=== PATIENT | male | born 1945 | race Caucasian/White ===

== ENCOUNTER → 2017-01-21 | Outpatient (CLI) | payer BC ==
[~2017-01-21] MED LIST: ADVA500A INH; AMLO5TAB2 PO; DIAZ10 PO; DIGO0.25 PO; DILT-48 PO; FENO160T PO; FURO1TAB60 PO; GABA300C5 PO; IPRASOL INH; LANO0.2510 PO; LANTUS2P SQ; LIPI40TA PO; METF1000 PO; MORP15TA73 PO; MORP60TA24 PO; PERC7.5T13 PO; RAMI10CA PO; VENTAER INH; VICT18IN SQ; XARE20TA PO
--- NOTE | 2017-01-24 10:39 | RADRPT ---
EXAM DATE/TIME: 01/21/2017 15:21 [facility] COMPARISON : No previous studies available for comparison. INDICATIONS : Evaluate clinical information and images for possible cryoablation procedure. The patient's outside CT scan was reviewed. This demonstrates a 1.5 cm mass arising from the lower po le of the left kidney. The lesion is in a location which would be amenable to biopsy and CT-guided cr yoablation. IMPRESSION: The patient's left renal mass would be amenable to CT-guided biopsy and cryoablation. Kendall Schmidt MD on January 24, 2017 at 10:35 Board Certified Radiologist. This report was verified electronically.
== END ==
LOC: HRAD 15:18
PROVIDERS: ATTEND Urology
DX: N28.89 Other specified disorders of kidney and ureter (principal)

== ENCOUNTER 2017-02-02 13:08 | Day surgery (SDC) | payer BC ==
[~2017-02-02 13:08] MED LIST changes: -DIAZ10 PO; -DIGO0.25 PO; -IPRASOL INH; -MORP60TA24 PO
[2017-02-02 13:45] VITALS: BP 186/111; PULSE 85; RESP 20; TEMP 99.1; O2SAT 93
--- NOTE | 2017-02-02 14:47 | RADRPT ---
EXAM DATE/TIME: 02/02/2017 00:00 [facility] COMPARISON : INDICATIONS : Indeterminate renal mass OBJECTIVE: Temperature: 99.1 Heart Rate: 85 Blood Pressure: 186/111 Respiratory: 20 Oximetry: 93 PNEUMONIA VACCINE: HISTORY OF PRESENT ILLNESS: The patient is a 71-year-old with COPD. He is currently undergoing treatment for a right upper lobe m ass. A 1.5-2 cm complex cyst was noted in the lower pole of the left kidney. The patient presents for potential biopsy and cryoablation of this lesion. PAST MEDICAL HISTORY : Hypertension. Chronic obstructive pulmonary disease. Afib back pain blood in stool PAST SURGICAL HISTORY : <<L3-L5 surgery> MEDICATIONS: <<Albuterol >> <<Amlodipine 5 >> mg q.d. <<Atorvastin 40 >> mg q.d. <<Digoxin 0.25 >> mg q.d. Diltiazem ER 24 hr 240 mg q.d. Fenofibrate 160 mg q.d. Fluticasone-Salmeterol 500-50 mcg b.i.d. Lasix (Furosemide)40 mg q.d. Neurontin (Gabapentin)300 mg t.i.d. Lantus 44units q.h.s. IMAGING STUDIES: The patient's outside CT and MR imaging was reviewed. The patient's lesion is amenable to biopsy and cryoablation. ASSESSMENT: 1.5-2 cm mass arising from the left kidney. Lesion is indeterminate appearance by CT and MR but appea rs to have increased in size when compared to previous exams. Lesion would be amenable to biopsy and cryoablation. PLAN: Patient will be scheduled for cryoablation. TIME SPENT: 15 minutes. Kendall Schmidt MD on February 02, 2017 at 14:41 Board Certified Radiologist. This report was verified electronically.
[2017-02-03] MEDS ORDERED: MORP60TA24 PO (09:23)
[2017-02-03] MEDS ORDERED: IPRASOL INH (09:23)
[2017-02-03] MEDS ORDERED: DIAZ10 PO (09:23)
[2017-02-03] MEDS ORDERED: DIGO0.25 PO (09:23)
== END 2017-02-02 14:30 | disposition home or self-care (01) ==
LOC: HROP 13:08 → HRIP 13:14 → HROP 14:30
PROVIDERS: ATTEND Urology
DX: N28.89 Other specified disorders of kidney and ureter (principal); I10 Essential (primary) hypertension; J44.9 Chronic obstructive pulmonary disease, unspecified; I48.91 Unspecified atrial fibrillation

== ENCOUNTER 2017-02-03 08:46 | Day surgery (SDC) | payer BC ==
[~2017-02-03] VITALS: Ht 182.9 cm; Wt 117.3 kg
[~2017-02-03 08:46] MED LIST changes: +LIDOCAINE HCL 1% 20 ML VIAL ONE
[2017-02-03 09:04] VITALS: BP 158/96; PULSE 77; RESP 20; TEMP 98.5; O2SAT 93
[2017-02-03] MEDS ORDERED: ceFAZolin 2 GM PREMIX 50 ML IV SCH (09:15)
[2017-02-03] MEDS ORDERED: SODIUM CHLOR 0.9% 1000 ML INJ 1,000 ML IV SCH (09:15)
[2017-02-03] MEDS ORDERED: MORP60TA24 PO (09:23)
[2017-02-03] MEDS ORDERED: IPRASOL INH (09:23)
[2017-02-03] MEDS ORDERED: DIAZ10 PO (09:23)
[2017-02-03] MEDS ORDERED: DIGO0.25 PO (09:23)
[2017-02-03 09:38] LABS: AUTOMATED NEUTROPHIL # 4.5 TH/MM3 (1.8-7.7); BASOPHIL % 0.3 % (0.0-2.0); EOSINOPHIL # 0.1 TH/MM3 (0-0.4); HEMATOCRIT 42.6 % (39.0-51.0); HEMO FLAGS DIFF FINAL; LYMPH % 24.4 % (9.0-44.0); LYMPHOCYTE # 1.7 TH/MM3 (1.0-4.8); MEAN CELL VOLUME 89.9 FL (80.0-100.0); MEAN CORPUSCULAR HEMOGLOBIN 29.5 PG (27.0-34.0); MEAN CORPUSCULAR HGB CONC 32.8 % (32.0-36.0); MONO % 8.8 % (0.0-8.0); NEUT % 64.5 % (16.0-70.0); PLATELET COUNT 169 TH/MM3 (150-450); RED BLOOD COUNT 4.73 MIL/MM3 (4.50-5.90); RED CELL DISTRIBUTION WIDTH 13.1 % (11.6-17.2); WHITE BLOOD COUNT 6.9 TH/MM3 (4.0-11.0)
[2017-02-03] MEDS ORDERED: SODIUM CHLORID 0.9% 500 ML IV PRN (09:45)
[2017-02-03] MEDS ORDERED: POVIDONE IODINE 5% (ANTISEPSIS KIT) 4 APPLICATIONS EACH NARE PRN (09:45)
[2017-02-03] MEDS ORDERED: INSULIN HUMAN REGULAR 1,000 UNITS/10 ML VIAL SQ PRN (09:45)
[2017-02-03] MEDS ORDERED: CHLORHEXIDINE GLUCONATE 2 % 1 PACK (2 CLOTHS) TOPICAL PRN (09:45)
[2017-02-03] MEDS ORDERED: LACTATED RINGER'S 1000 ML IV PRN (09:45)
[2017-02-03] MEDS ORDERED: METOPROLOL TARTRATE 25 MG TAB PO PRN (09:45)
[2017-02-03 09:47] LABS: APTT (PATIENT) 26.5 SEC (24.3-30.1); INTERNATIONAL NORMALIZED RATIO 0.9 RATIO; PROTHROMBIN TIME - PATIENT 10.2 SEC (9.8-11.6)
[2017-02-03 09:51] LABS: BICARBONATE 26.8 MEQ/L (21.0-32.0); POTASSIUM 3.9 MEQ/L (3.5-5.1)
[2017-02-03] MEDS ORDERED: MIDAZOLAM HCL 2 MG/2 ML VIAL ONE (10:56)
[2017-02-03] MEDS ORDERED: fentaNYL CITRATE 250 MCG/5 ML AMP ONE (10:56)
[2017-02-03] MEDS ORDERED: SUGAMMADEX SODIUM 200 MG/2 ML VIAL IV PUSH ONE ×2 (12:52)
--- NOTE | 2017-02-03 13:17 | PD.RAD ---
Post Procedure Progress Note Pre Procedure Diagnosis: (1) Left kidney mass Post Procedure Diagnosis: (1) Left kidney mass Procedure Date: Feb 03, 2017 Supervising Radiologist: Kendall Schmidt Anesthesia: General, Local Plan of Activity Patient to Unit: PACU Patient Condition: Good Additional Comments: Post cryoablation of the left lower pole renal mass. Complete ablation of the mass on CT No evidence of complication on follow up CT See PACS Report for procedural detail/treatment Kendall Schmidt MD Feb 03, 2017 13:17
[2017-02-03] MEDS ORDERED: DO NOT ADM ANY ANTICOAGULANT DRUGS PRN (14:15)
[2017-02-03 14:17] LABS: AUTOMATED NEUTROPHIL # 3.5 TH/MM3 (1.8-7.7); BASOPHIL % 0.6 % (0.0-2.0); EOSINOPHIL # 0.1 TH/MM3 (0-0.4); EOSINOPHIL % 1.9 % (0.0-4.0); HEMATOCRIT 38.9 % (39.0-51.0); HEMO FLAGS DIFF FINAL; LYMPH % 28.3 % (9.0-44.0); LYMPHOCYTE # 1.6 TH/MM3 (1.0-4.8); MEAN CELL VOLUME 90.1 FL (80.0-100.0); MEAN CORPUSCULAR HEMOGLOBIN 30.2 PG (27.0-34.0); MEAN CORPUSCULAR HGB CONC 33.5 % (32.0-36.0); MONO % 8.4 % (0.0-8.0); NEUT % 60.8 % (16.0-70.0); PLATELET COUNT 143 TH/MM3 (150-450); RED BLOOD COUNT 4.32 MIL/MM3 (4.50-5.90); RED CELL DISTRIBUTION WIDTH 13.1 % (11.6-17.2); WHITE BLOOD COUNT 5.7 TH/MM3 (4.0-11.0)
[2017-02-03 14:30] VITALS: BP 142/73; PULSE 68; RESP 18; TEMP 97.8; O2SAT 90
[2017-02-03 15:00] VITALS: BP 127/74; PULSE 72; RESP 16; O2SAT 94
--- NOTE | 2017-02-03 15:29 | EKG ---
Date Performed: 02/03/2017 Time Performed: 09:44:52 PTAGE: 71 years EKG: Sinus rhythm WITH SINUS ARRHYTHMIA MODERATE INTRAVENTRICULAR CONDUCTION DELAY BORDERLINE ECG Compared to prior tr acing no significant change PREVIOUS TRACING : 09/28/2015 21.30 DOCTOR: Dakota Mesa Interpretating Date/Time 02/03/2017 15:28:57
[2017-02-03 15:30] VITALS: BP 131/78; PULSE 74; RESP 18; O2SAT 94
[2017-02-03 15:54] LABS: AUTOMATED NEUTROPHIL # 6.5 TH/MM3 (1.8-7.7); BASOPHIL % 0.1 % (0.0-2.0); EOSINOPHIL # 0.1 TH/MM3 (0-0.4); EOSINOPHIL % 0.9 % (0.0-4.0); HEMATOCRIT 39.1 % (39.0-51.0); HEMO FLAGS DIFF FINAL; LYMPH % 14.2 % (9.0-44.0); LYMPHOCYTE # 1.2 TH/MM3 (1.0-4.8); MEAN CELL VOLUME 89.9 FL (80.0-100.0); MEAN CORPUSCULAR HEMOGLOBIN 30.5 PG (27.0-34.0); MEAN CORPUSCULAR HGB CONC 33.9 % (32.0-36.0); MONO % 7.3 % (0.0-8.0); NEUT % 77.5 % (16.0-70.0); PLATELET COUNT 139 TH/MM3 (150-450); RED BLOOD COUNT 4.35 MIL/MM3 (4.50-5.90); WHITE BLOOD COUNT 8.4 TH/MM3 (4.0-11.0)
[2017-02-03 16:00] VITALS: BP 125/76; PULSE 76; RESP 18; O2SAT 92
[2017-02-03 17:00] VITALS: BP 130/78; PULSE 75; RESP 18; O2SAT 93
--- NOTE | 2017-02-03 18:06 | RADRPT ---
EXAM DATE/TIME: 02/03/2017 12:14 [facility] COMPARISON: CT SIMULATION, December 04, 2015, 14:17. INDICATIONS : Left renal mass. BIOPSY SITE: Left kidney. Anesthesia and pain control was provided by the Anesthesia department. DEVICE(S): 1.) 20 gauge Temno core biopsy needle MEDICAL HISTORY : Benign prostatic hyperplasia, (BPH) Chronic obstructive pulmonary disease. Hypertension. Cardiovascul ar disease, COPD, diabetes. SURGICAL HISTORY : None. ENCOUNTER: Initial ACUITY: 1 day PAIN SCORE: 0/10 LOCATION: Left flank A total of one core specimen(s) were obtained and sent to the laboratory for pathologic evaluation. PROCEDURE: 1. CT guided renal biopsy. 2. Conscious sedation with continuous EKG and oximetry monitoring. 3. EKG and oximetry remained stable throughout the procedure. Prior to the procedure informed consent was obtained. Any appropriate prior imaging studies were rev iewed. Using automated exposure control and adjustment of the mA and/or kV according to patient size, radiat ion dose was kept as low as reasonably achievable to obtain optimal diagnostic quality images. The site was prepped in a sterile fashion. Full sterile technique was used, including cap, mask, anahy rile gloves and gown and a large sterile sheet. Hand hygiene and 2% chlorhexidine and/or betadine/al cohol prep was utilized per protocol for cutaneous antisepsis. The skin and subcutaneous tissues wer e infiltrated with local anesthetic solution. With CT guidance the previously identified target was localized. Biopsy was performed using a 20 gaug e Temno biopsy needle. Adequate hemostasis was obtained with compression at the puncture site. Follow-up CT scan reveals no hemorrhage. The patient tolerated the procedure well and there were no complications. This was immediately follow ed by cryoablation of the lesion CONCLUSION: Uncomplicated CT guided biopsy. Kendall Schmidt MD on February 03, 2017 at 18:03 Board Certified Radiologist. This report was verified electronically.
--- NOTE | 2017-02-03 18:30 | RADRPT ---
EXAM DATE/TIME: 02/03/2017 12:14 INDICATIONS : Left renal mass. Anesthesia and pain control was provided by the Anesthesia department. DEVICE(S): 1.) Cryoablation probe MEDICAL HISTORY : Cardiovascular disease. Benign prostatic hyperplasia, (BPH) Chronic obstructive pulmonary disease. Hy pertension, diabetes. SURGICAL HISTORY : None. ENCOUNTER: Initial ACUITY: 1 day PAIN SCORE: 0/10 LOCATION: PROCEDURE : 1. CT guided cryoablation. Under sterile conditions and using aseptic technique with CT guidance the left lower pole renal mass was localized . Using automated exposure control and adjustment of the mA and/or kV according to pat ient size, radiation dose was kept as low as reasonably achievable to obtain optimal diagnostic quali ty images. [employer] Cryoprobe was advanced down into the center of the lesion without difficulty. A freeze- thaw, freeze-thaw technique was employed and serial imaging demonstrated an ice ball encompassing the entire lesion. Post procedure images demonstrate expected postoperative changes without evidence of hematoma. The patient tolerated the procedure well. CONCLUSION: Uncomplicated cryoablation as above. Kendall Schmidt MD on February 03, 2017 at 18:26 Board Certified Radiologist. This report was verified electronically.
== END 2017-02-03 17:10 | disposition home or self-care (01) ==
LOC: HRAD 08:46 → HRIP 08:50 → HRAD 17:10
PROVIDERS: ATTEND Urology
DX: N28.89 Other specified disorders of kidney and ureter (principal); I25.10 Atherosclerotic heart disease of native coronary artery without angina pectoris; I10 Essential (primary) hypertension; E11.9 Type 2 diabetes mellitus without complications; J44.9 Chronic obstructive pulmonary disease, unspecified; E78.5 Hyperlipidemia, unspecified; N40.0 Benign prostatic hyperplasia without lower urinary tract symptoms; I48.91 Unspecified atrial fibrillation; G47.30 Sleep apnea, unspecified; M35.9 Systemic involvement of connective tissue, unspecified; E66.9 Obesity, unspecified; Z68.35 Body mass index [BMI] 35.0-35.9, adult; Z79.51 Long term (current) use of inhaled steroids; Z79.4 Long term (current) use of insulin; Z79.84 Long term (current) use of oral hypoglycemic drugs
CPT/HCPCS: 50200; 50593; 77012; 77013; 80048; 85025; 85610; 85730; 88305; 88341; 88342; 93005; C2618; J2250; J3010; J7030

== ENCOUNTER 2017-02-11 12:49 | Day surgery (SDC) | payer BC ==
[~2017-02-11 12:49] MED LIST changes: +DIAZ10 PO; +DIGO0.25 PO; +IPRASOL INH; -LANO0.2510 PO; -LIDOCAINE HCL 1% 20 ML VIAL ONE; -MORP15TA73 PO; +MORP60TA24 PO; -XARE20TA PO
--- NOTE | 2017-02-11 14:20 | RADRPT ---
EXAM DATE/TIME: 02/11/2017 00:00 [facility] COMPARISON : INDICATIONS : FOLLOW UP RENAL CRYOABLATION OBJ Temperature: 97.5 Heart Rate: 96 Respiratory: 18 Oximetry: 96 HISTORY OF PRESENT ILLNESS: The patient is post cryoablation of a 1.5 cm mass arising from the lower pole of the left kidney. Sim ultaneous biopsy was performed which was positive for renal cell carcinoma. IMAGING STUDIES: The patient's intraoperative CT imaging were reviewed with the patient and his . ASSESSMENT: Uncomplicated cryoablation of the patient's renal mass. The biopsy was positive for renal cell carcin patricia. PLAN: Patient will see Dr. Thrasher for followup. TIME SPENT: 15 minutes. Kendall Schmidt MD on February 11, 2017 at 14:15 Board Certified Radiologist. This report was verified electronically.
== END 2017-02-11 13:35 | disposition home or self-care (01) ==
LOC: HROP 12:49 → HRIP 13:02 → HROP 13:35
PROVIDERS: ATTEND Radiology Body Imaging
DX: C64.2 Malignant neoplasm of left kidney, except renal pelvis (principal)

== ENCOUNTER 2018-03-08 20:31 | Inpatient (IN) ==
--- NOTE | 2018-03-08 22:05 | XR ---
EXAM DATE: 03/08/2018 9:31 PM EDT AGE/SEX: 72 years / Male INDICATIONS: . Short of breath. CLINICAL DATA: This is the patient's initial encounter. Patient reports that signs and symptoms have been present for 1 day and indicates a pain score of 3/10. MEDICAL/SURGICAL HISTORY: None. None. COMPARISON: [facility], CHEST SINGLE AP, 09/28/2015. [facility], CT CHEST W/O CONTRAST, 12/30/2017. . FINDINGS: Linear opacity in the right upper lung and elevation of the right hemidiaphragm is similar to prior C T performed in December 2017. There is indistinctness of the bronchopulmonary markings right infrahilar re gion which correlates with some nonconsolidative opacities seen on prior CT. The left lung is clear. The heart is upper limits normal in size. CONCLUSION: Volume loss in the right hemithorax with opacities in the right upper and medial lower lung, similar to prior CT in December 2017. Electronically signed by: Rahat Ling MD 03/08/2018 10:03 PM EDT
[2018-03-08 22:34] LABS: Baso % (Auto) 0.4 % (0.0-2.0); Eos # (Auto) 0.1 th/mm3 (0.0-0.4); Hematocrit 41.3 % (39.0-51.0); Hemoglobin 13.6 gm/dL (13.0-17.0); Lymph % (Auto) 19.5 % (9.0-44.0); Mean Corpuscular HGB Conc 32.9 % (32.0-36.0); Mean Corpuscular Hemoglobin 30.3 pg (27.0-34.0); Mean Corpuscular Volume 92.1 fL (80.0-100.0); Mean Platelet Volume 9.4 fL (7.0-11.0); Mono # (Auto) 0.7 th/mm3 (0.0-0.9); Mono % (Auto) 7.2 % (0.0-8.0); Neut # (Auto) 7.3 th/mm3 (1.8-7.7); Neut % (Auto) 71.9 % (16.0-70.0); Platelet Count 170 th/mm3 (150-450); Red Blood Count 4.49 mil/mm3 (4.50-5.90); Red Cell Distribution Width 13.7 % (11.6-17.2); White Blood Count 10.1 th/mm3 (4.0-11.0)
--- NOTE | 2018-03-08 22:37 | ED ---
HPI General Chief Complaint: Shortness of Breath/Dyspnea Stated Complaint: SOB Time Seen by Provider: 03/08/18 20:50 Source: patient Mode of arrival: EMS Limitations: no limitations History of Present Illness MD Complaint: shortness of breath Onset (ago): hour(s) (2) Severity: severe Consistency/Duration: constant and progressively worsening Relieving factors: nothing Known history of: COPD and congestive heart failure Associated symptoms: denies other symptoms Treatment prior to arrival: oxygen and bronchodilator Related Data Home oxygen amount: 2 liters Home Medications Medication Instructions Recorded Confirmed albuterol sulfate 0.63 mg INHALATION Q4-6H PRN 03/08/18 03/08/18 albuterol sulfate [Ventolin HFA] 2 puff INHALATION Q4-6H PRN 03/08/18 03/08/18 amlodipine 5 mg PO DAILY 03/08/18 03/08/18 aspirin 81 mg PO DAILY 03/08/18 03/08/18 atorvastatin [Lipitor] 40 mg PO DAILY 03/08/18 03/08/18 canagliflozin [Invokana] 300 mg PO DAILY 03/08/18 03/08/18 diazepam [Valium] 10 mg PO BID PRN 03/08/18 03/08/18 digoxin 0.125 mg PO DAILY 03/08/18 03/08/18 diltiazem HCl 240 mg PO DAILY 03/08/18 03/08/18 fenofibrate 160 mg PO DAILY 03/08/18 03/08/18 fluticasone-salmeterol [Advair 2 INHALATION DAILY 03/08/18 Diskus] furosemide 40 mg PO DAILY 03/08/18 03/08/18 glipizide 10 mg PO DAILY 03/08/18 03/08/18 insulin glargine [Basaglar KwikPen 60 unit SUB-Q DAILY 03/08/18 03/08/18 U-100 Insulin] ipratropium bromide 1 puff INHALATION Q6H 03/08/18 03/08/18 metformin 1,000 mg PO BID 03/08/18 03/08/18 morphine 15 mg PO Q8H 03/08/18 03/08/18 oxycodone-acetaminophen [Percocet] 1 tab PO Q8H PRN 03/08/18 03/08/18 ramipril 20 mg PO DAILY 03/08/18 03/08/18 Allergies Allergy/AdvReac Type Severity Reaction Status Date / Time No Known Allergies Allergy Unverified 03/08/18 20:43 Review of Systems Except as stated in HPI: all other systems reviewed are negative [facility] Medical History Medical History Diabetes (Acute) End stage COPD (Acute) Hypertension (Acute) Social History Social History Substance History: No History of Abuse Second Hand Smoke Exposure: No Smoking Status: Never smoker How Often Do You Have a Drink Containing Alcohol: Never Recent Travel in [facility] within the Last 8 Weeks: No Recent Out of Country Travel within the Last 8 Weeks: No Immunization History Tetanus Immunization: Unsure Exam Const General: cooperative Nutritional Appearance: obese Orientation: alert, awake and oriented x3 HENMT Head: normocephalic and atraumatic Eyes General: appearance normal, both eyes and all related structures Pupils: PERRL Neck Neck: normal visual inspection and full ROM Chest Chest: normal inspection of the chest Resp Effort & Inspection: normal respiratory effort and able to speak in complete sentences Auscultation: clear to auscultation bilaterally Cardio Rate: regular rate Rhythm: regular rhythm Back/Spine/Pelvis Cervical Spine: cervical ROM normal Thoracic/Lumbar Spine: thoraco-lumbar ROM normal Skin General: no rashes or lesions noted and turgor normal Neuro General: alert, awake, oriented x3, moves all extremities and CN's II-XI intact bilaterally Extrem General: normal to inspection, full ROM and no pedal edema Psych Appearance: grossly normal Mental Status: mental status grossly normal Speech and Movement: speech and movement normal Mood: congruent mood Affect: normal affect Attitude: cooperative Thought Process: normal Thought Content: normal Judgment: judgment good Course Consultations Consultation #1: Dr. Huston Initial Documented Vital Signs Temperature 99.7 F H 03/08/18 20:37 Pulse Rate 101 H 03/08/18 20:37 Respiratory Rate 24 03/08/18 20:37 Blood Pressure 179/86 H 03/08/18 20:37 Pulse Oximetry 91 L 03/08/18 20:37 Last Documented Vital Signs Temperature 99.7 F H 03/08/18 20:37 Pulse Rate 106 H 03/09/18 00:06 Respiratory Rate 17 03/09/18 00:06 Blood Pressure 179/86 H 03/08/18 20:43 Pulse Oximetry 91 L 03/08/18 20:43 Medical Decision Making MDM Narrative Medical decision making narrative: This patient is not O2 dependent COPD patient who has had a previous history of respiratory failure who presents to us with the acute onset of increased dyspnea. He reports that he removed his oxygen to go to the bathroom. His sats dropped to 61% off of oxygen. His states that he seemed very confused. [facility] was called and he was brought to the hospital. He was treated in route with a nebulizer treatment. He is normally on oxygen at 2 L and has a usual oxygen saturation of 88-89%. He is now on 3 L with a saturation of 88-89%. His lungs are clear. Differential Diagnosis Differential Diagnosis: Differential diagnosis of dyspnea includes but is not limited to congestive heart failure, pneumonia, wheezing, pneumothorax, pulmonary embolism Medical Records Medical records reviewed: Yes I reviewed the patient's medical records. Patient has a history of end-stage COPD. He takes Lasix and Lanoxin which would suggest to me that he also has CHF. This patient's workup in the emergency department is basically negative. However, he has required increased oxygen in the emergency department. He will be admitted to observation. Lab Data Result diagrams: 03/08/18 21:05 03/08/18 21:05 Lab Results 03/08/18 03/08/18 03/08/18 Range/Units 21:05 21:05 21:05 WBC 10.1 (4.0-11.0) th/mm3 RBC 4.49 L (4.50-5.90) mil/mm3 Hgb 13.6 (13.0-17.0) gm/dL Hct 41.3 (39.0-51.0) % MCV 92.1 (80.0-100.0) fL MCH 30.3 (27.0-34.0) pg MCHC 32.9 (32.0-36.0) % RDW 13.7 (11.6-17.2) % Plt Count 170 (150-450) th/mm3 MPV 9.4 (7.0-11.0) fL Neut % (Auto) 71.9 H (16.0-70.0) % Lymph % (Auto) 19.5 (9.0-44.0) % [place] % (Auto) 7.2 (0.0-8.0) % Eos % (Auto) 1.0 (0.0-4.0) % Baso % (Auto) 0.4 (0.0-2.0) % Neut # (Auto) 7.3 (1.8-7.7) th/mm3 Lymph # (Auto) 2.0 (1.0-4.8) th/mm3 [place] # (Auto) 0.7 (0.0-0.9) th/mm3 Eos # (Auto) 0.1 (0.0-0.4) th/mm3 Baso # (Auto) 0.0 (0.0-0.2) th/mm3 WBC Differential . Differential Comment Auto diff final Sodium 143 (136-145) meq/L Potassium 4.6 (3.5-5.1) meq/L Chloride 102 (98-107) meq/L Carbon Dioxide 36.9 H (21.0-32.0) meq/L Anion Gap 4 L (5-15) meq/L BUN 17 (7-18) mg/dL Creatinine 0.79 (0.60-1.30) mg/dL Estimated GFR Greater than 89 (>89) mL/min Random Glucose 149 H (74-106) mg/dL Calcium 8.8 (8.5-10.1) mg/dL Total Bilirubin 0.3 (0.2-1.0) mg/dL AST 24 (15-37) U/L ALT 37 (12-78) U/L Alkaline Phosphatase 66 (45-117) U/L Troponin I Less than 0.02 L (0.02-0.05) ng/mL B-Natriuretic Peptide 7 (0-100) pg/mL Total Protein 7.4 (6.4-8.2) g/dL Albumin 3.9 (3.4-5.0) g/dL Imaging Data Radiologist's impression: Chest X-Ray 03/08/18 20:53 CONCLUSION: Volume loss in the right hemithorax with opacities in the right upper and medial lower lung, similar to prior CT in December 2017. ECG Data EKG Prior to Arrival: No Attestation: I personally reviewed and interpreted this ECG as follows: (EKG shows a sinus rhythm with a ventricular rate of 98. He has left axis deviation. There are no acute STT wave changes.) Discharge Plan Discharge Disposition Patient Disposition: 30 Still Patient Discharge Condition Condition: Stable Discharge Details Diagnosis: Acute exacerbation of chronic obstructive airways disease Physicians Team ED Provider: Gabbi Angeles Primary Care Provider: Parviz Covington Rxs /Orders / Referrals /Forms Prescriptions: No Action furosemide 40 mg Tablet 40 mg PO DAILY RF: 0 atorvastatin [Lipitor] 40 mg Tablet 40 mg PO DAILY RF: 0 albuterol sulfate 0.63 mg/3 mL Solution For Nebulization 0.63 mg INHALATION Q4-6H PRN (Reason: Shortness Of Breath) RF: 0 glipizide 10 mg Tablet 10 mg PO DAILY RF: 0 diltiazem HCl 240 mg Capsule,Extended Release 24 Hr 240 mg PO DAILY RF: 0 amlodipine 5 mg Tablet 5 mg PO DAILY RF: 0 fluticasone-salmeterol [Advair Diskus] 500-50 mcg/dose Blister With Device 2 Inhalation DAILY RF: 0 aspirin 81 mg Tablet,Chewable 81 mg PO DAILY RF: 0 morphine 15 mg Tablet Extended Release 15 mg PO Q8H RF: 0 digoxin 125 mcg Tablet 0.125 mg PO DAILY RF: 0 diazepam [Valium] 10 mg Tablet 10 mg PO BID PRN (Reason: Spasms) RF: 0 oxycodone-acetaminophen [Percocet] 7.5-325 mg Tablet 1 tab PO Q8H PRN (Reason: Pain) RF: 0 albuterol sulfate [Ventolin HFA] 90 mcg/actuation Hfa Aerosol Inhaler 2 puff INHALATION Q4-6H PRN (Reason: Shortness Of Breath Or Wheezing) RF: 0 metformin 500 mg Tablet Extended Release 24 Hr 1,000 mg PO BID RF: 0 ramipril 10 mg Capsule 20 mg PO DAILY RF: 0 ipratropium bromide 17 mcg/actuation Hfa Aerosol Inhaler 1 puff INHALATION Q6H RF: 0 fenofibrate 160 mg Tablet 160 mg PO DAILY RF: 0 insulin glargine [Basaglar KwikPen U-100 Insulin] 100 unit/mL (3 mL) Insulin Pen 60 unit SUB-Q DAILY RF: 0 canagliflozin [Invokana] 300 mg Tablet 300 mg PO DAILY RF: 0 Status ED Status: With Doctor
[2018-03-08 22:59] LABS: Alkaline Phosphatase 66 U/L (45-117); Total Protein 7.4 g/dL (6.4-8.2)
[2018-03-08 23:00] LABS: Alanine Aminotransferase 37 U/L (12-78); Albumin 3.9 g/dL (3.4-5.0); Anion Gap 4 meq/L (5-15); Aspartate Aminotransferase 24 U/L (15-37); Blood Urea Nitrogen 17 mg/dL (7-18); Calcium 8.8 mg/dL (8.5-10.1); Carbon Dioxide 36.9 meq/L (21.0-32.0); Chloride 102 meq/L (98-107); Glomerular Filtration Rate Greater Than 89 mL/min (>89); Glucose,Random 149 mg/dL (74-106); Sodium 143 meq/L (136-145)
[2018-03-08 23:01] LABS: Potassium 4.6 meq/L (3.5-5.1)
[2018-03-08] MEDS ORDERED: Temazepam 15 MG Capsule PO PRN (23:30)
[2018-03-08] MEDS ORDERED: Acetaminophen 325 MG Tablet PO PRN (23:30)
[2018-03-08] MEDS ORDERED: Bisacodyl 10 MG Supp RECTAL PRN (23:30)
[2018-03-08] MEDS ORDERED: diazePAM 5 MG Tablet PO PRN (23:31)
[2018-03-08] MEDS ORDERED: Dextrose 50% in Water 50 ML Vial IV.PUSH PRN (23:32)
--- NOTE | 2018-03-09 01:19 | P.HPIM ---
History of Present Illness Primary Care Physician: Parviz Covington MD History of Present Illness: 72 y/o male with a history of COPD on 2L at home, HTN, HLD, DM presented to the ED with complaints of shortness of breath. Patient states while at home he had a desaturation of o2 into the 60s while on his 2L, and he states he could not catch his breath. He denies any chest pain, cough, sputum production, fever or chills. He states he just feels fatigued. Prior to arrival EMS gave patient solumedrol IV and patient states he feels a little better. Patient is currently sating 85 on 3L, o2 was increased to 4L on examination. Patient denies any use of a nebulizer at home, but thinks he may like one. - Diagnosis (1) Acute exacerbation of chronic obstructive airways disease Review of Systems All other systems reviewed negative except as stated in HPI PMFSH - History History Provided By: Patient - Medical History Medical History: Medical History (Last Updated 03/09/18 @ 01:23 by VIDAL Brody) Afib Diabetes End stage COPD Hypertension - Surgical History Surgical History: Surgical History (Last Updated 03/09/18 @ 01:23 by VIDAL Brody) No history of previous surgery - Tobacco History Second Hand Smoke Exposure: No Tobacco Use In Past 30 Days: No Smoking Status: Never smoker - Alcohol History How Often Do You Have a Drink Containing Alcohol: Never - Substance Use History Substance History: No History of Abuse, Active Abuse, Past History - Travel History Recent Travel in the [place] Within the Last 8 Weeks: No Recent Travel Out of the Country Within the Last 8 Weeks: No - Immunization History Tetanus Immunization: <5 Years Hx Influenza Vaccine This Season: Yes Medications and Allergies Active Medications: Active Medications Acetaminophen (Tylenol) 650 mg PO Q4H PRN PRN Reason: Temp > 100.4 Al Hydroxide/Mg Hydroxide (Milk Of Magnesia Liq) 30 ml PO Q12H PRN PRN Reason: Mild Constipation Albuterol (Duoneb Neb (Gaurav)) 1 ampul NEB Q4HR NEB [facility] Last Admin: 03/09/18 00:01 Dose: 1 ampul Amlodipine Besylate (Norvasc) 5 mg PO DAILY [facility] Aspirin (Aspirin Chew) 81 mg PO DAILY [facility] Atorvastatin Calcium (Lipitor) 40 mg PO DAILY [facility] Bisacodyl (Dulcolax Supp) 10 mg RECTAL DAILY PRN PRN Reason: SEVERE CONSITIPATION Budesonide/Formoterol Fumarate (Symbicort 160/4.5 Mcg Inh) 2 puff INH DAILY [facility] Dextrose (D50w Vial) 50 ml IV.PUSH UNSCH PRN PRN Reason: PER HYPOGLYCEMIA PROTOCOL Diazepam (Valium) 10 mg PO BID PRN PRN Reason: ANXIETY Digoxin (Lanoxin) 125 mcg PO DAILY [facility] Diltiazem HCl (Cardizem Cd 24hr) 240 mg PO DAILY [facility] Fenofibrate (Tricor) 145 mg PO DAILY [facility] Furosemide (Lasix) 40 mg PO DAILY [facility] Glucagon (Glucagon Inj) 1 mg OTHER PRN PRN PRN Reason: for Hypoglycemia Protocol Heparin Sodium (Porcine) (Heparin Inj) 5,000 units SQ Q12H [facility] Insulin Human Regular (Novolin R Correctional Sugar Inj) 0 units SQ ACHS AND 3AM [facility]; Protocol Lactulose (Lactulose Liq) 30 ml PO DAILY PRN PRN Reason: SEVERE CONSITIPATION Methylprednisolone Sodium Succinate (Solumedrol Inj) 60 mg IV.PUSH Q6H [facility] Morphine Sulfate (Oramorph Sr) 15 mg PO Q8H [facility] Ondansetron HCl (Zofran Inj) 4 mg IV.PUSH Q6H PRN PRN Reason: NAUSEA OR VOMITING Patient Own Medication- (Insulin Glargine [Basaglar Kwikpen U-100 Insulin] 0 each SQ DAILY [facility] Senna/Docusate Sodium (Hoda-Colace) 1 tab PO BID [facility] Sennosides (Senokot) 17.2 mg PO Q12H PRN PRN Reason: Moderate Constipation Sodium Chloride (Ns Flush) 2 ml IV.FLUSH BID [facility] Sodium Chloride (Ns Flush) 2 ml IV.FLUSH PRN PRN PRN Reason: FLUSH AFTER USING IV ACCESS Temazepam (Restoril) 15 mg PO HS PRN PRN Reason: INSOMNIA Allergies Allergy/AdvReac Type Severity Reaction Status Date / Time No Known Allergies Allergy Unverified 03/08/18 20:43 Home Medications Medication Instructions Recorded Confirmed Type albuterol sulfate 0.63 mg INHALATION Q4-6H PRN 03/08/18 03/08/18 History albuterol sulfate [Ventolin HFA] 2 puff INHALATION Q4-6H PRN 03/08/18 03/08/18 History amlodipine 5 mg PO DAILY 03/08/18 03/08/18 History aspirin 81 mg PO DAILY 03/08/18 03/08/18 History atorvastatin [Lipitor] 40 mg PO DAILY 03/08/18 03/08/18 History canagliflozin [Invokana] 300 mg PO DAILY 03/08/18 03/08/18 History diazepam [Valium] 10 mg PO BID PRN 03/08/18 03/08/18 History digoxin 0.125 mg PO DAILY 03/08/18 03/08/18 History diltiazem HCl 240 mg PO DAILY 03/08/18 03/08/18 History fenofibrate 160 mg PO DAILY 03/08/18 03/08/18 History fluticasone-salmeterol [Advair 2 INHALATION DAILY 03/08/18 History Diskus] furosemide 40 mg PO DAILY 03/08/18 03/08/18 History glipizide 10 mg PO DAILY 03/08/18 03/08/18 History insulin glargine [Basaglar KwikPen 60 unit SUB-Q DAILY 03/08/18 03/08/18 History U-100 Insulin] ipratropium bromide 1 puff INHALATION Q6H 03/08/18 03/08/18 History metformin 1,000 mg PO BID 03/08/18 03/08/18 History morphine 15 mg PO Q8H 03/08/18 03/08/18 History oxycodone-acetaminophen [Percocet] 1 tab PO Q8H PRN 03/08/18 03/08/18 History ramipril 20 mg PO DAILY 03/08/18 03/08/18 History Exam Vital signs: Vital Signs 03/08/18 20:37 03/08/18 20:43 03/09/18 00:06 Temperature 99.7 F H Pulse Rate 101 H 100 H 106 H Respiratory Rate 24 24 17 Blood Pressure 179/86 H 179/86 H Pulse Oximetry 91 L 91 L 03/09/18 00:45 Temperature Pulse Rate 103 H Respiratory Rate 19 Blood Pressure 148/83 H Pulse Oximetry 88 L Intake & Output 03/08/18 03/08/18 03/09/18 06:59 18:59 06:59 Weight 113.398 kg - Constitutional mild distress - Routine HEENT Exam Head: Present: normocephalic Eye: Present: EOMI, PERRL - Routine Neck Exam Present: supple, full ROM. Absent: JVD - Routine Respiratory Exam Present: decreased breath sounds, diminished air movement. Absent: rhonchi, wheezes - Routine Cardiovascular Exam Present: RRR - Routine Abdominal Exam Present: soft, normoactive bowel sounds. Absent: distended - Routine Extremities Exam Present: full ROM. Absent: cyanosis, edema - Routine Skin Exam Present: intact, warm - Routine Neurological Exam Present: alert, oriented X3 Results - Labs CBC & Chem 7: 03/08/18 21:05 03/08/18 21:05 Labs: Short CBC 03/08/18 Range/Units 21:05 WBC 10.1 (4.0-11.0) th/mm3 Hgb 13.6 (13.0-17.0) gm/dL Hct 41.3 (39.0-51.0) % Plt Count 170 (150-450) th/mm3 BMP 03/08/18 21:05 Sodium 143 Potassium 4.6 Chloride 102 Carbon Dioxide 36.9 H BUN 17 Creatinine 0.79 Calcium 8.8 Cardiac Enzymes 03/08/18 Range/Units 21:05 Troponin I Less than 0.02 L (0.02-0.05) ng/mL Liver Function 03/08/18 Range/Units 21:05 Total Bilirubin 0.3 (0.2-1.0) mg/dL AST 24 (15-37) U/L ALT 37 (12-78) U/L Alkaline Phosphatase 66 (45-117) U/L Albumin 3.9 (3.4-5.0) g/dL - Imaging Impressions Chest X-Ray 03/08/18 20:53 CONCLUSION: Volume loss in the right hemithorax with opacities in the right upper and medial lower lung, similar to prior CT in December 2017. Caprini VTE Risk Assessment Caprini VTE Risk Assessment: Moderate/High Risk (score >= 2) Caprini Risk Assessment Model: Point Value = 1 Point Value = 2 Point Value = 3 Point Value = 5 Age 41-60 Minor surgery BMI > 25 kg/m2 Swollen legs Varicose veins or History of unexplained or recurrent spontaneous Oral contraceptives or hormone replacement Sepsis (< 1 month) Serious lung disease, including pneumonia (< 1 month) Abnormal pulmonary function Acute myocardial infarction Congestive heart failure (< 1 month) History of inflammatory bowel disease Medical patient at bed rest Age 61-74 Arthroscopic surgery Major open surgery (> 45 min) Laparoscopic surgery (> 45 min) Malignancy Confined to bed (> 72 hours) Immobilizing plaster cast Central venous access Age >= 75 History of VTE Family history of VTE Factor V Leiden Prothrombin [id number] Lupus anticoagulant Anticardiolipin antibodies Elevated serum homocysteine Heparin-induced thrombocytopenia Other congenital or acquired thrombophilia Stroke (< 1 month) Elective arthroplasty Hip, pelvis, or leg fracture Acute spinal cord injury (< 1 month) Prophylaxis Regimen: Total Risk Factor Score Risk Level Prophylaxis Regimen 0-1 Low Early ambulation 2 Moderate Order ONE of the following: *Sequential Compression Device (SCD) *Heparin 5000 units SQ BID 3-4 Higher Order ONE of the following medications: *Heparin 5000 units SQ TID *Enoxaparin/Lovenox 40 mg SQ daily (WT < 150 kg, CrCl > 30 mL/min) *Enoxaparin/Lovenox 30 mg SQ daily (WT < 150 kg, CrCl > 10-29 mL/min) *Enoxaparin/Lovenox 30 mg SQ BID (WT < 150 kg, CrCl > 30 mL/min) AND/OR *Sequential Compression Device (SCD) 5 or more Highest Order ONE of the following medications: *Heparin 5000 units SQ TID (Preferred with Epidurals) *Enoxaparin/Lovenox 40 mg SQ daily (WT < 150 kg, CrCl > 30 mL/min) *Enoxaparin/Lovenox 30 mg SQ daily (WT < 150 kg, CrCl > 10-29 mL/min) *Enoxaparin/Lovenox 30 mg SQ BID (WT < 150 kg, CrCl > 30 mL/min) AND *Sequential Compression Device (SCD) Assessment and Plan - Assessment (1) Acute exacerbation of chronic obstructive airways disease Code(s): J44.1 - Chronic obstructive pulmonary disease with (acute) exacerbation Status: Acute - Plan 72 y/o male with a history of COPD on 2L at home, HTN, HLD, DM presented to the ED with complaints of shortness of breath. Copd exacerbation on chronic COPD Chest x ray reviewed and unremarkable -DuoNeb and solumedrol IV ordered -Oxygen as needed, titrate for 02< 88 -Patient may benefit from a home nebulizer -Resume home medication inhalers HTN, chronic, controlled -Resume home medications, monitor vitals Diabetes, chronic -Accu checks with SSI -Diabetic diet Afib, chronic, controlled -Resume home medication dig and Cardizem po -Monitor telemetry DVT prophylaxis: Heparin SQ Discussed Condition With: Patient and rN H&P: Quality - VTE Deep Vein Thrombosis/Pulmonary Embolism Present on Admission: No
[2018-03-09] MEDS: Morphine Sulfate 15 MG SR Tablet PO SCH ×4 (03:43→23:52)
[2018-03-09] MEDS: MethylPREDNISolone Sod Succinate Inj 40 MG/ML Vial IV.PUSH SCH ×4 (03:44→18:31)
[2018-03-09] MEDS: Insulin NovoLIN Regular Correctional Sugar Inj SQ SCH ×5 (03:45→23:53)
[2018-03-09] MEDS: Heparin - SQ 10,000 UNITS/ML Vial SQ SCH ×2 (03:45→16:27)
[2018-03-09] MEDS ORDERED: FLUTICASONE SALMETEROL INHALATION SCH (09:00)
[2018-03-09] MEDS ORDERED: INSULIN GLARGINE SQ SCH (09:00)
[2018-03-09] MEDS: Senna/Docusate Sodium 8.6/50 MG Tablet PO SCH ×2 (10:11→23:52)
[2018-03-09] MEDS: Digoxin 125 MCG Tablet PO SCH (10:12)
[2018-03-09] MEDS: amLODIPine 5 MG Tablet PO SCH (10:13)
[2018-03-09] MEDS: dilTIAZem CD 240 MG Capsule PO SCH (10:13)
[2018-03-09] MEDS: Furosemide 40 MG Tablet PO SCH (10:13)
[2018-03-09] MEDS: Fenofibrate 145 MG Tablet PO SCH (10:29)
[2018-03-09] MEDS: Budesonide-Formoterol 160/4.5 MCG 6 GM Inhaler INH SCH (11:03)
--- NOTE | 2018-03-09 11:43 | P.PN ---
Subjective Interval history: Follow-up visit COPD exacerbation. Patient seen and examined today. Reports he is doing well. States he is able to breathe better. Discussed with patient plan with adjustment on his medication. Continue with IV steroids for now we will switch over to p.o. prednisone if he appears to be better tomorrow. He follows with Dr. Lopez pulmonology an outpatient. States that he has O2 nasal cannula even at home. Denies pain and discomfort. Denies chest pain, palpitations, headaches, dizziness. Denies fevers, chills, n/v/d. Denies dysuria. Seen of patient updated patient condition. Discussed with plan of treatment for the patient. states that patient has been on Xarelto previous year and has been discontinued because he developed bleeding in his urine. He had colonoscopy done by Dr. Alvarez last year and that they have mentioned several times causing the bleeding. ECHO 09/30/15 EF 50-55% Physical Exam Vital signs: Vital Signs 03/08/18 20:37 03/08/18 20:43 03/09/18 00:06 Temperature 99.7 F H Pulse Rate 101 H 100 H 106 H Respiratory Rate 24 24 17 Blood Pressure 179/86 H 179/86 H Pulse Oximetry 91 L 91 L 03/09/18 00:45 03/09/18 03:54 03/09/18 04:01 Temperature 98.6 F Pulse Rate 103 H 100 H 94 H Respiratory Rate 19 17 18 Blood Pressure 148/83 H 136/77 Pulse Oximetry 88 L 89 L 03/09/18 07:46 03/09/18 07:48 03/09/18 11:24 Temperature 97.9 F 97.8 F Pulse Rate 93 H 79 97 H Respiratory Rate 18 18 16 Blood Pressure 128/76 156/81 H Pulse Oximetry 92 L 93 L Intake & Output 03/08/18 03/09/18 03/09/18 18:59 06:59 18:59 Output Total 500 / 500 Balance -500 / -500 Weight 113.398 kg Output: Urine 500 / 500 Results - Labs CBC & Chem 7: 03/08/18 21:05 03/08/18 21:05 Laboratory Results - last 24 hr 03/08/18 03/08/18 03/08/18 21:05 21:05 21:05 WBC 10.1 RBC 4.49 L Hgb 13.6 Hct 41.3 MCV 92.1 MCH 30.3 MCHC 32.9 RDW 13.7 Plt Count 170 MPV 9.4 Neut % (Auto) 71.9 H Lymph % (Auto) 19.5 Pershing % (Auto) 7.2 Eos % (Auto) 1.0 Baso % (Auto) 0.4 Neut # (Auto) 7.3 Lymph # (Auto) 2.0 Pershing # (Auto) 0.7 Eos # (Auto) 0.1 Baso # (Auto) 0.0 WBC Differential . Differential Comment Auto diff final Sodium 143 Potassium 4.6 Chloride 102 Carbon Dioxide 36.9 H Anion Gap 4 L BUN 17 Creatinine 0.79 Estimated GFR Greater than 89 POC Glucose Random Glucose 149 H Calcium 8.8 Total Bilirubin 0.3 AST 24 ALT 37 Alkaline Phosphatase 66 Troponin I Less than 0.02 L B-Natriuretic Peptide 7 Total Protein 7.4 Albumin 3.9 03/09/18 03/09/18 03:27 09:32 WBC RBC Hgb Hct MCV MCH MCHC RDW Plt Count MPV Neut % (Auto) Lymph % (Auto) Pershing % (Auto) Eos % (Auto) Baso % (Auto) Neut # (Auto) Lymph # (Auto) Pershing # (Auto) Eos # (Auto) Baso # (Auto) WBC Differential Differential Comment Sodium Potassium Chloride Carbon Dioxide Anion Gap BUN Creatinine Estimated GFR POC Glucose 219 H 201 H Random Glucose Calcium Total Bilirubin AST ALT Alkaline Phosphatase Troponin I B-Natriuretic Peptide Total Protein Albumin - Imaging Impressions Chest X-Ray 03/08/18 20:53 CONCLUSION: Volume loss in the right hemithorax with opacities in the right upper and medial lower lung, similar to prior CT in December 2017. Assessment and Plan - Assessment (1) Acute exacerbation of chronic obstructive airways disease Code(s): J44.1 - Chronic obstructive pulmonary disease with (acute) exacerbation Status: Acute - Plan 72 y/o male with a history of COPD on 2L at home, HTN, HLD, DM presented to the ED with complaints of shortness of breath. Patient states while at home he had a desaturation of o2 into the 60s while on his 2L, and he states he could not catch his breath. Copd exacerbation on chronic COPD Chest x ray reviewed and unremarkable -DuoNeb and solumedrol IV ordered, taper, switch to p.o. prednisone when improved. -Oxygen as needed, titrate for 02< 88 -Patient may benefit from a home nebulizer -Resume home medication inhalers symbicort, add spiriva -Start PO Levaquin HTN, chronic, controlled -Resume home medications, monitor vitals Diabetes, chronic -Accu checks with SSI -Diabetic diet Afib, chronic, controlled -Resume home medication dig and Cardizem po -Monitor telemetry -Not on anticoags, [id number] score 3, recommend to start eliquis. Discuss with . Review of patient's medical records showed he was admitted to the hospital 09/29/15 for COPD exacerbation, respiratory failure. During that time patient was on Xarelto and was discharged home with Xarelto. Patient had another visit to the hospital 06/23/16, colonoscopy procedure, impression showed colon polyps, colitis of distal sigmoid and rectum. Biopsy pending during that time repeat colonoscopy recommended in 3 years. He had no bleeding episode on any notes during that time. Patient also had hospital visit were in he had a biopsy of left renal mass. Otherwise, there were no notes referring to GIB due to Xarelto. DVT prophylaxis: Heparin SQ Code Status: Full Code Discussed Condition With: Patient, nurse, Dr. Stovall Discharge Planning: Plan to DC home when clinically improved, possibly tomorrow, switch over to p.o. prednisone
[2018-03-09] MEDS: levoFLOXacin 750 MG Tablet PO SCH (16:32)
--- NOTE | 2018-03-09 19:23 | ECG ---
Date Performed: 03/08/2018 Time Performed: 21:03:52 PTAGE: 72 years EKG: Sinus rhythm MARKED LEFT AXIS DEVIATION MODERATE INTRAVENTRICULAR CONDUCTION DELAY ABNORMAL ECG PREVIOUS TRACING : 02/03/2017 09.44 Since the previous tracing, no significant change noted DOCTOR: Jamar Hennessy Interpretating Date/Time 03/09/2018 19:21:36
[2018-03-10] MEDS: Insulin NovoLIN Regular Correctional Sugar Inj SQ SCH ×3 (05:23→12:43)
[2018-03-10] MEDS: MethylPREDNISolone Sod Succinate Inj 40 MG/ML Vial IV.PUSH SCH ×2 (05:44)
[2018-03-10 08:08] VITALS: RESP 18
[2018-03-10] MEDS: Fenofibrate 145 MG Tablet PO SCH (08:39)
[2018-03-10] MEDS: amLODIPine 5 MG Tablet PO SCH (08:40)
[2018-03-10] MEDS: levoFLOXacin 750 MG Tablet PO SCH (08:40)
[2018-03-10] MEDS: Digoxin 125 MCG Tablet PO SCH (08:40)
[2018-03-10] MEDS: Senna/Docusate Sodium 8.6/50 MG Tablet PO SCH (08:41)
[2018-03-10] MEDS: dilTIAZem CD 240 MG Capsule PO SCH (08:41)
[2018-03-10] MEDS: Furosemide 40 MG Tablet PO SCH (08:41)
[2018-03-10] MEDS: Morphine Sulfate 15 MG SR Tablet PO SCH ×2 (08:42→14:55)
[2018-03-10] MEDS: Budesonide-Formoterol 160/4.5 MCG 6 GM Inhaler INH SCH (08:44)
--- NOTE | 2018-03-10 09:49 | P.DS ---
Date of admission: 03/09/18 14:50 Primary care physician: Parviz Covington MD Attending physician on discharge: Fadi Stovall Anticipated date of discharge: 03/10/18 Brief History from admission: 72 y/o male with a history of COPD on 2L at home, HTN, HLD, DM presented to the ED with complaints of shortness of breath. Patient states while at home he had a desaturation of o2 into the 60s while on his 2L, and he states he could not catch his breath. He denies any chest pain, cough, sputum production, fever or chills. He states he just feels fatigued. Prior to arrival EMS gave patient solumedrol IV and patient states he feels a little better. Patient is currently sating 85 on 3L, o2 was increased to 4L on examination. Patient denies any use of a nebulizer at home, but thinks he may like one. DS: Diagnosis - Discharge Diagnosis (1) Acute exacerbation of chronic obstructive airways disease Status: Acute DS: Medications - Discharge Medications Prescriptions: levofloxacin 750 mg PO DAILY #4 tab prednisone [Deltasone] 20 mg PO BID 5 Days #10 tab tiotropium bromide [Spiriva with HandiHaler] 18 mcg INH DAILY #1 inh DS: Summary Hospital Course: 72 y/o male with a history of COPD on 2L at home, HTN, HLD, DM presented to the ED with complaints of shortness of breath. Patient states while at home he had a desaturation of o2 into the 60s while on his 2L, and he states he could not catch his breath. Patient is O2 dependent. Had COPD exacerbation. Chest x- ray showed a remote he was given duo nebs and Solu-Medrol IV which is now being tapered off. He will take p.o. prednisone at home for several days. Continue with oxygen at home. Continue with nebulization at home. He was started also on p.o. Levaquin. Patient got tiotropium, Symbicort and he will continue this at home. Recommend to follow-up with his brick shader Dr. Lopez. Patient has hypertension and diabetes which was managed during his hospitalization. He has chronic atrial fibrillation were and he continued to take his digoxin and Cardizem p.o. He is not on any anticoagulant but his [id number] score 3, recommend to start eliquis. Discuss with . Review of patient's medical records showed he was admitted to the hospital 09/29/15 for COPD exacerbation, respiratory failure. During that time patient was on Xarelto and was discharged home with Xarelto. Patient had another visit to the hospital 06/23/16 , colonoscopy procedure, impression showed colon polyps, colitis of distal sigmoid and rectum. Biopsy pending during that time repeat colonoscopy recommended in 3 years. He had no bleeding episode on any notes during that time. Patient also had hospital visit were in he had a biopsy of left renal mass. Otherwise, there were no notes referring to GIB due to Xarelto or hematuria secondary to Xarelto. However according to the patient they stopped the Xarelto because of hematuria. 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 Patient is significantly improved. Able to walk around to the bathroom without oxygen and has been tolerating it. Patient has met maximal benefits of hospitalization. Clinically stable for discharge. - Time Spent with Patient Total time spent providing and/or coordinating discharge services: Less than 30 minutes - Quality: VTE Deep Vein Thrombosis/Pulmonary Embolism Present on Admission: No Exam Vital signs: Vital Signs 03/09/18 11:24 03/09/18 15:21 03/09/18 16:07 Temperature 97.8 F 97.7 F Pulse Rate 97 H 87 81 Respiratory Rate 16 17 20 Blood Pressure 156/81 H 126/65 Pulse Oximetry 93 L 93 L 03/09/18 16:19 03/09/18 20:00 03/09/18 20:07 Temperature 98.4 F Pulse Rate 88 89 Respiratory Rate 20 16 16 Blood Pressure 137/66 Pulse Oximetry 91 L 03/09/18 20:08 03/09/18 23:35 03/10/18 00:00 Temperature 98.1 F Pulse Rate 87 88 Respiratory Rate 16 16 Blood Pressure 108/67 Pulse Oximetry 93 L 90 L 03/10/18 03:57 03/10/18 04:00 03/10/18 08:04 Temperature 97.8 F Pulse Rate 85 91 H 87 Respiratory Rate 16 16 18 Blood Pressure 130/73 Pulse Oximetry 90 L 96 Intake & Output 03/09/18 03/10/18 03/10/18 18:59 06:59 18:59 Intake Total 2640 / 2640 420 / 420 Output Total 500 / 500 Balance 2140 / 2140 420 / 420 Intake: Oral 2640 / 2640 420 / 420 Output: Urine 500 / 500 Urine/Stool Mix 0 / 0 Other: # Voids 8 3 Narrative: GENERAL: This is a well-nourished, well-developed patient, in no apparent distress. SKIN: Warm and dry HEENT: Normocephalic. Pupils equal round and reactive. Nose without bleeding. Airway patent. NECK: Trachea midline. CARDIOVASCULAR: Regular rate and rhythm without murmurs, gallops, or rubs. RESPIRATORY: Diminished BS. Moderate Air entry No wheezes, rales, or rhonchi. GASTROINTESTINAL: Abdomen soft, non-tender, nondistended. Bowel Sounds normoactive x4. MUSCULOSKELETAL: Extremities without clubbing, cyanosis, or edema. NEUROLOGICAL: Awake and alert. Oriented to place, person. No focal neuro deficit. Moves all extremities. Normal speech. Results Procedures completed during hospitalization: None Labs on day of discharge: Labs from last 24 hours 03/10/18 03/10/18 03/09/18 08:36 05:20 16:24 POC Glucose 209 H 193 H 302 H 03/09/18 13:39 POC Glucose 188 H - Impressions ITS Impressions Chest X-Ray 03/08/18 20:53 CONCLUSION: Volume loss in the right hemithorax with opacities in the right upper and medial lower lung, similar to prior CT in December 2017. Discharge Plan - Discharge Disposition Patient Disposition: 01 Discharge Home - Discharge Condition Condition: Stable - Discharge Order Discharge Orders: Discharge Order (Routine); Ordered 03/10/18 Ordered By: Tez Solis - Physicians Team Primary Care Provider: Parviz Covington Attending Provider: Fadi Stovall
[2018-03-10] MEDS ORDERED: Tiotropium Bromide 18 MCG/ACT Inhaler INH SCH (11:00)
[2018-03-10] MEDS: Heparin - SQ 10,000 UNITS/ML Vial SQ SCH ×2 (12:43)
[2018-03-10] MEDS ORDERED: MethylPREDNISolone Sod Succinate Inj 40 MG/ML Vial IV.PUSH SCH (14:00)
[2018-03-10] MEDS ORDERED: predniSONE 20 MG Tablet PO ONE (15:16)
[2018-03-10 16:20] VITALS: BP 130/69; PULSE 105; TEMP 97.4; O2SAT 90
== END 2018-03-10 18:27 | disposition home or self-care (01) ==
LOC: NEPC 20:31 → NEDA 20:31 → NEPGCP 03-09 00:48
PROVIDERS: ADMIT Internal Medicine; ATTEND Internal Medicine
DX: E78.5 Hyperlipidemia, unspecified; Z99.81 Dependence on supplemental oxygen; I10 Essential (primary) hypertension; E11.9 Type 2 diabetes mellitus without complications; Z79.899 Other long term (current) drug therapy; J44.1 Chronic obstructive pulmonary disease with (acute) exacerbation; Z79.82 Long term (current) use of aspirin; Z79.51 Long term (current) use of inhaled steroids; Z79.4 Long term (current) use of insulin; I48.2 Chronic atrial fibrillation

== ENCOUNTER 2018-03-16 23:45 | Inpatient (IN) ==
[2018-03-16] MEDS ORDERED: Sod Chloride 0.9% Inj 1,000 ML IV.SIG ONE (23:57)
[2018-03-17 00:23] LABS: Baso % (Auto) 0.1 % (0.0-2.0); Eos # (Auto) 0.3 th/mm3 (0.0-0.4); Eos % (Auto) 1.9 % (0.0-4.0); Hematocrit 44.5 % (39.0-51.0); Hemoglobin 14.4 gm/dL (13.0-17.0); Lymph # (Auto) 2.3 th/mm3 (1.0-4.8); Lymph % (Auto) 14.4 % (9.0-44.0); Mean Corpuscular HGB Conc 32.3 % (32.0-36.0); Mean Corpuscular Hemoglobin 30.1 pg (27.0-34.0); Mean Corpuscular Volume 93.1 fL (80.0-100.0); Mean Platelet Volume 9.2 fL (7.0-11.0); Mono # (Auto) 0.8 th/mm3 (0.0-0.9); Mono % (Auto) 5.3 % (0.0-8.0); Neut # (Auto) 12.6 th/mm3 (1.8-7.7); Neut % (Auto) 78.3 % (16.0-70.0); Platelet Count 158 th/mm3 (150-450); Red Blood Count 4.77 mil/mm3 (4.50-5.90); Red Cell Distribution Width 14.2 % (11.6-17.2); White Blood Count 16.1 th/mm3 (4.0-11.0)
--- NOTE | 2018-03-17 00:29 | XR ---
EXAM DATE: 03/17/2018 12:23 AM EDT AGE/SEX: 72 years / Male INDICATIONS: Short of breath. CLINICAL DATA: This is the patient's initial encounter. Patient reports that signs and symptoms have been present for 1 day and indicates a pain score of Nonresponsive. MEDICAL/SURGICAL HISTORY: None. None. COMPARISON: [facility] – [place], CHEST 1V SINGLE AP, 03/08/2018. . FINDINGS: Stable linear parenchymal opacity in the right upper lobe. More prominent linear parenchymal opacity in the right lower lung zone with persistent mild volume loss. Patchy airspace disease in the left lo wer lung zone new since prior exam. Cardiomegaly mediastinal contours are within normal limits. Remai nder of the exam is unchanged. CONCLUSION: 1. New patchy left lower lobe airspace disease concerning for pneumonia or aspiration in the appropr iate clinical setting. 2. More prominent scarring/atelectasis and volume loss in the right lower lung zone. 3. Stable right upper lung zone scarring. Electronically signed by: Pino Nuñez MD 03/17/2018 12:28 AM EDT
[2018-03-17 00:34] LABS: Activated Partial Thrombo Time 20.5 sec (24.3-30.1); INR 0.9 Ratio; Prothrombin Time 9.4 sec (9.8-11.6)
--- NOTE | 2018-03-17 00:34 | ED ---
HPI General Chief complaint: Respiratory Symptoms Stated complaint: resp problems Time Seen by Provider: 03/16/18 23:55 Source: patient and EMS Mode of arrival: EMS History of Present Illness HPI narrative: 72-year-old male presents with 1 hour history of shortness of breath. He denies any other concurrent complaints currently. History is limited given clinical acuity. Initial room air sats were 60 Onset (ago): hour(s) Location: chest Severity: similar to prior episodes Treatments prior to arrival: other (Solu-Medrol and 2 breathing treatments) Related Data Home Medications Medication Instructions Recorded Confirmed albuterol sulfate 0.63 mg INHALATION Q4-6H PRN 03/08/18 03/16/18 albuterol sulfate [Ventolin HFA] 2 puff INHALATION Q4-6H PRN 03/08/18 03/16/18 amlodipine 5 mg PO DAILY 03/08/18 03/16/18 aspirin 81 mg PO DAILY 03/08/18 03/16/18 atorvastatin [Lipitor] 40 mg PO DAILY 03/08/18 03/16/18 canagliflozin [Invokana] 300 mg PO DAILY 03/08/18 03/16/18 diazepam [Valium] 10 mg PO BID PRN 03/08/18 03/16/18 digoxin 0.125 mg PO DAILY 03/08/18 03/16/18 diltiazem HCl 240 mg PO DAILY 03/08/18 03/16/18 fenofibrate 160 mg PO DAILY 03/08/18 03/16/18 fluticasone-salmeterol [Advair 2 INHALATION DAILY 03/08/18 Diskus] furosemide 40 mg PO DAILY 03/08/18 03/16/18 glipizide 10 mg PO DAILY 03/08/18 03/16/18 insulin glargine [Basaglar KwikPen 60 unit SUB-Q DAILY 03/08/18 03/16/18 U-100 Insulin] ipratropium bromide 1 puff INHALATION Q6H 03/08/18 03/16/18 metformin 1,000 mg PO BID 03/08/18 03/16/18 morphine 15 mg PO Q8H 03/08/18 03/16/18 oxycodone-acetaminophen [Percocet] 1 tab PO Q8H PRN 03/08/18 03/16/18 ramipril 20 mg PO DAILY 03/08/18 03/16/18 Previous Rx's Medication Instructions Recorded levofloxacin 750 mg PO DAILY #4 tab 03/10/18 tiotropium bromide [Spiriva with 18 mcg INH DAILY #1 inh 03/10/18 HandiHaler] Allergies Allergy/AdvReac Type Severity Reaction Status Date / Time No Known Allergies Allergy Unverified 03/08/18 20:43 Review of Systems ROS Unobtainable other (Clinical acuity) [facility] Medical History Medical History Afib (Acute) Anxiety (Acute) Chronic pain (Acute) Diabetes (Acute) End stage COPD (Acute) Hypertension (Acute) Surgical History Surgical History No history of previous surgery (Acute) Social History Social History Substance History: No History of Abuse, Active Abuse and Past History Second Hand Smoke Exposure: No Smoking Status: Never smoker How Often Do You Have a Drink Containing Alcohol: Never Recent Travel in [facility] within the Last 8 Weeks: No Recent Out of Country Travel within the Last 8 Weeks: No Immunization History Tetanus Immunization: Unsure Exam Narrative Exam Narrative: GENERAL: 72 y/o male who appears short of breath SKIN: Focused skin assessment warm/dry. HEAD: Atraumatic. Normocephalic. EYES: Pupils equal and round. No scleral icterus. No injection or drainage. ENT: No nasal bleeding or discharge. Mucous membranes pink and moist. NECK: Trachea midline. CARDIOVASCULAR: Regular rate and rhythm. No murmur appreciated. RESPIRATORY: Decreased breath sounds bilaterally. Tachypnea noted GASTROINTESTINAL: Abdomen soft,nondistended. MUSCULOSKELETAL: No obvious deformities. No clubbing. No cyanosis. NEUROLOGICAL: Awake, No obvious cranial nerve deficits. Normal speech. Procedures Intubation Additional Comments: After the risks and benefits were discussed the following procedure was performed: INTUBATION: The patient was put in optimal position for the procedure. Rapid sequence intubation was initiated by me using 20 milligrams of etomidate IV and 100 milligrams of succinylcholine IV. The patient was intubated with a 8-0 cuffed endotracheal tube. Tube placement was confirmed by visualization of the tube and balloon passing through the cords, capnometry and subsequent chest x-ray. Breath sounds were equal and well aerated bilaterally postintubation. No breath sounds over stomach. Patient tolerated procedure well. Course Reevaluation(s) Reevaluation #1: improving some with bipap will closely monitor, family updated Reevaluation #2: after reviewing abg and chest xray, patient and family agree to intubation and icu admit, given fluids and antibiotics Consultations Consultation #1: dr dietz agrees to admit Initial Documented Vital Signs Pulse Rate 116 H 03/16/18 23:51 Respiratory Rate 30 H 03/16/18 23:51 Blood Pressure 202/97 H 03/16/18 23:51 Pulse Oximetry 83 L 03/16/18 23:51 Last Documented Vital Signs Temperature 100.0 F H 03/17/18 00:10 Pulse Rate 110 H 03/17/18 01:15 Respiratory Rate 28 H 03/17/18 01:15 Blood Pressure 173/79 H 03/17/18 01:15 Pulse Oximetry 92 L 03/17/18 01:15 Critical Care Time Critical Care Time: Yes Total Critical Care Time: 35 Attestation: Aggregate critical care time was 55 minutes. Time to perform other separately billable procedures was not included in the critical care time. My time did not include minutes spent treating any other patients simultaneously or on activities that did not directly contribute to the patient's treatment. The services I provided to this patient were to treat and/or prevent clinically significant deterioration that could result in: Respiratory failure, I provided critical care services requiring my management, as noted below: Chart data review, documentation time, medication orders and management, vital sign assessments/reviewing monitor data, ordering and reviewing lab tests, ordering and interpreting/reviewing x-rays and diagnostic studies, care of the patient and discussion of the patient with the admitting physicians. Medical Decision Making MDM Narrative Medical decision making narrative: Patient with saturation in the 80s on 10 L. Placed on BiPAP and will check blood work and imaging and closely monitor. Repeat DuoNeb. Differential Diagnosis Differential Diagnosis: COPD, pneumonia, pneumothorax, anemia, renal failure Lab Data Lab results reviewed: Yes I reviewed the patient's lab results. Result diagrams: 03/17/18 00:00 03/17/18 00:00 Lab Results 03/17/18 03/17/18 03/17/18 Range/Units 00:00 00:00 00:00 WBC 16.1 H (4.0-11.0) th/mm3 RBC 4.77 (4.50-5.90) mil/mm3 Hgb 14.4 (13.0-17.0) gm/dL Hct 44.5 (39.0-51.0) % MCV 93.1 (80.0-100.0) fL MCH 30.1 (27.0-34.0) pg MCHC 32.3 (32.0-36.0) % RDW 14.2 (11.6-17.2) % Plt Count 158 (150-450) th/mm3 MPV 9.2 (7.0-11.0) fL Neut % (Auto) 78.3 H (16.0-70.0) % Lymph % (Auto) 14.4 (9.0-44.0) % Rawlins % (Auto) 5.3 (0.0-8.0) % Eos % (Auto) 1.9 (0.0-4.0) % Baso % (Auto) 0.1 (0.0-2.0) % Neut # (Auto) 12.6 H (1.8-7.7) th/mm3 Lymph # (Auto) 2.3 (1.0-4.8) th/mm3 Rawlins # (Auto) 0.8 (0.0-0.9) th/mm3 Eos # (Auto) 0.3 (0.0-0.4) th/mm3 Baso # (Auto) 0.0 (0.0-0.2) th/mm3 WBC Differential . Differential Comment Auto diff final PT 9.4 L (9.8-11.6) sec INR 0.9 Ratio APTT 20.5 L (24.3-30.1) sec Sodium 143 (136-145) meq/L Potassium 3.8 (3.5-5.1) meq/L Chloride 96 L (98-107) meq/L Carbon Dioxide 39.8 H (21.0-32.0) meq/L Anion Gap 7 (5-15) meq/L BUN 17 (7-18) mg/dL Creatinine 0.79 (0.60-1.30) mg/dL Estimated GFR Greater than 89 (>89) mL/min Random Glucose 176 H (74-106) mg/dL Lactic Acid (0.4-2.0) mmol/L Calcium 9.0 (8.5-10.1) mg/dL Phosphorus 4.8 (2.5-4.9) mg/dL Magnesium 2.1 (1.5-2.5) mg/dL Total Bilirubin 0.2 (0.2-1.0) mg/dL AST 16 (15-37) U/L ALT 40 (12-78) U/L Alkaline Phosphatase 65 (45-117) U/L Total Creatine Kinase 58 (39-308) U/L Troponin I Less than 0.02 L (0.02-0.05) ng/mL Total Protein 7.4 (6.4-8.2) g/dL Albumin 3.8 (3.4-5.0) g/dL 03/17/18 Range/Units 00:00 WBC (4.0-11.0) th/mm3 RBC (4.50-5.90) mil/mm3 Hgb (13.0-17.0) gm/dL Hct (39.0-51.0) % MCV (80.0-100.0) fL MCH (27.0-34.0) pg MCHC (32.0-36.0) % RDW (11.6-17.2) % Plt Count (150-450) th/mm3 MPV (7.0-11.0) fL Neut % (Auto) (16.0-70.0) % Lymph % (Auto) (9.0-44.0) % Rawlins % (Auto) (0.0-8.0) % Eos % (Auto) (0.0-4.0) % Baso % (Auto) (0.0-2.0) % Neut # (Auto) (1.8-7.7) th/mm3 Lymph # (Auto) (1.0-4.8) th/mm3 Rawlins # (Auto) (0.0-0.9) th/mm3 Eos # (Auto) (0.0-0.4) th/mm3 Baso # (Auto) (0.0-0.2) th/mm3 WBC Differential Differential Comment PT (9.8-11.6) sec INR Ratio APTT (24.3-30.1) sec Sodium (136-145) meq/L Potassium (3.5-5.1) meq/L Chloride (98-107) meq/L Carbon Dioxide (21.0-32.0) meq/L Anion Gap (5-15) meq/L BUN (7-18) mg/dL Creatinine (0.60-1.30) mg/dL Estimated GFR (>89) mL/min Random Glucose (74-106) mg/dL Lactic Acid 2.4 H (0.4-2.0) mmol/L Calcium (8.5-10.1) mg/dL Phosphorus (2.5-4.9) mg/dL Magnesium (1.5-2.5) mg/dL Total Bilirubin (0.2-1.0) mg/dL AST (15-37) U/L ALT (12-78) U/L Alkaline Phosphatase (45-117) U/L Total Creatine Kinase (39-308) U/L Troponin I (0.02-0.05) ng/mL Total Protein (6.4-8.2) g/dL Albumin (3.4-5.0) g/dL Imaging Data Attestation: I personally reviewed and interpreted this imaging study as follows : Radiologist's impression: Chest X-Ray 03/16/18 23:55 CONCLUSION: Discharge Plan Discharge Disposition Patient Disposition: 30 Still Patient Discharge Condition Condition: Critical Discharge Details Diagnosis: Respiratory failure, Acute exacerbation of chronic obstructive airways disease , Pneumonia Physicians Team ED Provider: Catherine Griffin Primary Care Provider: Parviz Covington Attending Provider: Frantz Dietz Interventions Interventions: Vital Signs Last Done: 03/17/18 01:15 Status ED Status: Admitted Patient
[2018-03-17 00:35] LABS: Albumin 3.8 g/dL (3.4-5.0); Anion Gap 7 meq/L (5-15); Aspartate Aminotransferase 16 U/L (15-37); Blood Urea Nitrogen 17 mg/dL (7-18); Carbon Dioxide 39.8 meq/L (21.0-32.0); Chloride 96 meq/L (98-107); Glomerular Filtration Rate Greater Than 89 mL/min (>89); Glucose,Random 176 mg/dL (74-106); Magnesium 2.1 mg/dL (1.5-2.5); Potassium 3.8 meq/L (3.5-5.1); Sodium 143 meq/L (136-145)
[2018-03-17 00:36] LABS: Alanine Aminotransferase 40 U/L (12-78); Phosphorus 4.8 mg/dL (2.5-4.9)
[2018-03-17 00:40] LABS: Alkaline Phosphatase 65 U/L (45-117); Total Protein 7.4 g/dL (6.4-8.2)
[2018-03-17 00:44] LABS: Creatine Kinase 58 U/L (39-308)
[2018-03-17] MEDS ORDERED: Azithromycin Inj 500 MG in Sodium Chlor 0.9% Inj 250 ML IV.SIG STA (01:19)
[2018-03-17] MEDS ORDERED: Piperacil/Tazo 4.5 GM Premix 4.5 GM/100 ML BAG IV.SIG STA (01:19)
[2018-03-17] MEDS ORDERED: Sod Chloride 0.9% Inj 1,000 ML IV.SIG ONE ×2 (01:22→01:46)
[2018-03-17] MEDS ORDERED: Succinylcholine Inj 100 MG/5 ML Syringe IV.PUSH ONE (01:27)
[2018-03-17] MEDS ORDERED: Etomidate Inj 40 MG/20 ML Vial IV.PUSH ONE (01:27)
[2018-03-17] MEDS ORDERED: Bisacodyl 10 MG Supp RECTAL PRN (01:37)
[2018-03-17] MEDS: Propofol 1000 mg/100 ml Inj 1,000 MG/100 ML BOTTLE IV.CONT PRN ×2 (01:50→05:13)
--- NOTE | 2018-03-17 01:51 | P.HPCC ---
History of Present Illness Primary Care Physician: Parviz Covington MD History of Present Illness: 72-year-old male with history of severe COPD presents with 1 hour history of shortness of breath. He denied any other concurrent complaints . History is limited given clinical acuity. Initial room air sats were 60 and the patient was intubated by ED attending for respiratory failure. Inpatient Certification: I certify that the inpatient services were ordered in accordance with Medicare regulations governing the order. 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 - Medical History Medical History: Medical History (Last Reviewed 03/17/18 @ 07:32 by Patricai Mullen) Afib Anxiety Chronic pain Diabetes End stage COPD Hypertension - Surgical History Surgical History: Surgical History (Last Reviewed 03/17/18 @ 07:32 by Patricia Mullen) No history of previous surgery - Tobacco History Second Hand Smoke Exposure: No Smoking Status: Never smoker - Alcohol History How Often Do You Have a Drink Containing Alcohol: Never - Substance Use History Substance History: No History of Abuse, Active Abuse, Past History - Travel History Recent Travel in the [place] Within the Last 8 Weeks: No Recent Travel Out of the Country Within the Last 8 Weeks: No - Immunization History Tetanus Immunization: Unsure Medications and Allergies Active Medications: Active Medications Acetaminophen (Tylenol) 650 mg PO Q6H PRN PRN Reason: PAIN 1-10 AND/OR FEVER >101F Al Hydroxide/Mg Hydroxide (Milk Of Magniglesia Liq) 30 ml PO Q12H PRN PRN Reason: Mild Constipation Albuterol (Duoneb Neb (Prn)) 1 ampul NEB Q4HR NEB TEVIN Albuterol (Duoneb Neb (Prn)) 1 ampul NEB Q2HR NEB PRN PRN Reason: WHEEZING Bisacodyl (Dulcolax Supp) 10 mg RECTAL DAILY PRN PRN Reason: SEVERE CONSITIPATION Chlorhexidine Gluconate (Peridex 0.12% Oral Kit) 15 ml OROPHARYNG BID@0800, 2000 [facility] Chlorhexidine Gluconate (Chlorhexidine 2% Cloth) 3 pack TOPICAL DAILY@0400 PRN PRN Reason: Extra cloth needed Stop: 03/22/18 03:59 Chlorhexidine Gluconate (Chlorhexidine 2% Cloth) 3 pack TOPICAL DAILY@0400 TEVIN Stop: 03/22/18 03:59 Famotidine (Pepcid Pf Inj) 20 mg IV.PUSH Q12HR [facility] Heparin Sodium (Porcine) (Heparin Inj) 5,000 units SQ Q8H [facility] Azithromycin 500 mg/ Sodium (Chloride) 250 mls @ 250 mls/hr IV.SIG STAT STA Stop: 03/17/18 02:18 Propofol (Diprivan 1000 Mg/100 Ml Inj) 1,000 mg in 100 mls @ 3.814 mls/hr IV.CONT TITRATE PRN; Protocol PRN Reason: Per Protocol Sodium Chloride (Ns Inj) 1,000 mls @ 84 mls/hr IV.CONT .[id number] [facility] Piperacillin/Tazobactam/Dextrose (Zosyn 4.5 Gm Premix) 4.5 gm in 100 mls @ 200 mls/hr IV.SIG Q6H [facility] Pharmacy Profile Note (Vancomycin Consult Pharmacy) 0 mls @ 0 mls/hr OTHER UNSCH [facility] Lactulose (Lactulose Liq) 30 ml PO DAILY PRN PRN Reason: SEVERE CONSITIPATION Midazolam HCl (Versed Inj) 2 mg IV.PUSH Q1H PRN PRN Reason: SEDATION Morphine Sulfate (Morphine Inj) 2 mg IV.PUSH Q2H PRN PRN Reason: PAIN SCALE 6 TO 10 Ondansetron HCl (Zofran Inj) 4 mg IV.PUSH Q6H PRN PRN Reason: NAUSEA OR VOMITING Senna/Docusate Sodium (Hoda-Colace) 1 tab PO BID [facility] Sennosides (Senokot) 17.2 mg PO Q12H PRN PRN Reason: Moderate Constipation Sodium Chloride (Ns Flush) 2 ml IV.FLUSH PRN PRN PRN Reason: FLUSH AFTER USING IV ACCESS Sodium Chloride (Ns Flush) 2 ml IV.FLUSH BID [facility] Sodium Chloride (Ns Flush) 2 ml IV.FLUSH PRN PRN PRN Reason: FLUSH AFTER USING IV ACCESS Allergies Allergy/AdvReac Type Severity Reaction Status Date / Time No Known Allergies Allergy Unverified 03/08/18 20:43 Home Medications Medication Instructions Recorded Confirmed Type albuterol sulfate 0.63 mg INHALATION Q4-6H PRN 03/08/18 03/16/18 History albuterol sulfate [Ventolin HFA] 2 puff INHALATION Q4-6H PRN 03/08/18 03/16/18 History amlodipine 5 mg PO DAILY 03/08/18 03/16/18 History aspirin 81 mg PO DAILY 03/08/18 03/16/18 History atorvastatin [Lipitor] 40 mg PO DAILY 03/08/18 03/16/18 History canagliflozin [Invokana] 300 mg PO DAILY 03/08/18 03/16/18 History diazepam [Valium] 10 mg PO BID PRN 03/08/18 03/16/18 History digoxin 0.125 mg PO DAILY 03/08/18 03/16/18 History diltiazem HCl 240 mg PO DAILY 03/08/18 03/16/18 History fenofibrate 160 mg PO DAILY 03/08/18 03/16/18 History fluticasone-salmeterol [Advair 2 INHALATION DAILY 03/08/18 History Diskus] furosemide 40 mg PO DAILY 03/08/18 03/16/18 History glipizide 10 mg PO DAILY 03/08/18 03/16/18 History insulin glargine [Basaglar KwikPen 60 unit SUB-Q DAILY 03/08/18 03/16/18 History U-100 Insulin] ipratropium bromide 1 puff INHALATION Q6H 03/08/18 03/16/18 History metformin 1,000 mg PO BID 03/08/18 03/16/18 History morphine 15 mg PO Q8H 03/08/18 03/16/18 History oxycodone-acetaminophen [Percocet] 1 tab PO Q8H PRN 03/08/18 03/16/18 History ramipril 20 mg PO DAILY 03/08/18 03/16/18 History Results - Labs CBC & Chem 7: 03/17/18 00:00 03/17/18 00:00 Labs: Short CBC 03/17/18 Range/Units 00:00 WBC 16.1 H (4.0-11.0) th/mm3 Hgb 14.4 (13.0-17.0) gm/dL Hct 44.5 (39.0-51.0) % Plt Count 158 (150-450) th/mm3 BMP 03/17/18 00:00 Sodium 143 Potassium 3.8 Chloride 96 L Carbon Dioxide 39.8 H BUN 17 Creatinine 0.79 Calcium 9.0 Cardiac Enzymes 03/17/18 Range/Units 00:00 Total Creatine Kinase 58 (39-308) U/L Troponin I Less than 0.02 L (0.02-0.05) ng/mL Liver Function 03/17/18 Range/Units 00:00 Total Bilirubin 0.2 (0.2-1.0) mg/dL AST 16 (15-37) U/L ALT 40 (12-78) U/L Alkaline Phosphatase 65 (45-117) U/L Albumin 3.8 (3.4-5.0) g/dL - Imaging Impressions Chest X-Ray 03/16/18 23:55 CONCLUSION: Exam Vital signs: Vital Signs 03/16/18 23:51 03/16/18 23:58 03/17/18 00:00 Temperature Pulse Rate 116 H 114 H Respiratory Rate 30 H Blood Pressure 202/97 H Pulse Oximetry 83 L 93 L 03/17/18 00:01 03/17/18 00:05 03/17/18 00:10 Temperature 100.0 F H Pulse Rate 116 H Respiratory Rate 16 Blood Pressure Pulse Oximetry 93 L 03/17/18 01:15 Temperature Pulse Rate 110 H Respiratory Rate 28 H Blood Pressure 173/79 H Pulse Oximetry 92 L Intake & Output 03/16/18 03/16/18 03/17/18 06:59 18:59 06:59 Weight 127.139 kg - Constitutional mild distress - Routine HEENT Exam Head: Present: normocephalic, atraumatic Eye: Present: PERRL ENT: Present: mucous membranes moist - Routine Neck Exam Present: supple. Absent: JVD, carotid bruit - Routine Respiratory Exam Present: accessory muscle use, patient mechanically ventilated, rhonchi, wheezes. Absent: stridor, crackles - Routine Cardiovascular Exam Present: RRR, S1, S2 - Routine Abdominal Exam Present: soft, normoactive bowel sounds. Absent: tenderness, distended - Routine Extremities Exam Absent: cyanosis, clubbing, edema - Routine Skin Exam Present: intact. Absent: cyanosis - Routine Neurological Exam Present: moving all extremities Caprini VTE Risk Assessment Caprini VTE Risk Assessment: Moderate/High Risk (score >= 2) Caprini Risk Assessment Model: Point Value = 1 Point Value = 2 Point Value = 3 Point Value = 5 Age 41-60 Minor surgery BMI > 25 kg/m2 Swollen legs Varicose veins or History of unexplained or recurrent spontaneous Oral contraceptives or hormone replacement Sepsis (< 1 month) Serious lung disease, including pneumonia (< 1 month) Abnormal pulmonary function Acute myocardial infarction Congestive heart failure (< 1 month) History of inflammatory bowel disease Medical patient at bed rest Age 61-74 Arthroscopic surgery Major open surgery (> 45 min) Laparoscopic surgery (> 45 min) Malignancy Confined to bed (> 72 hours) Immobilizing plaster cast Central venous access Age >= 75 History of VTE Family history of VTE Factor V Leiden Prothrombin [id number] Lupus anticoagulant Anticardiolipin antibodies Elevated serum homocysteine Heparin-induced thrombocytopenia Other congenital or acquired thrombophilia Stroke (< 1 month) Elective arthroplasty Hip, pelvis, or leg fracture Acute spinal cord injury (< 1 month) Prophylaxis Regimen: Total Risk Factor Score Risk Level Prophylaxis Regimen 0-1 Low Early ambulation 2 Moderate Order ONE of the following: *Sequential Compression Device (SCD) *Heparin 5000 units SQ BID 3-4 Higher Order ONE of the following medications: *Heparin 5000 units SQ TID *Enoxaparin/Lovenox 40 mg SQ daily (WT < 150 kg, CrCl > 30 mL/min) *Enoxaparin/Lovenox 30 mg SQ daily (WT < 150 kg, CrCl > 10-29 mL/min) *Enoxaparin/Lovenox 30 mg SQ BID (WT < 150 kg, CrCl > 30 mL/min) AND/OR *Sequential Compression Device (SCD) 5 or more Highest Order ONE of the following medications: *Heparin 5000 units SQ TID (Preferred with Epidurals) *Enoxaparin/Lovenox 40 mg SQ daily (WT < 150 kg, CrCl > 30 mL/min) *Enoxaparin/Lovenox 30 mg SQ daily (WT < 150 kg, CrCl > 10-29 mL/min) *Enoxaparin/Lovenox 30 mg SQ BID (WT < 150 kg, CrCl > 30 mL/min) AND *Sequential Compression Device (SCD) Assessment and Plan - Assessment and Plan Plan: Respiratory failure -COPD exacerbation -Community-acquired pneumonia -Empiric broad-spectrum antibiotics -Vent bundle -DuoNeb scheduled and as needed -IV steroid -SBTs and attempt to extubate daily Afib -Continue digoxin -Hold Cardizem due to borderline blood pressure Anxiety -Diazepam as needed when extubated Chronic pain -Resume morphine MS when extubated Diabetes -Insulin sliding scale -Hold Levemir while n.p.o., resume when tube feeds at the goal -Hold p.o. meds Hypertension -Continue ramipril DVT GI prophylaxis -Teds SCDs -Subcu heparin -Pepcid Critical Care: The total critical care time was 35 minutes. Time to perform other separately billable procedures was not included in the critical care time.
[2018-03-17] MEDS ORDERED: Vancomycin Consult Pharmacy 1 EACH OTHER SCH (02:00)
[2018-03-17 02:49] LABS: Bilirubin,Urine Negative (Negative); Clarity,Urine Clear (Clear); Color,Urine Yellow (Yellw/Straw); Glucose,Urine (UA) 500 or Greater mg/dL (Negative); Leukocyte Esterase,Urine Negative (Negative); Nitrite,Urine Negative (Negative); Specific Gravity,Urine 1.027 (1.002-1.035); Squamous Epithelial Cell,Urine <1 /hpf (0-5)
[2018-03-17] MEDS ORDERED: Vancomycin Inj 2,500 MG in Sodium Chlor 0.9% Inj 500 ML IV.SIG ONE (03:00)
--- NOTE | 2018-03-17 03:01 | XR ---
EXAM DATE: 03/17/2018 2:55 AM EDT AGE/SEX: 72 years / Male INDICATIONS: Post intubation. CLINICAL DATA: This is the patient's subsequent encounter. Patient reports that signs and symptoms h ave been present for 1 day and indicates a pain score of Nonresponsive. MEDICAL/SURGICAL HISTORY: None. None. COMPARISON: [facility] [place], CHEST 1V SINGLE AP, 03/17/2018. . FINDINGS: ETT is at the level of the clavicles. NGT courses beyond the GE junction with tip omitted from the im age. Progressive airspace disease in the lower lobes bilaterally with redemonstration of scarring in the right lung. Cardiomediastinal contours are stable. Remainder of the exam is unchanged. CONCLUSION: 1. ETT in good position. NGT beyond the GE junction. 2. Worsening left lower lobe airspace consolidation. 3. Right lower lobe airspace consolidation, likely atelectasis. 4. Right-sided parenchymal scarring. Electronically signed by: Pino Nuñez MD 03/17/2018 3:00 AM EDT
[2018-03-17 03:10] LABS: ABG Base Excess 11.7 mmol/L (-2-2); ABG PCO2 82 mmHg (38-42); ABG PO2 93 mmHg (61-120)
[2018-03-17] MEDS: Sod Chloride 0.9% Inj 1,000 ML IV.CONT SCH ×2 (03:12→14:37)
[2018-03-17] MEDS ORDERED: Chlorhexidine Gluconate 2% 1 Pack (2 Cloths) TOPICAL PRN (04:00)
[2018-03-17 04:39] LABS: ABG Base Excess 13.6 mmol/L (-2-2); ABG PCO2 90 mmHg (38-42); ABG PO2 72 mmHg (61-120)
[2018-03-17] MEDS: Chlorhexidine Gluconate 2% 1 Pack (2 Cloths) TOPICAL SCH (05:12)
[2018-03-17] MEDS: Oral Hygiene Kit OROPHARYNG SCH ×3 (05:12→18:30)
[2018-03-17] MEDS: Heparin - SQ 10,000 UNITS/ML Vial SQ SCH ×3 (05:13→22:01)
[2018-03-17] MEDS: Chlorhexidine 0.12% Oral Kit 15 ML UDC OROPHARYNG SCH ×2 (10:14→22:01)
[2018-03-17] MEDS: Senna/Docusate Sodium 8.6/50 MG Tablet PO SCH ×2 (10:15→22:01)
[2018-03-17] MEDS: Famotidine PF Inj 20 MG/2 ML Vial IV.PUSH SCH ×2 (10:15→22:01)
[2018-03-17] MEDS: Piperacil/Tazo 4.5 GM Premix 4.5 GM/100 ML BAG IV.SIG SCH ×3 (10:15→22:00)
--- NOTE | 2018-03-17 10:41 | P.PNCC ---
Subjective Subjective Remarks/Hospital Course: 72-year-old male with history of severe COPD presents with 1 hour history of shortness of breath. He denied any other concurrent complaints . History is limited given clinical acuity. Initial room air sats were 60 and the patient was intubated by ED attending for respiratory failure. 03/17 1000 hours: Patient is still requiring high levels of inspired oxygen. Review of the chest x-rays reveals considerable bullous replacement in the upper lobes with compression of the lower lobes by upper lobe expansion. The bibasilar infiltrates are probably a combination of pneumonia and atelectasis. This gentleman is improving particularly difficult to oxygenate and I suspect will require mechanical ventilation for at least 3-5 days. Objective Vital Signs / I&O: Vital Signs 03/16/18 23:51 03/16/18 23:58 03/17/18 00:00 Temperature Pulse Rate 116 H 114 H Respiratory Rate 30 H Blood Pressure 202/97 H Pulse Oximetry 83 L 93 L 03/17/18 00:01 03/17/18 00:05 03/17/18 00:10 Temperature 100.0 F H Pulse Rate 116 H Respiratory Rate 16 Blood Pressure Pulse Oximetry 93 L 03/17/18 01:15 03/17/18 02:02 03/17/18 02:17 Temperature Pulse Rate 110 H 104 H 103 H Respiratory Rate 28 H 16 16 Blood Pressure 173/79 H 135/61 114/55 L Pulse Oximetry 92 L 93 L 03/17/18 02:52 03/17/18 03:07 03/17/18 03:14 Temperature Pulse Rate 94 H 91 H 90 Respiratory Rate 16 16 16 Blood Pressure 92/50 L 93/53 L 106/56 L Pulse Oximetry 93 L 95 03/17/18 03:17 03/17/18 03:40 03/17/18 03:55 Temperature Pulse Rate Respiratory Rate 16 19 Blood Pressure Pulse Oximetry 92 L 92 L 95 03/17/18 04:00 03/17/18 04:03 03/17/18 04:08 Temperature Pulse Rate 88 86 Respiratory Rate 19 16 19 Blood Pressure 96/51 L Pulse Oximetry 95 03/17/18 08:38 Temperature Pulse Rate 86 Respiratory Rate 18 Blood Pressure Pulse Oximetry 98 Intake & Output 03/16/18 03/17/18 03/17/18 18:59 06:59 18:59 Intake Total 2450 / 2450 Output Total 1350 / 1350 Balance 1100 / 1100 Weight 127.139 kg Intake: IV 2450 / 2450 Diprivan 1000 mg/100 ml Inj 1, 100 / 100 000 mg In 100 ml @ 5 MCG/KG/MIN 3.814 mls/hr IV.CONT TITRATE PRN Rx#:[id number] Azithromycin Inj 500 MG In NS 250 / 250 Inj 250 ML @ 250 mls/hr IV.SIG STAT STA Rx#:[id number] Zosyn 4.5 GM Premix 4.5 gm In 100 / 100 100 ml @ 200 mls/hr IV.SIG STAT STA Rx#:[id number] NS Inj 1,000 ML @ Wide Open IV. 1999 SIG BOLUS ONE Rx#:[id number] Output: Urine Amount (Catheter) 1350 / 1350 Indwelling Urethral Catheter 1350 / 1350 Result Diagrams: 03/17/18 00:00 03/17/18 00:00 Objective Remarks: - Imaging Impressions Chest X-Ray 03/16/18 23:55 CONCLUSION: Hyperinflation upper lobe with bullous disease. Bibasilar atelectasis and consolidation consistent with pneumonia. Exam Vital signs: Vital Signs 03/16/18 23:51 03/16/18 23:58 03/17/18 00:00 Temperature Pulse Rate 116 H 114 H Respiratory Rate 30 H Blood Pressure 202/97 H Pulse Oximetry 83 L 93 L 03/17/18 00:01 03/17/18 00:05 03/17/18 00:10 Temperature 100.0 F H Pulse Rate 116 H Respiratory Rate 16 Blood Pressure Pulse Oximetry 93 L 03/17/18 01:15 Temperature Pulse Rate 110 H Respiratory Rate 28 H Blood Pressure 173/79 H Pulse Oximetry 92 L Intake & Output 03/16/18 03/16/18 03/17/18 06:59 18:59 06:59 Weight 127.139 kg - Constitutional Calm, sedated. - Routine HEENT Exam Head: Present: normocephalic, atraumatic Eye: Present: PERRL ENT: Present: mucous membranes moist - Routine Neck Exam Present: supple. Orally intubated. Absent: JVD, carotid bruit - Routine Respiratory Exam Present: Still mechanically ventilated, with diffuse rhonchi and light wheezes. Absent: stridor, crackles - Routine Cardiovascular Exam Present: RRR, S1, S2, neck veins are full - Routine Abdominal Exam Present: soft, normoactive bowel sounds. No guarding but mildly distended. Absent: tenderness, distended - Routine Extremities Exam Well-perfused. 12+ generalized edema lower extremities below the knee - Routine Skin Exam Present: intact. Absent: cyanosis - Routine Neurological Exam Present: moving all extremities spontaneously. His eyes to loud voice. Withdraws 4 limbs to stimulation as well. 3 spontaneously over ventilator. Assessment and Plan - Assessment and Plan Plan: Respiratory failure -COPD exacerbation -Community-acquired pneumonia -Peripheral edema, suspect heart failure. 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 I anticipate prolonged period of mechanical ventilation. Critical care 45 minutes
--- NOTE | 2018-03-17 12:12 | ECG ---
Date Performed: 03/17/2018 Time Performed: 00:22:30 PTAGE: 72 years EKG: SINUS TACHYCARDIA WITH FIRST DEGREE AV BLOCK LEFT ANTERIOR FASCICULAR BLOCK NONSPECIFIC ST & T-WAVE ABNORMALITY ABNORMAL ECG PREVIOUS TRACING : 03/08/2018 21.03 Since the previous tracing, no significant change noted DOCTOR: Oleg Martínez Interpretating Date/Time 03/17/2018 12:11:48
--- NOTE | 2018-03-17 12:12 | ECG ---
Date Performed: 03/17/2018 Time Performed: 06:12:30 PTAGE: 72 years EKG: Sinus rhythm . Leftward axis Borderline ECG PREVIOUS TRACING 03/17/18 00.22 Since the previous tracing, no significant change noted DOCTOR: Oleg Martínez Interpretating Date/Time 03/17/2018 12:11:29
--- NOTE | 2018-03-17 13:05 | P.DIET ---
Nutritional Evaluation Type of nutrition evaluation: initial Nutrition consult regarding: Tube Feeding Screening comments: Assessed per ASPEN and SCCM guidelines for critically ill pts with a BMI >30.0 Objective - Diagnosis Acute Respiratory Failure, Pneumonia - Objective % IBW: 166 (IBW = 166#) Body Weight Used for Calculations: IBW (75.5 kg used for protein needs), Actual (127 kg used for kcal needs) Energy Needs - Lower Range (kCal/kg): 11 Energy Needs - Upper Range (kCal/kg): 14 Lower Limit kCal/kg (kCals): 1,397 Upper Limit kCal/kg (kCals): 1,778 Lower Limit Protein Factor (Grams per Kg): 1.8 Upper Limit Protein Factor (Grams per Kg): 2.0 Lower Protein Needs (Protein): 136 Upper Protein Needs (Protein): 151 Dietitian Reviewed in Medical Record: Curent medications, Intake & Output, Labs , Medical history, Tube feeding Objective Comments: Glu 176 Assessment Assessment: Pt intubated/sedated and at high nutrition risk 2' to his need for TFing. Current order is for TwoCal HN @ 55 mls/hr goal. Recommend change to Vital High Protein @ 65 mls/hr to provide 1560 kcals, 137 gms protein and 1304 mls of free water. Some additional kcals will be provided by propofol (1.1 kcal/ml). Recommendations: Vital High Protein @ 65 mls/hr goal Dietitian to Monitor: Lab values, Intake & Output, Tube feeding tolerance, Weight change, Medical course
[2018-03-17] MEDS ORDERED: Dextrose 50% in Water 50 ML Vial IV.PUSH PRN (20:26)
[2018-03-18] MEDS: Insulin NovoLOG Aspart Correctional Sugar Inj SQ SCH ×4 (01:18→17:54)
[2018-03-18] MEDS: Oral Hygiene Kit OROPHARYNG SCH ×4 (01:19→15:36)
[2018-03-18] MEDS: Piperacil/Tazo 4.5 GM Premix 4.5 GM/100 ML BAG IV.SIG SCH ×4 (01:19→19:52)
[2018-03-18] MEDS: Azithromycin Inj 500 MG in Sodium Chlor 0.9% Inj 250 ML IV.SIG SCH (01:20)
[2018-03-18] MEDS: Propofol 1000 mg/100 ml Inj 1,000 MG/100 ML BOTTLE IV.CONT PRN ×8 (02:44→23:17)
[2018-03-18 03:58] LABS: Baso % (Auto) 0.1 % (0.0-2.0); Eos # (Auto) 0.1 th/mm3 (0.0-0.4); Eos % (Auto) 0.7 % (0.0-4.0); Hematocrit 35.1 % (39.0-51.0); Hemoglobin 11.5 gm/dL (13.0-17.0); Lymph # (Auto) 0.8 th/mm3 (1.0-4.8); Lymph % (Auto) 9.6 % (9.0-44.0); Mean Corpuscular HGB Conc 32.8 % (32.0-36.0); Mean Corpuscular Hemoglobin 30.3 pg (27.0-34.0); Mean Corpuscular Volume 92.3 fL (80.0-100.0); Mean Platelet Volume 9.2 fL (7.0-11.0); Mono # (Auto) 0.4 th/mm3 (0.0-0.9); Mono % (Auto) 5.4 % (0.0-8.0); Neut # (Auto) 6.7 th/mm3 (1.8-7.7); Neut % (Auto) 84.2 % (16.0-70.0); Platelet Count 120 th/mm3 (150-450); Red Cell Distribution Width 14.1 % (11.6-17.2); White Blood Count 7.9 th/mm3 (4.0-11.0)
[2018-03-18 04:16] LABS: Activated Partial Thrombo Time 25.4 sec (24.3-30.1); Prothrombin Time 10.3 sec (9.8-11.6)
[2018-03-18] MEDS: Chlorhexidine Gluconate 2% 1 Pack (2 Cloths) TOPICAL SCH (04:35)
[2018-03-18] MEDS: Sod Chloride 0.9% Inj 1,000 ML IV.CONT SCH ×3 (04:35→17:30)
[2018-03-18 05:23] LABS: Alanine Aminotransferase 28 U/L (12-78); Albumin 2.5 g/dL (3.4-5.0); Anion Gap 5 meq/L (5-15); Aspartate Aminotransferase 11 U/L (15-37); Blood Urea Nitrogen 18 mg/dL (7-18); Calcium 8.1 mg/dL (8.5-10.1); Carbon Dioxide 33.5 meq/L (21.0-32.0); Chloride 109 meq/L (98-107); Glomerular Filtration Rate Greater Than 89 mL/min (>89); Glucose,Random 90 mg/dL (74-106); Magnesium 2.2 mg/dL (1.5-2.5); Phosphorus 2.7 mg/dL (2.5-4.9); Potassium 3.5 meq/L (3.5-5.1); Sodium 147 meq/L (136-145)
[2018-03-18 05:25] LABS: Alkaline Phosphatase 36 U/L (45-117); Total Protein 5.5 g/dL (6.4-8.2)
[2018-03-18] MEDS: Heparin - SQ 10,000 UNITS/ML Vial SQ SCH ×3 (05:26→21:07)
[2018-03-18] MEDS: Budesonide-Formoterol 160/4.5 MCG 6 GM Inhaler INH SCH ×2 (08:09→20:09)
[2018-03-18] MEDS: Tiotropium Bromide 18 MCG/ACT Inhaler INH SCH (08:09)
[2018-03-18] MEDS: Chlorhexidine 0.12% Oral Kit 15 ML UDC OROPHARYNG SCH ×2 (08:10→19:52)
[2018-03-18] MEDS: Famotidine PF Inj 20 MG/2 ML Vial IV.PUSH SCH ×2 (08:17→20:07)
[2018-03-18] MEDS: Ramipril 5 MG Capsule PO SCH (08:18)
[2018-03-18] MEDS: Senna/Docusate Sodium 8.6/50 MG Tablet PO SCH ×2 (08:18→20:07)
[2018-03-18] MEDS: Fenofibrate 145 MG Tablet PO SCH (08:18)
[2018-03-18] MEDS: Digoxin 125 MCG Tablet PO SCH (08:18)
[2018-03-18] MEDS: Vancomycin Inj 2,000 MG in Sodium Chlor 0.9% Inj 500 ML IV.SIG SCH (11:21)
[2018-03-18] MEDS: Morphine Inj 4 MG/ML Vial IV.PUSH PRN (11:21)
--- NOTE | 2018-03-18 11:52 | P.PNCC ---
Subjective Subjective Remarks/Hospital Course: 72-year-old male with history of severe COPD presents with 1 hour history of shortness of breath. He denied any other concurrent complaints . History is limited given clinical acuity. Initial room air sats were 60 and the patient was intubated by ED attending for respiratory failure. 03/17 1000 hours: Patient is still requiring high levels of inspired oxygen. Review of the chest x-rays reveals considerable bullous replacement in the upper lobes with compression of the lower lobes by upper lobe expansion. The bibasilar infiltrates are probably a combination of pneumonia and atelectasis. This gentleman is improving particularly difficult to oxygenate and I suspect will require mechanical ventilation for at least 3-5 days. 03/18: Finally starting to improve his gas exchange. Remains with large oxygen gradients but at least better than yesterday. Lengthy discussion with his today about the probable course of this disease process. Objective Vital Signs / I&O: Vital Signs 03/17/18 11:58 03/17/18 12:00 03/17/18 15:55 Temperature 99.0 F Pulse Rate 79 77 70 Respiratory Rate 18 18 18 Blood Pressure 98/53 L Pulse Oximetry 97 96 03/17/18 16:00 03/17/18 20:00 03/17/18 20:46 Temperature 99.0 F 100.0 F H Pulse Rate 72 77 75 Respiratory Rate 18 18 18 Blood Pressure 108/55 L 122/68 Pulse Oximetry 95 97 98 03/18/18 00:00 03/18/18 01:25 03/18/18 04:00 Temperature 99.3 F 99.4 F Pulse Rate 70 71 73 Respiratory Rate 18 18 18 Blood Pressure 137/67 117/61 Pulse Oximetry 100 99 03/18/18 04:23 03/18/18 08:00 03/18/18 08:25 Temperature 99.4 F Pulse Rate 70 89 85 Respiratory Rate 18 18 18 Blood Pressure 125/68 Pulse Oximetry 94 L 95 96 03/18/18 09:00 03/18/18 11:36 Temperature Pulse Rate 88 86 Respiratory Rate 18 Blood Pressure Pulse Oximetry 93 L Intake & Output 03/17/18 03/18/18 03/18/18 18:59 06:59 18:59 Intake Total 260 / 260 2289 / 2289 300 / 300 Output Total 1125 / 1125 1000 / 1000 Balance -865 / -865 1289 / 1289 300 / 300 Weight 124.1 kg Intake: IV 200 / 200 1524 / 1524 300 / 300 Diprivan 1000 mg/100 ml Inj 1, 100 / 100 200 / 200 000 mg In 100 ml @ 5 MCG/KG/MIN 3.814 mls/hr IV.CONT TITRATE PRN Rx#:[id number] NS Inj 1,000 ML @ 84 mls/hr IV. 974 / 974 CONT .[id number] TEVIN Rx#:[id number] Azithromycin Inj 500 MG In NS 250 / 250 Inj 250 ML @ 250 mls/hr IV.SIG Q24H TEVIN Rx#:[id number] Zosyn 4.5 GM Premix 4.5 gm In 200 / 200 200 / 200 100 / 100 100 ml @ 200 mls/hr IV.SIG Q6H TEVIN Rx#:[id number] Oral 360 / 360 Tube Feeding 245 / 245 Water Bolus Amount 60 / 60 160 / 160 Output: Urine Amount (Catheter) 1125 / 1125 1000 / 1000 Indwelling Urethral Catheter 1125 / 1125 1000 / 1000 Result Diagrams: 03/18/18 03:35 03/18/18 03:35 Objective Remarks: - Imaging Impressions Chest X-Ray 03/16/18 23:55 CONCLUSION: Hyperinflation upper lobe with bullous disease. Bibasilar atelectasis and consolidation consistent with pneumonia. Exam Vital signs: Vital Signs 03/16/18 23:51 03/16/18 23:58 03/17/18 00:00 Temperature Pulse Rate 116 H 114 H Respiratory Rate 30 H Blood Pressure 202/97 H Pulse Oximetry 83 L 93 L 03/17/18 00:01 03/17/18 00:05 03/17/18 00:10 Temperature 100.0 F H Pulse Rate 116 H Respiratory Rate 16 Blood Pressure Pulse Oximetry 93 L 03/17/18 01:15 Temperature Pulse Rate 110 H Respiratory Rate 28 H Blood Pressure 173/79 H Pulse Oximetry 92 L Intake & Output 03/16/18 03/16/18 03/17/18 06:59 18:59 06:59 Weight 127.139 kg - Constitutional Calm, sedated. - Routine HEENT Exam Head: Present: normocephalic, atraumatic Eye: Present: PERRL ENT: Present: mucous membranes moist - Routine Neck Exam Present: supple. Orally intubated. Absent: JVD, carotid bruit - Routine Respiratory Exam Present: Still mechanically ventilated, with few rhonchi and only light wheezes. Absent: stridor, crackles - Routine Cardiovascular Exam Present: RRR, S1, S2, neck veins are full - Routine Abdominal Exam Present: soft, normoactive bowel sounds. No guarding but mildly distended. Absent: tenderness, distended - Routine Extremities Exam Well-perfused. 12+ generalized edema lower extremities below the knee - Routine Skin Exam Present: intact. Absent: cyanosis - Routine Neurological Exam Present: moving all extremities spontaneously when sedation is light.. Opens his eyes to loud voice. Withdraws 4 limbs to stimulation as well. Breathes spontaneously over ventilator. Assessment and Plan - Assessment and Plan Plan: Respiratory failure -COPD exacerbation -Community-acquired pneumonia -Empiric broad-spectrum antibiotics -Vent bundle -DuoNeb scheduled and as needed -IV steroid -SBTs and attempt to extubate daily -Taper FiO2 as tolerated Afib -Continue digoxin -Hold Cardizem due to borderline blood pressure -Rate control acceptable. Anxiety -Diazepam as needed when extubated Chronic pain -Resume morphine MS when extubated Diabetes -Insulin sliding scale -Hold Levemir while n.p.o., resume when tube feeds at the goal -Hold p.o. meds -Resume Levemir Hypertension -Continue ramipril DVT GI prophylaxis -Teds SCDs -Subcu heparin -Pepcid Overall impression: Patient remains critically ill with a requirement for ongoing mechanical ventilation and elevated inspiratory oxygen concentration. Particularly problematic is the compression of his normal lower lobe parenchyma by overextended bullous disease in the upper lobes. I talked extensively to his this morning about his prognosis. Anticipate several more days on ventilator at least Critical care 38 minutes
[2018-03-19] MEDS: Oral Hygiene Kit OROPHARYNG SCH ×4 (00:14→15:17)
[2018-03-19] MEDS: Insulin NovoLOG Aspart Correctional Sugar Inj SQ SCH ×4 (00:14→17:40)
[2018-03-19] MEDS: Sod Chloride 0.9% Inj 1,000 ML IV.CONT SCH (00:55)
[2018-03-19] MEDS: Piperacil/Tazo 4.5 GM Premix 4.5 GM/100 ML BAG IV.SIG SCH ×4 (01:00→20:30)
[2018-03-19] MEDS: Azithromycin Inj 500 MG in Sodium Chlor 0.9% Inj 250 ML IV.SIG SCH (01:34)
[2018-03-19] MEDS: Propofol 1000 mg/100 ml Inj 1,000 MG/100 ML BOTTLE IV.CONT PRN ×9 (01:59→23:22)
--- NOTE | 2018-03-19 03:53 | XR ---
EXAM DATE: 03/19/2018 3:42 AM EDT AGE/SEX: 72 years / Male INDICATIONS: Shortness of breath. CLINICAL DATA: This is the patient's subsequent encounter. Patient reports that signs and symptoms h ave been present for 3 days and indicates a pain score of Nonresponsive. MEDICAL/SURGICAL HISTORY: None. None. COMPARISON: [facility] – [place], CHEST 1V SINGLE AP, 03/17/2018. . FINDINGS: Stable ETT and NGT. Improved aeration in the lower lung zones. Persistent scarring in the right upper lung zone. Cardiomediastinal contours are stable. Remainder of the exam is unchanged. CONCLUSION: 1. Stable ETT and NGT. 2. Improved aeration of the lower lung zones. Electronically signed by: Pino Nuñez MD 03/19/2018 3:52 AM EDT
[2018-03-19] MEDS: Chlorhexidine Gluconate 2% 1 Pack (2 Cloths) TOPICAL SCH (04:27)
[2018-03-19 05:22] LABS: Baso % (Auto) 0.1 % (0.0-2.0); Eos # (Auto) 0.1 th/mm3 (0.0-0.4); Eos % (Auto) 1.4 % (0.0-4.0); Hematocrit 37.5 % (39.0-51.0); Hemoglobin 12.1 gm/dL (13.0-17.0); Lymph # (Auto) 0.8 th/mm3 (1.0-4.8); Lymph % (Auto) 10.1 % (9.0-44.0); Mean Corpuscular HGB Conc 32.2 % (32.0-36.0); Mean Corpuscular Hemoglobin 29.7 pg (27.0-34.0); Mean Corpuscular Volume 92.2 fL (80.0-100.0); Mean Platelet Volume 9.5 fL (7.0-11.0); Mono # (Auto) 0.5 th/mm3 (0.0-0.9); Mono % (Auto) 6.6 % (0.0-8.0); Neut # (Auto) 6.5 th/mm3 (1.8-7.7); Neut % (Auto) 81.8 % (16.0-70.0); Platelet Count 135 th/mm3 (150-450); Red Blood Count 4.07 mil/mm3 (4.50-5.90); Red Cell Distribution Width 13.9 % (11.6-17.2); White Blood Count 7.9 th/mm3 (4.0-11.0)
[2018-03-19 05:51] LABS: Anion Gap 7 meq/L (5-15); Blood Urea Nitrogen 16 mg/dL (7-18); Calcium 8.3 mg/dL (8.5-10.1); Carbon Dioxide 30.5 meq/L (21.0-32.0); Chloride 111 meq/L (98-107); Glomerular Filtration Rate Greater Than 89 mL/min (>89); Glucose,Random 167 mg/dL (74-106); Sodium 148 meq/L (136-145)
[2018-03-19] MEDS: Heparin - SQ 10,000 UNITS/ML Vial SQ SCH ×3 (05:59→21:26)
[2018-03-19] MEDS: Chlorhexidine 0.12% Oral Kit 15 ML UDC OROPHARYNG SCH ×2 (07:33→20:31)
[2018-03-19] MEDS: Ramipril 5 MG Capsule PO SCH (08:25)
[2018-03-19] MEDS: Digoxin 125 MCG Tablet PO SCH (08:26)
[2018-03-19] MEDS: Fenofibrate 145 MG Tablet PO SCH (08:26)
[2018-03-19] MEDS: Famotidine PF Inj 20 MG/2 ML Vial IV.PUSH SCH ×2 (08:26→20:31)
[2018-03-19] MEDS: Senna/Docusate Sodium 8.6/50 MG Tablet PO SCH ×2 (08:26→20:30)
[2018-03-19] MEDS: Budesonide-Formoterol 160/4.5 MCG 6 GM Inhaler INH SCH ×2 (08:27→21:26)
[2018-03-19] MEDS: Tiotropium Bromide 18 MCG/ACT Inhaler INH SCH (08:27)
[2018-03-19] MEDS: Vancomycin Inj 2,000 MG in Sodium Chlor 0.9% Inj 500 ML IV.SIG SCH (09:50)
--- NOTE | 2018-03-19 19:18 | P.PNCC ---
Subjective Subjective Remarks/Hospital Course: 72-year-old male with history of severe COPD presents with 1 hour history of shortness of breath. He denied any other concurrent complaints . History is limited given clinical acuity. Initial room air sats were 60 and the patient was intubated by ED attending for respiratory failure. 03/17 1000 hours: Patient is still requiring high levels of inspired oxygen. Review of the chest x-rays reveals considerable bullous replacement in the upper lobes with compression of the lower lobes by upper lobe expansion. The bibasilar infiltrates are probably a combination of pneumonia and atelectasis. This gentleman is improving particularly difficult to oxygenate and I suspect will require mechanical ventilation for at least 3-5 days. 03/18: Finally starting to improve his gas exchange. Remains with large oxygen gradients but at least better than yesterday. Lengthy discussion with his today about the probable course of this disease process. 03/19: Continued slow improvement in his gas exchange. Down to 50% FiO2 today. This appears to be a staph aureus pneumonia. Coverage is adequate and all narrow the antibiotic spectrum when final results are back. Objective Vital Signs / I&O: Vital Signs 03/18/18 20:00 03/18/18 21:00 03/19/18 00:00 Temperature 99.2 F 98.6 F Pulse Rate 91 H 86 68 Respiratory Rate 19 18 18 Blood Pressure 139/77 132/70 Pulse Oximetry 95 96 97 03/19/18 00:46 03/19/18 04:00 03/19/18 04:17 Temperature 98.7 F Pulse Rate 73 67 68 Respiratory Rate 18 18 18 Blood Pressure 138/76 Pulse Oximetry 97 97 95 03/19/18 08:00 03/19/18 08:12 03/19/18 09:00 Temperature 99.4 F Pulse Rate 94 H 94 H 94 H Respiratory Rate 18 19 Blood Pressure 157/84 H Pulse Oximetry 96 03/19/18 11:13 03/19/18 12:00 03/19/18 15:56 Temperature 99.4 F Pulse Rate 99 H 98 H 96 H Respiratory Rate 20 21 19 Blood Pressure 132/75 Pulse Oximetry 98 97 97 03/19/18 16:00 Temperature 99.5 F Pulse Rate 96 H Respiratory Rate 19 Blood Pressure 142/78 H Pulse Oximetry 97 Intake & Output 03/19/18 03/19/18 03/20/18 06:59 18:59 06:59 Intake Total 2193 / 2193 2516 / 2516 Output Total 1800 / 1800 2500 / 2500 Balance 393 / 393 16 / 16 Weight 124.3 kg Intake: IV 1500 / 1500 1920 / 1920 Diprivan 1000 mg/100 ml Inj 1, 400 / 400 500 / 500 000 mg In 100 ml @ 5 MCG/KG/MIN 3.814 mls/hr IV.CONT TITRATE PRN Rx#:[id number] NS Inj 1,000 ML @ 84 mls/hr IV. 1000 / 1000 350 / 350 CONT .[id number] TEVIN Rx#:[id number] Azithromycin Inj 500 MG In NS 250 / 250 Inj 250 ML @ 250 mls/hr IV.SIG Q24H TEVIN Rx#:[id number] Zosyn 4.5 GM Premix 4.5 gm In 100 / 100 300 / 300 100 ml @ 200 mls/hr IV.SIG Q6H TEVIN Rx#:[id number] Vancomycin Inj 2,000 MG In NS 520 / 520 Inj 500 ML @ 260 mls/hr IV.SIG Q24H TEVIN Rx#:[id number] Tube Feeding 573 / 573 596 / 596 Tube Irrigant 120 / 120 Output: Urine Amount (Catheter) 1800 / 1800 2500 / 2500 Indwelling Urethral Catheter 1800 / 1800 2500 / 2500 Other: # Bowel Movements 0 0 Result Diagrams: 03/19/18 04:39 03/19/18 04:39 Objective Remarks: - Imaging Impressions Chest X-Ray 03/16/18 23:55 CONCLUSION: Hyperinflation upper lobe with bullous disease. Bibasilar atelectasis and consolidation consistent with pneumonia. Exam Vital signs: Vital Signs 03/16/18 23:51 03/16/18 23:58 03/17/18 00:00 Temperature Pulse Rate 116 H 114 H Respiratory Rate 30 H Blood Pressure 202/97 H Pulse Oximetry 83 L 93 L 03/17/18 00:01 03/17/18 00:05 03/17/18 00:10 Temperature 100.0 F H Pulse Rate 116 H Respiratory Rate 16 Blood Pressure Pulse Oximetry 93 L 03/17/18 01:15 Temperature Pulse Rate 110 H Respiratory Rate 28 H Blood Pressure 173/79 H Pulse Oximetry 92 L Intake & Output 03/16/18 03/16/18 03/17/18 06:59 18:59 06:59 Weight 127.139 kg - Constitutional Calm, sedated. - Routine HEENT Exam Head: Present: normocephalic, atraumatic Eye: Present: PERRL ENT: Present: mucous membranes moist - Routine Neck Exam Present: supple. Orally intubated. Absent: JVD, carotid bruit - Routine Respiratory Exam Present: Still mechanically ventilated, with few rhonchi and few light wheezes. Absent: stridor, crackles - Routine Cardiovascular Exam Present: RRR, S1, S2, neck veins are full - Routine Abdominal Exam Present: soft, normoactive bowel sounds. No guarding but mildly distended. Absent: tenderness, distended - Routine Extremities Exam Well-perfused. 12+ generalized edema lower extremities below the knee - Routine Skin Exam Present: intact. Absent: cyanosis - Routine Neurological Exam Present: moving all extremities spontaneously when sedation is light. Opens his eyes to loud voice. Withdraws 4 limbs to stimulation as well. Breathes spontaneously over ventilator. Assessment and Plan - Assessment and Plan Plan: Respiratory failure -COPD exacerbation -Community-acquired pneumonia -Empiric broad-spectrum antibiotics -Vent bundle -DuoNeb scheduled and as needed -IV steroid -SBTs and attempt to extubate daily -Taper FiO2 as tolerated -Despite underlying COPD he appeared to oxygenate better with increased PEEP. -Sputum with large growth staph aureus. Continue vancomycin and Zosyn until all cultures resulted. Afib -Continue digoxin -Hold Cardizem due to borderline blood pressure -Rate control acceptable. Anxiety -Diazepam as needed when extubated Chronic pain -Resume morphine MS when extubated Diabetes -Insulin sliding scale -Hold Levemir while n.p.o., resume when tube feeds at the goal -Hold p.o. meds -Resume Levemir Hypertension -Continue ramipril DVT GI prophylaxis -Teds SCDs -Subcu heparin -Pepcid Overall impression: Patient remains critically ill with a requirement for ongoing mechanical ventilation and elevated inspiratory oxygen concentration. Particularly problematic is the compression of his normal lower lobe parenchyma by overextended bullous disease in the upper lobes. His upper lobes are not hyperinflating despite the extensive bullous disease so we will continue with elevated PEEP and slightly higher tidal volumes to try to reopen his bases. I talked extensively to his this morning about his prognosis. Anticipate several more days on ventilator at least. Critical care 42 minutes
[2018-03-20] MEDS: Oral Hygiene Kit OROPHARYNG SCH ×4 (00:37→17:50)
[2018-03-20] MEDS: Insulin NovoLOG Aspart Correctional Sugar Inj SQ SCH ×4 (00:37→18:30)
[2018-03-20] MEDS: Propofol 1000 mg/100 ml Inj 1,000 MG/100 ML BOTTLE IV.CONT PRN ×6 (01:40→21:00)
[2018-03-20] MEDS: Azithromycin Inj 500 MG in Sodium Chlor 0.9% Inj 250 ML IV.SIG SCH (01:56)
[2018-03-20] MEDS: Piperacil/Tazo 4.5 GM Premix 4.5 GM/100 ML BAG IV.SIG SCH ×4 (01:56→20:14)
[2018-03-20 05:08] LABS: Baso % (Auto) 0.1 % (0.0-2.0); Eos % (Auto) 0.4 % (0.0-4.0); Hematocrit 39.3 % (39.0-51.0); Hemoglobin 12.6 gm/dL (13.0-17.0); Lymph # (Auto) 0.4 th/mm3 (1.0-4.8); Lymph % (Auto) 5.8 % (9.0-44.0); Mean Corpuscular HGB Conc 32.2 % (32.0-36.0); Mean Corpuscular Hemoglobin 29.9 pg (27.0-34.0); Mean Corpuscular Volume 93.1 fL (80.0-100.0); Mean Platelet Volume 9.9 fL (7.0-11.0); Mono # (Auto) 0.5 th/mm3 (0.0-0.9); Mono % (Auto) 6.1 % (0.0-8.0); Neut # (Auto) 6.7 th/mm3 (1.8-7.7); Neut % (Auto) 87.6 % (16.0-70.0); Platelet Count 142 th/mm3 (150-450); Red Blood Count 4.22 mil/mm3 (4.50-5.90); Red Cell Distribution Width 14.3 % (11.6-17.2); White Blood Count 7.7 th/mm3 (4.0-11.0)
[2018-03-20 05:29] LABS: Anion Gap 9 meq/L (5-15); Blood Urea Nitrogen 20 mg/dL (7-18); Calcium 8.4 mg/dL (8.5-10.1); Carbon Dioxide 28.9 meq/L (21.0-32.0); Chloride 115 meq/L (98-107); Glomerular Filtration Rate Greater Than 89 mL/min (>89); Glucose,Random 146 mg/dL (74-106); Potassium 4.4 meq/L (3.5-5.1); Sodium 153 meq/L (136-145)
[2018-03-20] MEDS: Heparin - SQ 10,000 UNITS/ML Vial SQ SCH ×3 (06:07→21:51)
[2018-03-20] MEDS: Chlorhexidine Gluconate 2% 1 Pack (2 Cloths) TOPICAL SCH (06:07)
[2018-03-20] MEDS: Budesonide-Formoterol 160/4.5 MCG 6 GM Inhaler INH SCH ×2 (08:26→21:51)
[2018-03-20] MEDS: Tiotropium Bromide 18 MCG/ACT Inhaler INH SCH (08:26)
[2018-03-20] MEDS ORDERED: Pharmacy Ordered Lab Info OTHER ONE (09:45)
[2018-03-20] MEDS: Chlorhexidine 0.12% Oral Kit 15 ML UDC OROPHARYNG SCH ×2 (09:48→20:15)
[2018-03-20] MEDS: Famotidine PF Inj 20 MG/2 ML Vial IV.PUSH SCH (09:49)
[2018-03-20] MEDS: Fenofibrate 145 MG Tablet PO SCH (09:51)
[2018-03-20] MEDS: Senna/Docusate Sodium 8.6/50 MG Tablet PO SCH ×2 (09:51→20:15)
[2018-03-20] MEDS: Digoxin 125 MCG Tablet PO SCH (09:52)
[2018-03-20] MEDS: Ramipril 5 MG Capsule PO SCH (09:52)
[2018-03-20] MEDS: Acetaminophen 325 MG Tablet PO PRN ×2 (10:25→18:30)
[2018-03-20] MEDS: Morphine Inj 4 MG/ML Vial IV.PUSH PRN (12:31)
[2018-03-20] MEDS: Vancomycin Inj 2,000 MG in Sodium Chlor 0.9% Inj 500 ML IV.SIG SCH (12:33)
[2018-03-20] MEDS ORDERED: Mineral Oil Liq 30 ML UDC PO ONE (19:01)
--- NOTE | 2018-03-20 19:01 | P.PNCC ---
Subjective Subjective Remarks/Hospital Course: 72-year-old male with history of severe COPD presents with 1 hour history of shortness of breath. He denied any other concurrent complaints . History is limited given clinical acuity. Initial room air sats were 60 and the patient was intubated by ED attending for respiratory failure. 03/17 1000 hours: Patient is still requiring high levels of inspired oxygen. Review of the chest x-rays reveals considerable bullous replacement in the upper lobes with compression of the lower lobes by upper lobe expansion. The bibasilar infiltrates are probably a combination of pneumonia and atelectasis. This gentleman is improving particularly difficult to oxygenate and I suspect will require mechanical ventilation for at least 3-5 days. 03/18: Finally starting to improve his gas exchange. Remains with large oxygen gradients but at least better than yesterday. Lengthy discussion with his today about the probable course of this disease process. 03/19: Continued slow improvement in his gas exchange. Down to 50% FiO2 today. This appears to be a staph aureus pneumonia. Coverage is adequate and all narrow the antibiotic spectrum when final results are back. Subjective 03/20: MRSA pneumonia documented. Continues vancomycin. Continue piperacillin/ tazobactam and azithromycin for cultures final. Weaning down FiO2 to 40%. PEEP to 10. Objective Vital Signs / I&O: Vital Signs 03/19/18 20:00 03/19/18 20:21 03/19/18 22:56 Temperature 99.6 F Pulse Rate 102 H 103 H Respiratory Rate 27 H 19 18 Blood Pressure 140/80 Pulse Oximetry 95 97 95 03/19/18 23:18 03/20/18 00:00 03/20/18 01:35 Temperature 99.4 F Pulse Rate 102 H 100 H Respiratory Rate 19 18 19 Blood Pressure 127/79 Pulse Oximetry 94 L 94 L 03/20/18 03:52 03/20/18 04:00 03/20/18 06:05 Temperature 99.3 F Pulse Rate 98 H 99 H Respiratory Rate 18 18 18 Blood Pressure 148/71 H Pulse Oximetry 97 93 L 03/20/18 07:42 03/20/18 08:00 03/20/18 09:00 Temperature 101.0 F H Pulse Rate 99 H 101 H 101 H Respiratory Rate 20 18 Blood Pressure 158/82 H Pulse Oximetry 94 L 96 03/20/18 11:10 03/20/18 12:00 03/20/18 12:37 Temperature 102.1 F H Pulse Rate 109 H 107 H Respiratory Rate 21 17 9 L Blood Pressure 173/87 H Pulse Oximetry 94 L 96 03/20/18 14:20 03/20/18 16:00 03/20/18 16:40 Temperature 102.1 F H Pulse Rate 103 H Respiratory Rate 18 18 18 Blood Pressure 170/76 H Pulse Oximetry 94 L 94 L 97 03/20/18 16:46 Temperature Pulse Rate 101 H Respiratory Rate 26 H Blood Pressure Pulse Oximetry Intake & Output 03/19/18 03/20/18 03/20/18 18:59 06:59 18:59 Intake Total 2516 / 2516 1790 / 1790 1691 / 1691 Output Total 2500 / 2500 2650 / 2650 2400 / 2400 Balance -860 / -860 -709 / -709 Weight 124.2 kg Intake: IV 1920 / 1920 950 / 950 920 / 920 Diprivan 1000 mg/100 ml Inj 1, 500 / 500 500 / 500 200 / 200 000 mg In 100 ml @ 5 MCG/KG/MIN 3.814 mls/hr IV.CONT TITRATE PRN Rx#:[id number] NS Inj 1,000 ML @ 84 mls/hr IV. 350 / 350 CONT .[id number] TEVIN Rx#:[id number] Azithromycin Inj 500 MG In NS 250 / 250 250 / 250 Inj 250 ML @ 250 mls/hr IV.SIG Q24H TEVIN Rx#:[id number] Zosyn 4.5 GM Premix 4.5 gm In 300 / 300 200 / 200 200 / 200 100 ml @ 200 mls/hr IV.SIG Q6H TEVIN Rx#:[id number] Vancomycin Inj 2,000 MG In NS 520 / 520 520 / 520 Inj 500 ML @ 260 mls/hr IV.SIG Q24H TEVIN Rx#:[id number] Tube Feeding 596 / 596 640 / 640 571 / 571 Tube Irrigant 200 / 200 Water Bolus Amount 200 / 200 Output: Urine Amount (Catheter) 2500 / 2500 2650 / 2650 2400 / 2400 Indwelling Urethral Catheter 2500 / 2500 2650 / 2650 2400 / 2400 Other: # Bowel Movements 0 0 0 Result Diagrams: 03/20/18 04:01 03/20/18 04:01 Other Results: Microbiology 03/16/18 23:55 Blood - Peripheral Aerobic Blood Culture - Preliminary No growth in 3 days 03/16/18 23:55 Blood - Peripheral Anaerobic Blood Culture - Preliminary No growth in 3 days 03/17/18 00:00 Blood - Peripheral Aerobic Blood Culture - Preliminary No growth in 3 days 03/17/18 00:00 Blood - Peripheral Anaerobic Blood Culture - Preliminary No growth in 3 days 03/17/18 16:00 Sputum - Endotracheal Gram Stain - Final 03/17/18 16:00 Sputum - Endotracheal Sputum Culture - Final S. aureus MRSA 03/17/18 02:25 Nasal Wash Influenza Types A,B Antigen - Final Negative for FLU A and B antigen Infection due to influenza A or B cannot be ruled out since the antigen present in the sample may be below the detection limit of the test. Imaging: Chest X-Ray 03/16/18 23:55 CONCLUSION: 1. New patchy left lower lobe airspace disease concerning for pneumonia or aspiration in the appropriate clinical setting. 2. More prominent scarring/atelectasis and volume loss in the right lower lung zone. 3. Stable right upper lung zone scarring. Chest X-Ray 03/17/18 01:46 CONCLUSION: 1. ETT in good position. NGT beyond the GE junction. 2. Worsening left lower lobe airspace consolidation. 3. Right lower lobe airspace consolidation, likely atelectasis. 4. Right-sided parenchymal scarring. Chest X-Ray 03/19/18 04:00 CONCLUSION: 1. Stable ETT and NGT. 2. Improved aeration of the lower lung zones. Objective Remarks: GENERAL: 72-year-old male currently orotracheally intubated SKIN: Warm and dry. Large sherman cabrera HEAD: Atraumatic. Normocephalic. EYES: Pupils equal and round around 3 mm bilaterally and reactive. No scleral icterus. No injection or drainage. ENT: No nasal bleeding or discharge. Mucous membranes pink and moist. NECK: Trachea midline. No JVD. CARDIOVASCULAR: Regular rate and rhythm. S1, S2 no S4. Without murmur RESPIRATORY: Diminished. Coarse rhonchorous the anterior and posterior. Positive end expiratory wheeze. GASTROINTESTINAL: Abdomen obese but reducible. Hypoactive bowel sounds appreciated.. MUSCULOSKELETAL: Extremities with trace bilateral lower extremity edema. No obvious deformities. NEUROLOGICAL: Also on the ventilator on propofol drip at 20 m/kg/min. Follows simple commands. Moves all 4 extremities spontaneously. Assessment and Plan - Assessment and Plan Plan: Neuro/Psych: Chronic pain syndrome Chronic benzodiazepine use on diazepam 10 mg twice daily as needed Chronic opioid use on morphine sulfate 15 mg p.o. every 8 hours Currently a propofol drip at 20 mcg/kg/min. Add fentanyl drip due to chronic opioid use Goal of RA SS -2 Daily sedation vacation Acetaminophen 650 mg p.o. every 6 hours as needed fever Holding as needed benzodiazepines and opiates from home CV: Paroxysmal atrial fibrillation currently normal sinus rhythm Hypertension Hyperlipidemia Currently on ramipril 20 mg daily, hydralazine 25 mg 3 times daily and diltiazem 30 mg every 6 hours. As needed Nitropaste and labetalol ordered Home medications include amlodipine 5 mg daily, diltiazem 240 mg daily, ramipril 10 mg daily Home medications include fenofibrate 160 g daily and atorvastatin 40 mg daily for dyslipidemia. Home medications digoxin 0.125 mg daily. This has been resumed. Recheck level in a.m. Resp: Acute respiratory failure MRSA pneumonia COPD exacerbation PRVC ventilation with a PEEP of 10 FiO2 currently at 40%. We will wean PEEP as tolerated Follow-up chest x-ray in a.m. 03/21 Albuterol/ipratropium aerosols every 4 hours with albuterol aerosols every 2 hours as needed for dyspnea Ventilator bundle Continue Symbicort 160/4.5 2 puffs twice daily via specialized aerosolized chamber for ventilator Currently holding T ipratropium while intubated GI: Currently Glucerna 1.5 goal 65 cc an hour Lansoprazole for GI prophylaxis Docusate sodium/senna 1 tablet twice daily for bowel regimen. Add polythene glycol 17 g twice daily and mineral oil 15 cc 1 now. : Levine catheter for accurate I's and O's in a critically ill patient Endo: DM Sliding scale insulin to maintain euglycemia Start insulin glargine 10 units twice daily Holding canagliflozin 300 mg daily, metformin 1000 mg twice daily and glipizide 10 mg twice daily. Renal: Creatinine currently within normal limits Monitor urine output Accurate I's and O's Heme: Normocytic anemia Monitor CBC daily. Follow trends ID: MRSA pneumonia Currently on vancomycin, piperacillin/tazobactam and azithromycin since 03/16 Sputum 03/16 revealed MRSA. Blood culture 03/16 and no growth to date Influenza negative MSK PT evaluate and treat FEN: Hypernatremia Start free water 250 by tube every 4 hours Recheck BMP mag plus in a.m. Access -Utilize peripheral IV. Central line if indicated Prophylaxis -GI -lansoprazole -DVT -SCD/heparin subcu 35 minutes critical care time
[2018-03-20] MEDS ORDERED: Labetalol HCl Inj 100 MG/20 ML Vial IV.PUSH PRN (19:22)
[2018-03-20] MEDS ORDERED: fentaNYL 10 mcg/mL Premix Drip 2,500 MCG/250 ML BAG IV.SIG PRN (19:42)
[2018-03-20] MEDS ORDERED: Methylnaltrexone Inj 12 MG/0.6 ML Vial SQ ONE (19:49)
[2018-03-20] MEDS: Vancomycin Inj 1,500 MG in Sodium Chlor 0.9% Inj 500 ML IV.SIG SCH (20:14)
[2018-03-20] MEDS: Hypromellose 0.3% Opth Gel 10 GM Bottle EACH EYE SCH (20:14)
[2018-03-20] MEDS: Polyethylene Glycol 3350 17 GM Packet PO SCH (20:15)
[2018-03-20] MEDS: dilTIAZem 30 MG Tablet PO SCH (20:15)
[2018-03-20] MEDS ORDERED: MethylPREDNISolone Sod Succinate Inj 40 MG/ML Vial IV.PUSH SCH (21:00)
[2018-03-20] MEDS: Insulin Detemir Inj 1,000 UNIT/10 ML Vial SQ SCH (21:50)
[2018-03-20] MEDS: hydrALAZINE 25 MG Tablet PO SCH (21:50)
[2018-03-21] MEDS: Oral Hygiene Kit OROPHARYNG SCH ×4 (00:59→15:30)
[2018-03-21] MEDS: Insulin NovoLOG Aspart Correctional Sugar Inj SQ SCH ×4 (01:16→18:11)
[2018-03-21] MEDS: Piperacil/Tazo 4.5 GM Premix 4.5 GM/100 ML BAG IV.SIG SCH ×4 (01:17→20:43)
[2018-03-21] MEDS: Azithromycin Inj 500 MG in Sodium Chlor 0.9% Inj 250 ML IV.SIG SCH (01:17)
[2018-03-21] MEDS: Propofol 1000 mg/100 ml Inj 1,000 MG/100 ML BOTTLE IV.CONT PRN ×2 (02:50→05:47)
--- NOTE | 2018-03-21 04:14 | XR ---
EXAM DATE: 03/21/2018 4:11 AM EDT AGE/SEX: 72 years / Male INDICATIONS: Respiratory failure. CLINICAL DATA: This is the patient's subsequent encounter. Patient reports that signs and symptoms h ave been present for 4 - 6 days and indicates a pain score of Nonresponsive. MEDICAL/SURGICAL HISTORY: None. None. COMPARISON: [facility] [place], CHEST 1V SINGLE AP, 03/19/2018. . FINDINGS: A single AP portable semierect view of the chest was obtained and again demonstrates the endotracheal tube in place with the tip approximately 4 cm above the jose. The nasogastric tube is faintly visu alized. Discoid atelectasis remains in the right upper lobe. There is patchy airspace opacity remaini ng at the lung bases without significant change. The costophrenic angles appear mildly blunted. The h eart size is at the upper limits of normal. CONCLUSION: No significant change. Electronically signed by: Fermín Chavarria MD 03/21/2018 4:13 AM EDT
[2018-03-21 05:06] LABS: Baso % (Auto) 0.3 % (0.0-2.0); Eos % (Auto) 0.2 % (0.0-4.0); Hematocrit 40.7 % (39.0-51.0); Hemoglobin 13.1 gm/dL (13.0-17.0); Lymph # (Auto) 0.6 th/mm3 (1.0-4.8); Lymph % (Auto) 8.1 % (9.0-44.0); Mean Corpuscular HGB Conc 32.1 % (32.0-36.0); Mean Corpuscular Hemoglobin 29.6 pg (27.0-34.0); Mean Corpuscular Volume 92.2 fL (80.0-100.0); Mean Platelet Volume 9.7 fL (7.0-11.0); Mono # (Auto) 0.5 th/mm3 (0.0-0.9); Mono % (Auto) 6.1 % (0.0-8.0); Neut # (Auto) 6.3 th/mm3 (1.8-7.7); Neut % (Auto) 85.3 % (16.0-70.0); Platelet Count 155 th/mm3 (150-450); Red Blood Count 4.42 mil/mm3 (4.50-5.90); Red Cell Distribution Width 14.3 % (11.6-17.2); White Blood Count 7.4 th/mm3 (4.0-11.0)
[2018-03-21 05:34] LABS: Alanine Aminotransferase 27 U/L (12-78); Albumin 2.3 g/dL (3.4-5.0); Alkaline Phosphatase 46 U/L (45-117); Anion Gap 6 meq/L (5-15); Aspartate Aminotransferase 15 U/L (15-37); Blood Urea Nitrogen 26 mg/dL (7-18); Calcium 8.3 mg/dL (8.5-10.1); Carbon Dioxide 32.1 meq/L (21.0-32.0); Chloride 118 meq/L (98-107); Digoxin 0.3 ng/mL (0.8-2.0); Glomerular Filtration Rate Greater Than 89 mL/min (>89); Glucose,Random 145 mg/dL (74-106); Magnesium 2.6 mg/dL (1.5-2.5); Phosphorus 2.9 mg/dL (2.5-4.9); Potassium 4.5 meq/L (3.5-5.1); Total Protein 5.8 g/dL (6.4-8.2)
[2018-03-21 05:37] LABS: ABG Base Excess 5.9 mmol/L (-2-2); ABG PCO2 58 mmHg (38-42); ABG PO2 72 mmHg (61-120)
[2018-03-21 05:45] LABS: Sodium 156 meq/L (136-145)
[2018-03-21] MEDS: Chlorhexidine Gluconate 2% 1 Pack (2 Cloths) TOPICAL SCH (05:45)
[2018-03-21] MEDS: Acetaminophen 325 MG Tablet PO PRN (05:49)
--- NOTE | 2018-03-21 07:36 | P.PNCC ---
Subjective Subjective Remarks/Hospital Course: 72-year-old male with history of severe COPD presents with 1 hour history of shortness of breath. He denied any other concurrent complaints . History is limited given clinical acuity. Initial room air sats were 60 and the patient was intubated by ED attending for respiratory failure. 03/17 1000 hours: Patient is still requiring high levels of inspired oxygen. Review of the chest x-rays reveals considerable bullous replacement in the upper lobes with compression of the lower lobes by upper lobe expansion. The bibasilar infiltrates are probably a combination of pneumonia and atelectasis. This gentleman is improving particularly difficult to oxygenate and I suspect will require mechanical ventilation for at least 3-5 days. 03/18: Finally starting to improve his gas exchange. Remains with large oxygen gradients but at least better than yesterday. Lengthy discussion with his today about the probable course of this disease process. 03/19: Continued slow improvement in his gas exchange. Down to 50% FiO2 today. This appears to be a staph aureus pneumonia. Coverage is adequate and all narrow the antibiotic spectrum when final results are back. Subjective 03/20: MRSA pneumonia documented. Continues vancomycin. Continue piperacillin/ tazobactam and azithromycin for cultures final. Weaning down FiO2 to 40%. PEEP to 10. 03/21: Remains intubated sedated critical. FiO2 increased to 45% due to intermittent hypoxia. Chest x-ray remains stable with bibasilar infiltrates. Gets agitated when sedation is held. Will start weaning trials today, add Precedex to facilitate weaning trials. Sodium increased to 156 from 153 yesterday. Start quarter normal saline at 100 mL/h for48 hours. Give Lasix 40 mg IV 1 for weight gain fluid overload Objective Vital Signs / I&O: Vital Signs 03/20/18 07:42 03/20/18 08:00 03/20/18 09:00 Temperature 101.0 F H Pulse Rate 99 H 101 H 101 H Respiratory Rate 20 18 Blood Pressure 158/82 H Pulse Oximetry 94 L 96 03/20/18 11:10 03/20/18 12:00 03/20/18 12:37 Temperature 102.1 F H Pulse Rate 109 H 107 H Respiratory Rate 21 17 9 L Blood Pressure 173/87 H Pulse Oximetry 94 L 96 03/20/18 14:20 03/20/18 16:00 03/20/18 16:40 Temperature 102.1 F H Pulse Rate 103 H Respiratory Rate 18 18 18 Blood Pressure 170/76 H Pulse Oximetry 94 L 94 L 97 03/20/18 16:46 03/20/18 19:41 03/20/18 20:00 Temperature 99.1 F Pulse Rate 101 H 93 H 90 Respiratory Rate 26 H 18 18 Blood Pressure 137/62 Pulse Oximetry 94 L 96 03/21/18 00:00 03/21/18 00:26 03/21/18 01:15 Temperature 100.9 F H Pulse Rate 103 H Respiratory Rate 21 18 20 Blood Pressure 160/72 H Pulse Oximetry 94 L 97 03/21/18 03:50 03/21/18 04:00 Temperature 101.6 F H Pulse Rate 95 H 96 H Respiratory Rate 18 18 Blood Pressure 118/58 L Pulse Oximetry 93 L 96 Intake & Output 03/20/18 03/21/18 03/21/18 18:59 06:59 18:59 Intake Total 1691 / 1691 2600 / 2600 Output Total 2400 / 2400 1999 Balance -709 / -709 600 / 600 Weight 124.9 kg Intake: IV 920 / 920 1240 / 1240 Diprivan 1000 mg/100 ml Inj 1, 200 / 200 290 / 290 000 mg In 100 ml @ 5 MCG/KG/MIN 3.814 mls/hr IV.CONT TITRATE PRN Rx#:[id number] Azithromycin Inj 500 MG In NS 250 / 250 Inj 250 ML @ 250 mls/hr IV.SIG Q24H TEVIN Rx#:[id number] Zosyn 4.5 GM Premix 4.5 gm In 200 / 200 200 / 200 100 ml @ 200 mls/hr IV.SIG Q6H TEVIN Rx#:[id number] Vancomycin Inj 1,500 MG In NS 520 / 520 500 / 500 Inj 500 ML @ 250 mls/hr IV.SIG Q12H TEVIN Rx#:[id number] Tube Feeding 571 / 571 660 / 660 Tube Irrigant 100 / 100 Water Bolus Amount 200 / 200 600 / 600 Output: Urine Amount (Catheter) 2400 / 2400 1999 Indwelling Urethral Catheter 2400 / 2400 1999 Other: # Bowel Movements 0 0 Result Diagrams: 03/21/18 04:09 03/21/18 04:09 Objective Remarks: GENERAL: 72-year-old male currently orotracheally intubated SKIN: Warm and dry. Large cabrera HEAD: Atraumatic. Normocephalic. EYES: Pupils equal and round around 3 mm bilaterally and reactive. No scleral icterus. No injection or drainage. ENT: No nasal bleeding or discharge. Mucous membranes pink and moist. NECK: Trachea midline. No JVD. CARDIOVASCULAR: Regular rate and rhythm. S1, S2 no S4. Without murmur RESPIRATORY: Diminished. Coarse rhonchorous the anterior and posterior. Mild end expiratory wheeze. GASTROINTESTINAL: Abdomen obese.. Hypoactive bowel sounds appreciated.. MUSCULOSKELETAL: Extremities with trace bilateral lower extremity edema. No obvious deformities. NEUROLOGICAL: On ventilator on propofol and fentanyl drip. Follows simple commands. Moves all 4 extremities spontaneously. Assessment and Plan - Assessment and Plan Plan: Neuro/Psych: Chronic pain syndrome Chronic benzodiazepine use on diazepam 10 mg twice daily as needed Chronic opioid use on morphine sulfate 15 mg p.o. every 8 hours Currently a propofol drip and fentanyl drip due to chronic opioid use Goal of RA SS -2 Add Precedex to facilitate ventilator weaning. Daily sedation vacation Acetaminophen 650 mg p.o. every 6 hours as needed fever Holding as needed benzodiazepines and opiates from home CV: Paroxysmal atrial fibrillation currently normal sinus rhythm Hypertension Hyperlipidemia Currently on ramipril 20 mg daily, hydralazine 25 mg 3 times daily and diltiazem 30 mg every 6 hours. As needed Nitropaste and labetalol ordered Home medications include amlodipine 5 mg daily, diltiazem 240 mg daily, ramipril 10 mg daily Home medications include fenofibrate 160 g daily and atorvastatin 40 mg daily for dyslipidemia. Home medications digoxin 0.125 mg daily. This has been resumed. level 0.3 Resp: Acute hypoxemic respiratory failure MRSA pneumonia COPD exacerbation PRVC ventilation with a PEEP of 10, reduce PEEP to 8 FiO2 currently at 45%. Initiate CPAP trials as tolerated Albuterol/ipratropium aerosols every 4 hours with albuterol aerosols every 2 hours as needed for dyspnea Ventilator bundle Continue Symbicort 160/4.5 2 puffs twice daily via specialized aerosolized chamber for ventilator Currently holding T ipratropium while intubated GI: Currently Glucerna 1.5 goal 65 cc an hour Lansoprazole for GI prophylaxis Docusate sodium/senna 1 tablet twice daily for bowel regimen. Polythene glycol 17 g twice daily and mineral oil 15 cc 1 now. Endo: DM Sliding scale insulin to maintain euglycemia Insulin glargine 10 units twice daily Holding canagliflozin 300 mg daily, metformin 1000 mg twice daily and glipizide 10 mg twice daily. Renal: Creatinine currently within normal limits Monitor urine output Accurate I's and O's Levine in critically ill patient Heme: Normocytic anemia Monitor CBC daily. Follow trends ID: MRSA pneumonia Currently on vancomycin, piperacillin/tazobactam and azithromycin since 03/16 Sputum 03/16 revealed MRSA. Blood culture 03/16 and no growth to date Influenza negative FEN: Hypernatremia Free water 250 by tube every 4 hours Start quarter normal saline 100 mL/h for 48 hours Recheck BMP mag plus in a.m. Access -Utilize peripheral IV. Central line if indicated Prophylaxis -GI -lansoprazole -DVT -SCD/heparin subcu 35 minutes critical care time
[2018-03-21] MEDS: Heparin - SQ 10,000 UNITS/ML Vial SQ SCH ×3 (07:40→21:39)
[2018-03-21] MEDS ORDERED: Dexmedetomidine Inj 200 MCG in Sodium Chlor 0.9% Inj 48 ML IV.CONT PRN (08:30)
[2018-03-21] MEDS ORDERED: RASS Change Order OTHER ONE (09:00)
[2018-03-21] MEDS: Sodium Chloride 23.4% Inj 38.5 MEQ in Water for Inj, Sterile 1,000 ML IV.CONT SCH (09:18)
[2018-03-21] MEDS: Ramipril 5 MG Capsule PO SCH (09:20)
[2018-03-21] MEDS: Fenofibrate 145 MG Tablet PO SCH (09:20)
[2018-03-21] MEDS: Digoxin 125 MCG Tablet PO SCH (09:21)
[2018-03-21] MEDS: Senna/Docusate Sodium 8.6/50 MG Tablet PO SCH ×2 (09:21→20:46)
[2018-03-21] MEDS: hydrALAZINE 25 MG Tablet PO SCH ×3 (09:21→17:40)
[2018-03-21] MEDS: Vancomycin Inj 1,500 MG in Sodium Chlor 0.9% Inj 500 ML IV.SIG SCH ×2 (09:21→22:26)
[2018-03-21] MEDS: dilTIAZem 30 MG Tablet PO SCH ×4 (09:21→20:44)
[2018-03-21] MEDS: Insulin Detemir Inj 1,000 UNIT/10 ML Vial SQ SCH ×2 (09:27→20:45)
[2018-03-21] MEDS: Chlorhexidine 0.12% Oral Kit 15 ML UDC OROPHARYNG SCH ×2 (09:27→22:27)
[2018-03-21] MEDS: Budesonide-Formoterol 160/4.5 MCG 6 GM Inhaler INH SCH ×2 (09:28→20:47)
[2018-03-21] MEDS: Polyethylene Glycol 3350 17 GM Packet PO SCH ×2 (09:28→20:46)
[2018-03-21] MEDS: Hypromellose 0.3% Opth Gel 10 GM Bottle EACH EYE SCH ×2 (09:28→20:44)
[2018-03-21] MEDS: MethylPREDNISolone Sod Succinate Inj 40 MG/ML Vial IV.PUSH SCH ×2 (13:56→21:39)
[2018-03-22] MEDS: Insulin NovoLOG Aspart Correctional Sugar Inj SQ SCH ×4 (00:14→21:18)
[2018-03-22] MEDS: Oral Hygiene Kit OROPHARYNG SCH ×4 (00:14→21:17)
[2018-03-22] MEDS: Piperacil/Tazo 4.5 GM Premix 4.5 GM/100 ML BAG IV.SIG SCH ×4 (01:59→21:33)
[2018-03-22] MEDS: Azithromycin Inj 500 MG in Sodium Chlor 0.9% Inj 250 ML IV.SIG SCH (02:00)
--- NOTE | 2018-03-22 05:06 | XR ---
EXAM DATE: 03/22/2018 4:58 AM EDT AGE/SEX: 72 years / Male INDICATIONS: Shortness of breath. CLINICAL DATA: This is the patient's subsequent encounter. Patient reports that signs and symptoms h ave been present for 4 - 6 days and indicates a pain score of Nonresponsive. MEDICAL/SURGICAL HISTORY: None. None. COMPARISON: No prior exams available for comparison. FINDINGS: A single AP semierect view of the chest was obtained and demonstrates interval extubation and removal of nasogastric tube. This study is more mid inspiratory with crowding of the lung vasculature. There is patchy airspace disease remaining at the lung bases with blunting of the costophrenic angles. The re is scarring again noted in the right upper lobe. The bony thorax remains intact in appearance. CONCLUSION: 1. Interval extubation and removal of nasogastric tube. 2. Mid inspiratory study with crowding of the lung vasculature. Patchy airspace disease remains at t he lung bases. 3. The costophrenic angles remain blunted most consistent with small effusions. Electronically signed by: Fermín Chavarria MD 03/22/2018 5:05 AM EDT
[2018-03-22] MEDS: Heparin - SQ 10,000 UNITS/ML Vial SQ SCH ×3 (05:56→21:32)
[2018-03-22] MEDS: MethylPREDNISolone Sod Succinate Inj 40 MG/ML Vial IV.PUSH SCH ×3 (05:57→21:32)
[2018-03-22] MEDS: Sodium Chloride 23.4% Inj 38.5 MEQ in Water for Inj, Sterile 1,000 ML IV.CONT SCH ×2 (06:00→06:01)
[2018-03-22 06:03] LABS: Hematocrit 36.2 % (39.0-51.0); Hemoglobin 11.9 gm/dL (13.0-17.0); Mean Corpuscular HGB Conc 32.8 % (32.0-36.0); Mean Corpuscular Hemoglobin 30.1 pg (27.0-34.0); Mean Corpuscular Volume 91.7 fL (80.0-100.0); Mean Platelet Volume 8.9 fL (7.0-11.0); Platelet Count 129 th/mm3 (150-450); Red Blood Count 3.95 mil/mm3 (4.50-5.90); Red Cell Distribution Width 14.1 % (11.6-17.2)
[2018-03-22 06:23] LABS: Albumin 2.2 g/dL (3.4-5.0); Anion Gap 6 meq/L (5-15); Aspartate Aminotransferase 15 U/L (15-37); Blood Urea Nitrogen 18 mg/dL (7-18); Calcium 8.1 mg/dL (8.5-10.1); Carbon Dioxide 33.1 meq/L (21.0-32.0); Chloride 109 meq/L (98-107); Glomerular Filtration Rate Greater Than 89 mL/min (>89); Glucose,Random 75 mg/dL (74-106); Potassium 3.8 meq/L (3.5-5.1); Sodium 148 meq/L (136-145)
[2018-03-22 06:32] LABS: Alanine Aminotransferase 24 U/L (12-78); Alkaline Phosphatase 35 U/L (45-117); Total Protein 5.4 g/dL (6.4-8.2)
[2018-03-22] MEDS ORDERED: Pharmacy Ordered Lab Info OTHER ONE (07:45)
[2018-03-22] MEDS: dilTIAZem 30 MG Tablet PO SCH ×4 (08:08→20:36)
[2018-03-22] MEDS: Digoxin 125 MCG Tablet PO SCH (08:08)
[2018-03-22] MEDS: hydrALAZINE 25 MG Tablet PO SCH ×3 (08:09→17:17)
[2018-03-22] MEDS: Senna/Docusate Sodium 8.6/50 MG Tablet PO SCH ×2 (08:09→20:36)
[2018-03-22] MEDS: Fenofibrate 145 MG Tablet PO SCH (08:15)
[2018-03-22] MEDS: Ramipril 5 MG Capsule PO SCH (08:15)
--- NOTE | 2018-03-22 08:27 | P.PNCC ---
Subjective Subjective Remarks/Hospital Course: 72-year-old male with history of severe COPD presents with 1 hour history of shortness of breath. He denied any other concurrent complaints . History is limited given clinical acuity. Initial room air sats were 60 and the patient was intubated by ED attending for respiratory failure. 03/17 1000 hours: Patient is still requiring high levels of inspired oxygen. Review of the chest x-rays reveals considerable bullous replacement in the upper lobes with compression of the lower lobes by upper lobe expansion. The bibasilar infiltrates are probably a combination of pneumonia and atelectasis. This gentleman is improving particularly difficult to oxygenate and I suspect will require mechanical ventilation for at least 3-5 days. 03/18: Finally starting to improve his gas exchange. Remains with large oxygen gradients but at least better than yesterday. Lengthy discussion with his today about the probable course of this disease process. 03/19: Continued slow improvement in his gas exchange. Down to 50% FiO2 today. This appears to be a staph aureus pneumonia. Coverage is adequate and all narrow the antibiotic spectrum when final results are back. Subjective 03/20: MRSA pneumonia documented. Continues vancomycin. Continue piperacillin/ tazobactam and azithromycin for cultures final. Weaning down FiO2 to 40%. PEEP to 10. 03/21: Remains intubated sedated critical. FiO2 increased to 45% due to intermittent hypoxia. Chest x-ray remains stable with bibasilar infiltrates. Gets agitated when sedation is held. Will start weaning trials today, add Precedex to facilitate weaning trials. Sodium increased to 156 from 153 yesterday. Start quarter normal saline at 100 mL/h for48 hours. Give Lasix 40 mg IV 1 for weight gain fluid overload 03/22: Patient was extubated yesterday tolerating well breathing comfortably. Sodium has improved to 148 today. Urine output is adequate. Chest x-ray with persistent bilateral infiltrates Objective Vital Signs / I&O: Vital Signs 03/21/18 08:46 03/21/18 09:00 03/21/18 12:00 Temperature 99.4 F Pulse Rate 88 88 94 H Respiratory Rate 13 14 Blood Pressure 128/65 Pulse Oximetry 95 92 L 03/21/18 12:14 03/21/18 16:00 03/21/18 16:51 Temperature 99.4 F Pulse Rate 96 H 95 H 92 H Respiratory Rate 15 26 H 14 Blood Pressure 148/74 H Pulse Oximetry 92 L 89 L 03/21/18 20:00 03/21/18 20:36 03/21/18 23:50 Temperature 99 F Pulse Rate 99 H 92 H 89 Respiratory Rate 22 20 16 Blood Pressure 125/67 Pulse Oximetry 97 93 L 03/22/18 00:00 03/22/18 03:40 03/22/18 04:00 Temperature 99.1 F 98.9 F Pulse Rate 76 67 69 Respiratory Rate 21 16 19 Blood Pressure 161/71 H 149/70 H Pulse Oximetry 93 L Intake & Output 03/21/18 03/22/18 03/22/18 18:59 06:59 18:59 Intake Total 1639 / 1639 3960.625 / 3960.625 Output Total 2900 / 2900 1100 / 1100 Balance -1261 / -1261 2860.625 / 2860.625 Weight 128.5 kg Intake: IV 715 / 715 1109.625 / 1109.625 Sodium Chloride 23.4% Inj 38.5 1009.625 / 1009.625 MEQ In Sterile Water for Inj 1, 000 ML @ 100 mls/hr IV.CONT . Q10H6M TEVIN Rx#:[id number] Zosyn 4.5 GM Premix 4.5 gm In 200 / 200 100 / 100 100 ml @ 200 mls/hr IV.SIG Q6H TEVIN Rx#:[id number] Vancomycin Inj 1,500 MG In NS 515 / 515 Inj 500 ML @ 250 mls/hr IV.SIG Q12H TEVIN Rx#:[id number] Oral 360 / 360 Tube Feeding 324 / 324 Tube Irrigant 400 / 400 Water Bolus Amount 200 / 200 Other 2491 / 2491 Output: Urine 1100 / 1100 Urine Amount (Catheter) 2900 / 2900 Indwelling Urethral Catheter 2900 / 2900 Other: # Bowel Movements 0 0 Result Diagrams: 03/22/18 05:43 03/22/18 05:43 Objective Remarks: GENERAL: 72-year-old male currently on NC SKIN: Warm and dry. Large cabrera HEAD: Atraumatic. Normocephalic. EYES: Pupils equal and round around 3 mm bilaterally and reactive. No scleral icterus. No injection or drainage. ENT: No nasal bleeding or discharge. Mucous membranes pink and moist. NECK: Trachea midline. No JVD. CARDIOVASCULAR: Regular rate and rhythm. S1, S2 no S4. Without murmur RESPIRATORY: Diminished. Coarse rhonchorous the anterior and posterior. Mild end expiratory wheeze. GASTROINTESTINAL: Abdomen obese. Hypoactive bowel sounds appreciated. MUSCULOSKELETAL: Extremities with trace bilateral lower extremity edema. No obvious deformities. NEUROLOGICAL: Alert awake oriented. Follows commands. Moves all 4 extremities spontaneously. Assessment and Plan - Assessment and Plan Plan: Neuro/Psych: Chronic pain syndrome Chronic benzodiazepine use on diazepam 10 mg twice daily as needed Chronic opioid use on morphine sulfate 15 mg p.o. every 8 hours Discontinue fentanyl infusion. Restart home morphine and oxycodone Continue to hold home diazepam PT OOB CV: Paroxysmal atrial fibrillation currently normal sinus rhythm Hypertension Hyperlipidemia Currently on ramipril 20 mg daily, hydralazine 25 mg 3 times daily and diltiazem 30 mg every 6 hours. As needed Nitropaste and labetalol ordered Home medications include amlodipine 5 mg daily, diltiazem 240 mg daily, ramipril 10 mg daily Home medications include fenofibrate 160 g daily and atorvastatin 40 mg daily for dyslipidemia. Home medications digoxin 0.125 mg daily. This has been resumed. Resp: Acute hypoxemic respiratory failure MRSA pneumonia COPD exacerbation Extubated yesterday tolerating well Albuterol/ipratropium aerosols every 4 hours with albuterol aerosols every 2 hours as needed for dyspnea Continue Symbicort 160/4.5 2 puffs twice daily Start Spiriva Continue IV Solu-Medrol See ID section for antibiotic GI: Heart healthy diet Lansoprazole for GI prophylaxis Docusate sodium/senna 1 tablet twice daily for bowel regimen. Polythene glycol 17 g twice daily and mineral oil 15 cc 1 now. Endo: DM Sliding scale insulin to maintain euglycemia Insulin glargine 10 units twice daily Holding canagliflozin 300 mg daily, metformin 1000 mg twice daily and glipizide 10 mg twice daily. Renal: Creatinine currently within normal limits Monitor urine output Accurate I's and O's Levine in critically ill patient Heme: Normocytic anemia Monitor CBC daily. Follow trends ID: MRSA pneumonia Currently on vancomycin, piperacillin/tazobactam and azithromycin since 03/16. Discontinue azithromycin today Sputum 03/16 revealed MRSA. Blood culture 03/16 and no growth to date Influenza negative FEN: Hypernatremia 1/4 normal saline 100 mL/h for 48 hours. Stop 03/23/18 Recheck BMP mag plus in a.m. Access -Utilize peripheral IV. Central line if indicated Prophylaxis -GI -lansoprazole -DVT -SCD/heparin subcu Level 3 Consult hospitalist to assume care am 03/23/18 Code Status: Full
[2018-03-22] MEDS: Morphine Sulfate 15 MG SR Tablet PO SCH ×2 (09:58→17:17)
[2018-03-22] MEDS: Insulin Detemir Inj 1,000 UNIT/10 ML Vial SQ SCH ×2 (10:03→20:35)
[2018-03-22] MEDS: Vancomycin Inj 1,500 MG in Sodium Chlor 0.9% Inj 500 ML IV.SIG SCH (10:03)
[2018-03-22] MEDS: Vancomycin Inj 1,750 MG in Sodium Chlor 0.9% Inj 500 ML IV.SIG SCH (20:36)
[2018-03-22] MEDS: Polyethylene Glycol 3350 17 GM Packet PO SCH ×2 (20:37→21:17)
[2018-03-22] MEDS: Chlorhexidine 0.12% Oral Kit 15 ML UDC OROPHARYNG SCH ×2 (20:37→21:16)
[2018-03-22] MEDS: Hypromellose 0.3% Opth Gel 10 GM Bottle EACH EYE SCH ×2 (20:37→21:16)
[2018-03-22] MEDS: Budesonide-Formoterol 160/4.5 MCG 6 GM Inhaler INH SCH ×2 (22:07→22:08)
[2018-03-22] MEDS: Tiotropium Bromide 18 MCG/ACT Inhaler INH SCH (22:07)
[2018-03-23] MEDS: Morphine Sulfate 15 MG SR Tablet PO SCH ×3 (00:58→18:18)
[2018-03-23] MEDS: Oral Hygiene Kit OROPHARYNG SCH ×4 (00:59→18:18)
[2018-03-23] MEDS: Insulin NovoLOG Aspart Correctional Sugar Inj SQ SCH ×4 (01:07→19:03)
[2018-03-23] MEDS: Piperacil/Tazo 4.5 GM Premix 4.5 GM/100 ML BAG IV.SIG SCH ×4 (01:09→22:50)
[2018-03-23] MEDS: Sodium Chloride 23.4% Inj 38.5 MEQ in Water for Inj, Sterile 1,000 ML IV.CONT SCH ×2 (03:44→04:34)
[2018-03-23 04:19] LABS: Hematocrit 39.4 % (39.0-51.0); Hemoglobin 12.8 gm/dL (13.0-17.0); Mean Corpuscular HGB Conc 32.4 % (32.0-36.0); Mean Corpuscular Hemoglobin 29.6 pg (27.0-34.0); Mean Corpuscular Volume 91.3 fL (80.0-100.0); Mean Platelet Volume 9.4 fL (7.0-11.0); Platelet Count 136 th/mm3 (150-450); Red Blood Count 4.32 mil/mm3 (4.50-5.90); Red Cell Distribution Width 13.4 % (11.6-17.2)
[2018-03-23 04:30] LABS: Alanine Aminotransferase 27 U/L (12-78); Albumin 2.4 g/dL (3.4-5.0); Anion Gap 7 meq/L (5-15); Aspartate Aminotransferase 20 U/L (15-37); Blood Urea Nitrogen 15 mg/dL (7-18); Calcium 8.3 mg/dL (8.5-10.1); Carbon Dioxide 31.2 meq/L (21.0-32.0); Chloride 108 meq/L (98-107); Glomerular Filtration Rate Greater Than 89 mL/min (>89); Glucose,Random 120 mg/dL (74-106); Potassium 4.3 meq/L (3.5-5.1); Sodium 146 meq/L (136-145)
[2018-03-23 04:33] LABS: Alkaline Phosphatase 38 U/L (45-117); Total Protein 5.5 g/dL (6.4-8.2)
--- NOTE | 2018-03-23 05:06 | XR ---
EXAM DATE: 03/23/2018 4:10 AM EDT AGE/SEX: 72 years / Male INDICATIONS: Shortness of breath history of lung cancer. CLINICAL DATA: This is the patient's subsequent encounter. Patient reports that signs and symptoms h ave been present for 1 week and indicates a pain score of 0/10. MEDICAL/SURGICAL HISTORY: None. None. COMPARISON: [facility] – [place], CHEST 1V SINGLE AP, 03/22/2018. . FINDINGS: A single AP portable erect view of the chest is obtained. Mild hazy airspace disease is again noted a t the lung bases appears mildly improved. The heart size remains mildly enlarged. There is scarring i n the right upper lobe. The bony thorax is intact. CONCLUSION: 1. Apparent mild improvement in the hazy airspace disease. 2. Cardiomegaly again noted. Electronically signed by: Fermín Chavarria MD 03/23/2018 5:05 AM EDT
[2018-03-23] MEDS: MethylPREDNISolone Sod Succinate Inj 40 MG/ML Vial IV.PUSH SCH ×2 (05:11→23:23)
[2018-03-23] MEDS: Heparin - SQ 10,000 UNITS/ML Vial SQ SCH ×3 (05:11→23:15)
[2018-03-23] MEDS: hydrALAZINE 25 MG Tablet PO SCH ×3 (08:37→18:18)
[2018-03-23] MEDS: dilTIAZem 30 MG Tablet PO SCH ×4 (08:37→23:14)
[2018-03-23] MEDS: Chlorhexidine 0.12% Oral Kit 15 ML UDC OROPHARYNG SCH ×2 (08:38→23:13)
[2018-03-23] MEDS: Fenofibrate 145 MG Tablet PO SCH (08:38)
[2018-03-23] MEDS: Digoxin 125 MCG Tablet PO SCH (08:38)
[2018-03-23] MEDS: Insulin Detemir Inj 1,000 UNIT/10 ML Vial SQ SCH ×2 (08:39→23:17)
[2018-03-23] MEDS: Ramipril 5 MG Capsule PO SCH (08:39)
[2018-03-23] MEDS: Tiotropium Bromide 18 MCG/ACT Inhaler INH SCH (08:40)
[2018-03-23] MEDS: Polyethylene Glycol 3350 17 GM Packet PO SCH ×2 (08:40→23:19)
[2018-03-23] MEDS: Senna/Docusate Sodium 8.6/50 MG Tablet PO SCH ×2 (08:40→23:14)
[2018-03-23] MEDS: Vancomycin Inj 1,750 MG in Sodium Chlor 0.9% Inj 500 ML IV.SIG SCH ×2 (09:00→23:23)
[2018-03-23] MEDS: Budesonide-Formoterol 160/4.5 MCG 6 GM Inhaler INH SCH ×2 (09:30→23:48)
[2018-03-23] MEDS: Hypromellose 0.3% Opth Gel 10 GM Bottle EACH EYE SCH ×2 (09:30→23:19)
--- NOTE | 2018-03-23 11:18 | P.PNIM ---
Subjective Interval history: Patient reports is feeling much better. Discussed with RN. He is down to 4 L on a nasal cannula. Physical Exam Vital signs: Vital Signs 03/22/18 11:33 03/22/18 12:00 03/22/18 16:00 Temperature 97.8 F 98 F Pulse Rate 78 80 94 H Respiratory Rate 20 25 H 20 Blood Pressure 163/85 H 160/74 H Pulse Oximetry 03/22/18 16:57 03/22/18 20:00 03/22/18 21:00 Temperature 98.5 F Pulse Rate 89 86 86 Respiratory Rate 15 21 Blood Pressure 132/75 Pulse Oximetry 93 L 03/23/18 00:00 03/23/18 01:00 03/23/18 04:00 Temperature 98.3 F 98.7 F Pulse Rate 88 89 88 Respiratory Rate 20 21 Blood Pressure 130/75 137/63 Pulse Oximetry 91 L 91 L 03/23/18 04:13 03/23/18 05:00 03/23/18 08:00 Temperature 98.5 F Pulse Rate 86 90 66 Respiratory Rate 18 20 Blood Pressure 140/67 Pulse Oximetry 93 L 03/23/18 08:26 03/23/18 09:00 03/23/18 09:30 Temperature Pulse Rate 84 66 Respiratory Rate 16 20 Blood Pressure Pulse Oximetry 93 L Intake & Output 03/22/18 03/23/18 03/23/18 18:59 06:59 18:59 Intake Total 920 / 920 2567.125 / 2567.125 Output Total 2275 / 2275 2625 / 2625 Balance -1355 / -1355 -57.875 / -57.875 Weight 124.7 kg Intake: IV 200 / 200 1727.125 / 1727.125 Sodium Chloride 23.4% Inj 38.5 1009.625 / 1009.625 MEQ In Sterile Water for Inj 1, 000 ML @ 100 mls/hr IV.CONT . Q10H6M TEVIN Rx#:[id number] Zosyn 4.5 GM Premix 4.5 gm In 200 / 200 200 / 200 100 ml @ 200 mls/hr IV.SIG Q6H TEVIN Rx#:[id number] Vancomycin Inj 1,750 MG In NS 517.5 / 517.5 Inj 500 ML @ 250 mls/hr IV.SIG Q12H TEVIN Rx#:[id number] Oral 720 / 720 840 / 840 Output: Urine 300 / 300 Urine Amount (Catheter) 1974 / 2624 Indwelling Urethral Catheter 1974 / 2624 Other: # Bowel Movements 0 0 Narrative: GENERAL: Obese male in no apparent distress. CARDIOVASCULAR: Normal rate and regular rhythm without murmurs, gallops, or rubs. RESPIRATORY: Good respiratory efforts. Air movement is fair. Diminished breath sounds bilaterally at the bases. GASTROINTESTINAL: Abdomen soft, non-tender, non-distended. Normal active bowel sounds MUSCULOSKELETAL: Extremities without cyanosis, or edema. NEURO: Alert & Oriented x4 to person, place, time, situation. Moves all ext x4 PSYCH: Appropriate mood and affect. - Urinary Catheter Management Indwelling Urethral Catheter Cath placed during this visit: yes, but has since been removed by the nurse Reason for continuing: Hourly intake/output Insertion date: 03/17/18 Insertion time: 02:00 Removal date: 03/21/18 Removal time: 11:55 Results - Labs CBC & Chem 7: 03/23/18 03:40 03/23/18 03:40 Laboratory Results - last 24 hr 03/22/18 03/22/18 03/22/18 11:59 17:07 20:28 WBC RBC Hgb Hct MCV MCH MCHC RDW Plt Count MPV Sodium Potassium Chloride Carbon Dioxide Anion Gap BUN Creatinine Estimated GFR POC Glucose 139 H 281 H 158 H Random Glucose Calcium Total Bilirubin AST ALT Alkaline Phosphatase Total Protein Albumin 03/23/18 03/23/18 03/23/18 01:04 03:40 03:40 WBC 7.0 RBC 4.32 L Hgb 12.8 L Hct 39.4 MCV 91.3 MCH 29.6 MCHC 32.4 RDW 13.4 Plt Count 136 L MPV 9.4 Sodium 146 H Potassium 4.3 Chloride 108 H Carbon Dioxide 31.2 Anion Gap 7 BUN 15 Creatinine 0.35 L Estimated GFR Greater than 89 POC Glucose 148 H Random Glucose 120 H Calcium 8.3 L Total Bilirubin 0.5 AST 20 ALT 27 Alkaline Phosphatase 38 L Total Protein 5.5 L Albumin 2.4 L 03/23/18 03/23/18 05:21 09:03 WBC RBC Hgb Hct MCV MCH MCHC RDW Plt Count MPV Sodium Potassium Chloride Carbon Dioxide Anion Gap BUN Creatinine Estimated GFR POC Glucose 158 H 120 H Random Glucose Calcium Total Bilirubin AST ALT Alkaline Phosphatase Total Protein Albumin Microbiology 03/16/18 23:55 Blood - Peripheral Aerobic Blood Culture - Final No growth in 5 days 03/16/18 23:55 Blood - Peripheral Anaerobic Blood Culture - Final No growth in 5 days 03/17/18 00:00 Blood - Peripheral Aerobic Blood Culture - Final No growth in 5 days 03/17/18 00:00 Blood - Peripheral Anaerobic Blood Culture - Final No growth in 5 days - Imaging Impressions Chest X-Ray 03/23/18 06:00 CONCLUSION: 1. Apparent mild improvement in the hazy airspace disease. 2. Cardiomegaly again noted. Assessment and Plan - Plan 72-year-old male with MRSA pneumonia, COPD exacerbation admitted in respiratory failure, intubated in the emergency room. Acute hypoxemic respiratory failure MRSA pneumonia COPD exacerbation Extubated 03/21/18 Albuterol/ipratropium aerosols every 4 hours with albuterol aerosols every 2 hours as needed for dyspnea Continue Symbicort 160/4.5 2 puffs twice daily Start Spiriva Start weaning IV Solu-Medrol Sputum 03/16 revealed MRSA. On broad-spectrum antibiotics including vancomycin and Zosyn. Completed azithromycin. Chest x-ray shows improvement. Continue IV antibiotics for 1 more day with plan to transition to Bactrim for at least another 5 days given the severity of his symptoms on presentation and comorbid conditions. Continue to wean down oxygen. He normally uses 2 L at home. Chronic pain syndrome Chronic benzodiazepine use on diazepam 10 mg twice daily as needed Chronic opioid use on morphine sulfate 15 mg p.o. every 8 hours Continue home morphine and oxycodone Continue to hold home diazepam PT OOB Paroxysmal atrial fibrillation currently normal sinus rhythm Hypertension Hyperlipidemia Currently on ramipril 20 mg daily, hydralazine 25 mg 3 times daily and diltiazem 30 mg every 6 hours. As needed Nitropaste and labetalol ordered Home medications include amlodipine 5 mg daily, diltiazem 240 mg daily, ramipril 10 mg daily Home medications include fenofibrate 160 g daily and atorvastatin 40 mg daily for dyslipidemia. Home medications digoxin 0.125 mg daily. This has been resumed. DM Sliding scale insulin to maintain euglycemia Insulin glargine 10 units twice daily Holding canagliflozin 300 mg daily, metformin 1000 mg twice daily and glipizide 10 mg twice daily. Hypernatremia Status post 1/4 normal saline 100 mL/h for 48 hours. Stopped 03/23/18 Much improved. Recheck BMP in a.m. Prophylaxis -GI -lansoprazole -DVT -SCD/heparin subcu Discharge Planning: Transfer to floor today. Continue PT. Wean down oxygen and steroids. Anticipate discharge in 2-3 days.
[2018-03-24] MEDS: Morphine Sulfate 15 MG SR Tablet PO SCH ×3 (00:05→18:02)
[2018-03-24] MEDS: Oral Hygiene Kit OROPHARYNG SCH ×4 (00:06→17:17)
[2018-03-24] MEDS: Piperacil/Tazo 4.5 GM Premix 4.5 GM/100 ML BAG IV.SIG SCH ×3 (02:42→13:40)
[2018-03-24] MEDS: Heparin - SQ 10,000 UNITS/ML Vial SQ SCH ×3 (06:17→21:33)
[2018-03-24] MEDS: Insulin NovoLOG Aspart Correctional Sugar Inj SQ SCH ×4 (06:19→18:02)
[2018-03-24] MEDS ORDERED: Pharmacy Ordered Lab Info OTHER ONE (07:45)
[2018-03-24 09:14] LABS: Anion Gap 6 meq/L (5-15); Blood Urea Nitrogen 16 mg/dL (7-18); Calcium 8.2 mg/dL (8.5-10.1); Carbon Dioxide 30.5 meq/L (21.0-32.0); Chloride 108 meq/L (98-107); Glomerular Filtration Rate Greater Than 89 mL/min (>89); Glucose,Random 112 mg/dL (74-106); Sodium 144 meq/L (136-145)
[2018-03-24] MEDS: Senna/Docusate Sodium 8.6/50 MG Tablet PO SCH ×2 (11:19→20:50)
[2018-03-24] MEDS: hydrALAZINE 25 MG Tablet PO SCH ×3 (11:19→18:02)
[2018-03-24] MEDS: MethylPREDNISolone Sod Succinate Inj 40 MG/ML Vial IV.PUSH SCH ×2 (11:19→20:52)
[2018-03-24] MEDS: Digoxin 125 MCG Tablet PO SCH (11:20)
[2018-03-24] MEDS: dilTIAZem 30 MG Tablet PO SCH ×4 (11:20→20:50)
[2018-03-24] MEDS: Fenofibrate 145 MG Tablet PO SCH (11:21)
[2018-03-24] MEDS: Tiotropium Bromide 18 MCG/ACT Inhaler INH SCH (11:21)
[2018-03-24] MEDS: Budesonide-Formoterol 160/4.5 MCG 6 GM Inhaler INH SCH ×2 (11:22→20:59)
[2018-03-24] MEDS: Hypromellose 0.3% Opth Gel 10 GM Bottle EACH EYE SCH ×2 (11:22→20:51)
[2018-03-24] MEDS: Ramipril 5 MG Capsule PO SCH (11:22)
[2018-03-24] MEDS: Polyethylene Glycol 3350 17 GM Packet PO SCH ×2 (11:22→20:50)
[2018-03-24] MEDS: Insulin Detemir Inj 1,000 UNIT/10 ML Vial SQ SCH ×2 (11:22→20:51)
[2018-03-24] MEDS: Chlorhexidine 0.12% Oral Kit 15 ML UDC OROPHARYNG SCH ×2 (11:28→20:47)
--- NOTE | 2018-03-24 16:20 | P.PN ---
Physical Exam Vital signs: Vital Signs 03/23/18 18:00 03/23/18 19:47 03/23/18 20:00 Temperature 97.8 F Pulse Rate 101 H 82 Respiratory Rate 20 18 Blood Pressure 151/69 H Pulse Oximetry 92 L 03/23/18 20:46 03/23/18 23:40 03/23/18 23:45 Temperature Pulse Rate 94 H 93 H Respiratory Rate 17 17 Blood Pressure Pulse Oximetry 92 L 03/24/18 00:00 03/24/18 03:26 03/24/18 03:57 Temperature 97.8 F Pulse Rate 93 H 77 94 H Respiratory Rate 18 17 Blood Pressure 142/62 H Pulse Oximetry 92 L 03/24/18 04:00 03/24/18 08:00 03/24/18 08:17 Temperature 98.1 F 98.6 F Pulse Rate 98 H 94 H 83 Respiratory Rate 18 18 12 Blood Pressure 150/85 H 147/82 H Pulse Oximetry 91 L 92 L 92 L 03/24/18 11:34 03/24/18 12:00 03/24/18 15:43 Temperature 98.2 F Pulse Rate 94 H 103 H 100 H Respiratory Rate 12 18 12 Blood Pressure 140/64 Pulse Oximetry 87 L Intake & Output 03/23/18 03/24/18 03/24/18 18:59 06:59 18:59 Intake Total 2309.625 / 2309.625 1160 / 1160 100 / 100 Output Total 2850 / 2850 3350 / 3350 Balance -540.375 / -540.375 -2190 / -2190 100 / 100 Weight 121.9 kg 123.7 kg Intake: IV 1109.625 / 1109.625 200 / 200 100 / 100 Sodium Chloride 23.4% Inj 38.5 1009.625 / 1009.625 MEQ In Sterile Water for Inj 1, 000 ML @ 100 mls/hr IV.CONT . Q10H6M TEVIN Rx#:[id number] Zosyn 4.5 GM Premix 4.5 gm In 100 / 100 200 / 200 100 / 100 100 ml @ 200 mls/hr IV.SIG Q6H TEVIN Rx#:[id number] Oral 1200 / 1200 960 / 960 Output: Urine 3350 / 3350 Urine Amount (Catheter) 2850 / 2850 Indwelling Urethral Catheter 2850 / 2850 Other: # Bowel Movements 0 - Urinary Catheter Management Indwelling Urethral Catheter Cath placed during this visit: yes, but has since been removed by the nurse Reason for continuing: Hourly intake/output Insertion date: 03/17/18 Insertion time: 02:00 Removal date: 03/21/18 Removal time: 11:55 Results - Labs CBC & Chem 7: 03/23/18 03:40 03/24/18 07:28 Laboratory Results - last 24 hr 03/23/18 03/23/18 03/24/18 18:21 23:06 06:16 Sodium Potassium Chloride Carbon Dioxide Anion Gap BUN Creatinine Estimated GFR POC Glucose 182 H 149 H 153 H Random Glucose Calcium Vancomycin Trough 03/24/18 03/24/18 03/24/18 07:28 08:00 12:47 Sodium 144 Potassium 4.0 Chloride 108 H Carbon Dioxide 30.5 Anion Gap 6 BUN 16 Creatinine 0.39 L Estimated GFR Greater than 89 POC Glucose 196 H Random Glucose 112 H Calcium 8.2 L Vancomycin Trough 13.0 H Assessment and Plan - Plan 72-year-old male with MRSA pneumonia, COPD exacerbation admitted in respiratory failure, intubated in the emergency room. MRSA pneumonia w/ COPD Exacerbation, Respiratory Failure Intubated 03/17/2015 extubated 03/21/18 Continue Symbicort 160/4.5 2 puffs twice daily, duo nebs every 4 as needed, Spiriva, Solu-Medrol Sputum 03/16 revealed MRSA. On broad-spectrum antibiotics including vancomycin and Zosyn. Completed azithromycin. Chest x-ray showing improvement. Continue Bactrim DS for 5 more days Continue to wean down oxygen to target of 2 L nasal cannula (home dose). Urinary retention Levine placed in ICU for urinary urinary retention Start Flomax for 2-3 days and attempt to remove Levine Check PSA with a.m. labs Paroxysmal atrial fibrillation Currently in normal sinus rhythm Continue diltiazem, digoxin Chronic pain syndrome Continue home morphine and oxycodone Continue to hold home diazepam Hypertension, hyperlipidemia Continue home dose ramipril, hydralazine, diltiazem, amlodipine Continue home dose fenofibrate, atorvastatin DM Type 2 diabetes Sliding scale insulin with Accu-Cheks Continue insulin glargine 10 units twice daily Metformin, glipizide, canagliflozin all held Diabetic diet DVT Prophylaxis Heparin Discharge planning Patient is very weak, continue to wean steroids, plan for rehab discharge
[2018-03-24] MEDS ORDERED: Vancomycin Inj 2,000 MG in Sodium Chlor 0.9% Inj 500 ML IV.SIG SCH (17:00)
[2018-03-25] MEDS: Insulin NovoLOG Aspart Correctional Sugar Inj SQ SCH ×5 (00:18→23:59)
[2018-03-25] MEDS: Oral Hygiene Kit OROPHARYNG SCH ×4 (00:19→17:47)
[2018-03-25] MEDS: Morphine Sulfate 15 MG SR Tablet PO SCH ×3 (01:57→17:48)
[2018-03-25] MEDS: Heparin - SQ 10,000 UNITS/ML Vial SQ SCH ×3 (05:48→21:30)
[2018-03-25 09:36] LABS: Hematocrit 39.8 % (39.0-51.0); Hemoglobin 12.9 gm/dL (13.0-17.0); Mean Corpuscular HGB Conc 32.4 % (32.0-36.0); Mean Corpuscular Hemoglobin 29.9 pg (27.0-34.0); Mean Corpuscular Volume 92.5 fL (80.0-100.0); Mean Platelet Volume 9.3 fL (7.0-11.0); Platelet Count 135 th/mm3 (150-450); Red Blood Count 4.31 mil/mm3 (4.50-5.90); Red Cell Distribution Width 14.1 % (11.6-17.2); White Blood Count 7.1 th/mm3 (4.0-11.0)
[2018-03-25] MEDS: Chlorhexidine 0.12% Oral Kit 15 ML UDC OROPHARYNG SCH ×2 (09:52→21:32)
[2018-03-25] MEDS: Senna/Docusate Sodium 8.6/50 MG Tablet PO SCH ×2 (09:55→21:31)
[2018-03-25] MEDS: dilTIAZem 30 MG Tablet PO SCH ×4 (09:55→21:31)
[2018-03-25] MEDS: Fenofibrate 145 MG Tablet PO SCH (09:56)
[2018-03-25] MEDS: Digoxin 125 MCG Tablet PO SCH (09:56)
[2018-03-25] MEDS: hydrALAZINE 25 MG Tablet PO SCH ×3 (09:56→17:48)
[2018-03-25] MEDS: Insulin Detemir Inj 1,000 UNIT/10 ML Vial SQ SCH ×2 (09:56→21:32)
[2018-03-25] MEDS: Ramipril 5 MG Capsule PO SCH (09:57)
[2018-03-25] MEDS: Tiotropium Bromide 18 MCG/ACT Inhaler INH SCH (09:57)
[2018-03-25] MEDS: Budesonide-Formoterol 160/4.5 MCG 6 GM Inhaler INH SCH ×2 (09:57→21:35)
[2018-03-25] MEDS: MethylPREDNISolone Sod Succinate Inj 40 MG/ML Vial IV.PUSH SCH (09:57)
[2018-03-25] MEDS: Polyethylene Glycol 3350 17 GM Packet PO SCH ×2 (09:58→21:35)
[2018-03-25] MEDS: Hypromellose 0.3% Opth Gel 10 GM Bottle EACH EYE SCH ×2 (09:58→21:32)
[2018-03-25 10:01] LABS: Anion Gap 9 meq/L (5-15); Blood Urea Nitrogen 16 mg/dL (7-18); Calcium 8.7 mg/dL (8.5-10.1); Carbon Dioxide 29.2 meq/L (21.0-32.0); Chloride 106 meq/L (98-107); Glomerular Filtration Rate Greater Than 89 mL/min (>89); Glucose,Random 125 mg/dL (74-106); Potassium 3.9 meq/L (3.5-5.1); Sodium 144 meq/L (136-145)
--- NOTE | 2018-03-25 11:23 | P.PNIM ---
Physical Exam Vital signs: Vital Signs 03/24/18 11:34 03/24/18 12:00 03/24/18 15:00 Temperature 98.2 F Pulse Rate 94 H 103 H 94 H Respiratory Rate 12 18 Blood Pressure 140/64 Pulse Oximetry 87 L 03/24/18 15:43 03/24/18 16:00 03/24/18 19:00 Temperature 97.4 F L Pulse Rate 100 H 99 H 104 H Respiratory Rate 12 18 Blood Pressure 138/73 Pulse Oximetry 90 L 03/24/18 20:00 03/24/18 23:00 03/24/18 23:51 Temperature 98.1 F Pulse Rate 97 H 74 Respiratory Rate 20 Blood Pressure 141/69 H Pulse Oximetry 92 L 92 L 03/25/18 00:00 03/25/18 03:00 03/25/18 04:00 Temperature 98.4 F 97.9 F Pulse Rate 75 99 H 75 Respiratory Rate 19 19 Blood Pressure 157/75 H 161/78 H Pulse Oximetry 92 L 93 L 03/25/18 08:00 Temperature 97.3 F L Pulse Rate 102 H Respiratory Rate 22 Blood Pressure 128/80 Pulse Oximetry 94 L Intake & Output 03/24/18 03/25/18 03/25/18 18:59 06:59 18:59 Intake Total 340 / 340 Output Total 975 / 975 1300 / 1300 Balance -635 / -635 -1300 / -1300 Weight 122.9 kg Intake: IV 100 / 100 Zosyn 4.5 GM Premix 4.5 gm In 100 / 100 100 ml @ 200 mls/hr IV.SIG Q6H TEVIN Rx#:[id number] Oral 240 / 240 Output: Urine 975 / 975 1300 / 1300 Other: # Bowel Movements 0 - Urinary Catheter Management Indwelling Urethral Catheter Cath placed during this visit: yes, but has since been removed by the nurse Reason for continuing: Acute urinary retention Insertion date: 03/17/18 Insertion time: 02:00 Removal date: 03/21/18 Removal time: 11:55 Results - Labs CBC & Chem 7: 03/25/18 08:50 03/25/18 08:50 Laboratory Results - last 24 hr 03/24/18 03/24/18 03/24/18 12:47 16:56 23:51 WBC RBC Hgb Hct MCV MCH MCHC RDW Plt Count MPV Sodium Potassium Chloride Carbon Dioxide Anion Gap BUN Creatinine Estimated GFR POC Glucose 196 H 237 H 135 H Random Glucose Calcium 03/25/18 03/25/18 08:50 08:50 WBC 7.1 RBC 4.31 L Hgb 12.9 L Hct 39.8 MCV 92.5 MCH 29.9 MCHC 32.4 RDW 14.1 Plt Count 135 L MPV 9.3 Sodium 144 Potassium 3.9 Chloride 106 Carbon Dioxide 29.2 Anion Gap 9 BUN 16 Creatinine 0.42 L Estimated GFR Greater than 89 POC Glucose Random Glucose 125 H Calcium 8.7 Assessment and Plan - Plan 72-year-old male with MRSA pneumonia, COPD exacerbation admitted in respiratory failure, intubated in the emergency room. MRSA pneumonia w/ COPD Exacerbation, Respiratory Failure Intubated 03/17/2015 extubated 03/21/18 Continue Symbicort Continue Spiriva Transition Solu-Medrol to prednisone Continue Bactrim and Levaquin Probiotics Urinary retention Void trial 03/25/2018 Paroxysmal atrial fibrillation Follow on telemetry Continue diltiazem, digoxin Chronic pain syndrome Continue home morphine and oxycodone Continue to hold home diazepam Hypertension, hyperlipidemia Blood pressure stable continue home dose ramipril, hydralazine, diltiazem, amlodipine Continue home dose fenofibrate, atorvastatin Diabetes mellitus type 2 Follow blood sugars Insulin sliding scale Diabetic diet Continue insulin glargine 10 units twice daily Metformin, glipizide, canagliflozin all held DVT Prophylaxis Heparin Discharge planning Transition to p.o. treatments continue physical therapy Possible discharge tomorrow if patient ambulatory
[2018-03-25] MEDS: Lactobacillus Acidophilus/L. Spores Tablet PO SCH ×2 (13:02→17:48)
[2018-03-25] MEDS: predniSONE 20 MG Tablet PO SCH (21:31)
[2018-03-26] MEDS: Oral Hygiene Kit OROPHARYNG SCH ×2 (03:41)
[2018-03-26] MEDS ORDERED: Pharmacy Ordered Lab Info OTHER SCH (04:45)
[2018-03-26] MEDS: Heparin - SQ 10,000 UNITS/ML Vial SQ SCH (05:16)
[2018-03-26] MEDS: Insulin NovoLOG Aspart Correctional Sugar Inj SQ SCH (05:16)
[2018-03-26] MEDS ORDERED: levoFLOXacin 750 MG Tablet PO SCH (09:00)
[2018-03-26] MEDS: Senna/Docusate Sodium 8.6/50 MG Tablet PO SCH (09:24)
[2018-03-26] MEDS: Polyethylene Glycol 3350 17 GM Packet PO SCH (09:24)
[2018-03-26] MEDS: Lactobacillus Acidophilus/L. Spores Tablet PO SCH (09:25)
[2018-03-26] MEDS: hydrALAZINE 25 MG Tablet PO SCH (09:25)
[2018-03-26] MEDS: predniSONE 20 MG Tablet PO SCH (09:25)
[2018-03-26] MEDS: Ramipril 5 MG Capsule PO SCH (09:25)
[2018-03-26] MEDS: Fenofibrate 145 MG Tablet PO SCH (09:26)
[2018-03-26] MEDS: Digoxin 125 MCG Tablet PO SCH (09:26)
[2018-03-26] MEDS: dilTIAZem 30 MG Tablet PO SCH (09:26)
[2018-03-26] MEDS: Morphine Sulfate 15 MG SR Tablet PO SCH ×2 (09:26)
[2018-03-26] MEDS: Insulin Detemir Inj 1,000 UNIT/10 ML Vial SQ SCH (09:27)
[2018-03-26] MEDS: Hypromellose 0.3% Opth Gel 10 GM Bottle EACH EYE SCH (09:27)
[2018-03-26] MEDS: Chlorhexidine 0.12% Oral Kit 15 ML UDC OROPHARYNG SCH (09:27)
[2018-03-26] MEDS: Tiotropium Bromide 18 MCG/ACT Inhaler INH SCH (09:27)
[2018-03-26] MEDS: Budesonide-Formoterol 160/4.5 MCG 6 GM Inhaler INH SCH (09:27)
--- NOTE | 2018-03-26 11:21 | P.DS ---
Date of admission: 03/17/18 01:28 Primary care physician: Parviz Covington MD Brief History from admission: 72-year-old male with history of severe COPD presents with 1 hour history of shortness of breath. He denied any other concurrent complaints . History is limited given clinical acuity. Initial room air sats were 60 and the patient was intubated by ED attending for respiratory failure. DS: Medications - Discharge Medications Prescriptions: acidophilus-sporogenes [Acidophilus Ex Str (L. sporog)] 1 tab PO TID 10 Days # 30 tab hydralazine 25 mg PO TID #90 tab levofloxacin 750 mg PO DAILY #1 tab magnesium hydroxide [Milk of Magnesia] 30 ml PO Q12H PRN #300 ml PRN Reason: Mild Constipation methylprednisolone [Medrol (Aldo)] 0 tab PO PER PKG DIR #1 pack oxycodone-acetaminophen [Percocet] 1 tab PO Q8H PRN #15 tab PRN Reason: Pain sulfamethoxazole-trimethoprim 1 tab PO Q12HR 7 Days #14 tab tamsulosin 0.4 mg PO DAILY #30 cap DS: Summary Hospital Course: Mr. Alcantar is a 72-year-old male. He was admitted secondary to respiratory distress and failure which were related to pneumonia and COPD. 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 He has no history of smoking. The patient initially failed BiPAP and was intubated and remained intubated on mechanical ventilation for 3 days before extubation. From this point forward he has been gradually improving. His respiratory status is returning towards baseline but his physical abilities are lacking. At this point he is medically clear and stable for discharge to inpatient rehabilitation today. - Time Spent with Patient Total time spent providing and/or coordinating discharge services: Greater than 30 minutes Exam Vital signs: Vital Signs 03/25/18 12:00 03/25/18 16:00 03/25/18 20:00 Temperature 98.4 F 97.9 F 98.6 F Pulse Rate 101 H 95 H 99 H Respiratory Rate 22 22 16 Blood Pressure 110/72 161/72 H 148/67 H Pulse Oximetry 90 L 94 L 93 L 03/26/18 00:00 03/26/18 04:00 03/26/18 08:00 Temperature 97.8 F 98.1 F 98.1 F Pulse Rate 81 92 H 65 Respiratory Rate 19 19 18 Blood Pressure 128/70 152/88 H 157/77 H Pulse Oximetry 91 L 94 L 94 L Intake & Output 03/25/18 03/26/18 03/26/18 18:59 06:59 18:59 Intake Total 960 / 960 Output Total 1475 / 1475 Balance -515 / -515 -3 / -3 Weight 119.3 kg Intake: Oral 960 / 960 Output: Urine 1475 / 1475 Other: Date of Last Bowel Movement 03/25/18 03/25/18 03/25/18 # Bowel Movements 2 Results Procedures completed during hospitalization: Intubation with mechanical ventilation Labs on day of discharge: Labs from last 24 hours 03/26/18 03/25/18 03/25/18 05:03 23:35 17:50 POC Glucose 181 H 193 H 155 H 03/25/18 11:39 POC Glucose 143 H - Impressions ITS Impressions Chest X-Ray 03/23/18 06:00 CONCLUSION: 1. Apparent mild improvement in the hazy airspace disease. 2. Cardiomegaly again noted. Discharge Plan - Discharge Disposition Patient Disposition: [facility] Rehab Inpatient - Discharge Condition Condition: Stable - Discharge Order Discharge Orders: Discharge Order (Routine); Ordered 03/26/18 Ordered By: Kendall Martinez - Discharge Details Anticipated Discharge Date: 03/26/18 - Physicians Team Primary Care Provider: Parviz Covington Attending Provider: Kendall Martinez
[2018-03-28 17:51] VITALS: BP 148/72; TEMP 98
[2018-03-28 17:59] VITALS: PULSE 66
[2018-03-28 18:14] VITALS: RESP 18; O2SAT 95
== END 2018-03-26 11:07 ==
LOC: NEPE 23:45 → NEDA 03-17 01:28 → N03 03-17 03:40 → N04 03-23 16:35
PROVIDERS: ADMIT Hospitalist; ATTEND Hospitalist

== ENCOUNTER 2018-04-17 13:15 | Inpatient (IN) ==
--- NOTE | 2018-04-17 13:57 | ED ---
HPI General Stated complaint: Resp Time Seen by Provider: 04/17/18 13:32 History of Present Illness HPI narrative: Patient presents to the emergency department for shortness of breath. Currently he was here approximately 2 weeks ago with COPD exacerbation and pneumonia and was intubated. Uses 4 L of oxygen at home and the home health nurse found him today satting in the mid 80s peer he was given 40 mg of Lasix and put on CPAP by fire and rescue. They said that did not help. EVAC gave him 125 mg IV Solu-Medrol and nebs and increase his sats to 93% with a nebs. The bladder treatments were stopped his sats were in the 80s. Satting 85 -80% via nasal cannula on 6 L of O2. Port and he was he had ultrasound done on that were negative for bilateral DVTs. Doctor placed him on Keflex for cellulitis. Denies chest pain, fever, vomiting, and states that he is agreeable to being intubated if need be. Related Data Home Medications Medication Instructions Recorded Confirmed morphine 15 mg PO Q8H 03/08/18 04/17/18 albuterol sulfate [Ventolin HFA] 1 puff INHALATION Q4-6H PRN 04/17/18 04/17/18 amlodipine [Norvasc] 5 mg PO DAILY 04/17/18 04/17/18 cephalexin [Keflex] 500 mg PO QID 04/17/18 04/17/18 diazepam [Valium] 10 mg PO BID PRN 04/17/18 04/17/18 furosemide [Lasix] 40 mg PO DAILY 04/17/18 04/17/18 glipizide 10 mg PO DAILY 04/17/18 04/17/18 liraglutide [Victoza 2-Aldo] 1.8 mg SUB-Q DAILY 04/17/18 04/17/18 metformin 2,000 mg PO DAILY 04/17/18 04/17/18 mometasone [Nasonex] 1 spray INTRANASAL BID 04/17/18 04/17/18 Previous Rx's Medication Instructions Recorded oxycodone-acetaminophen [Percocet] 1 tab PO Q8H PRN #15 tab 03/26/18 albuterol sulfate 0.63 mg INHALATION Q4-6H PRN #100 04/05/18 amp aspirin 81 mg PO DAILY #30 tab 04/05/18 atorvastatin [Lipitor] 40 mg PO DAILY #30 tab 04/05/18 canagliflozin [Invokana] 300 mg PO DAILY #30 tab 04/05/18 digoxin 0.125 mg PO DAILY #30 tab 04/05/18 diltiazem HCl 240 mg PO DAILY #30 cap 04/05/18 fluticasone-salmeterol [Advair 2 puff INHALATION DAILY #1 disk 04/05/18 Diskus] ipratropium bromide 1 puff INHALATION Q6H #1 inh 04/05/18 prednisone 2.5 mg PO DAILY #15 tab 04/05/18 ramipril [Altace] 20 mg PO DAILY #60 cap 04/05/18 tiotropium bromide [Spiriva with 18 mcg INH DAILY #1 inh 04/05/18 HandiHaler] Allergies Allergy/AdvReac Type Severity Reaction Status Date / Time No Known Allergies Allergy Verified 03/26/18 13:40 Review of Systems ROS: all other systems reviewed are negative COUNT INCLUDES THE [facility] Medical History Medical History Anxiety (Acute) Chronic pain (Acute) End stage COPD (Acute) Hypertension (Acute) Diabetes (Acute) Afib (Acute) Surgical History Surgical History History of lumbar laminectomy (Acute) No history of previous surgery (Acute) Family History Family History Sister Family history of diabetes mellitus Renal failure Father Family history of hypertension Mother Family history of hypertension Social History Social History Substance History: No History of Abuse Second Hand Smoke Exposure: No Smoking Status: Never smoker How Often Do You Have a Drink Containing Alcohol: Never Hx Recent Travel: No Recent Travel in [facility] within the Last 8 Weeks: No Recent Out of Country Travel within the Last 8 Weeks: No Immunization History Tetanus Immunization: <5 Years Hx Influenza Vaccine This Season: Yes Exam Narrative Exam Narrative: GENERAL: Mild respiratory distress on exam. SKIN: Focused skin assessment warm/dry. HEAD: Atraumatic. Normocephalic. EYES: Pupils equal and round. No scleral icterus. No injection or drainage. ENT: No nasal bleeding or discharge. Mucous membranes pink and moist. NECK: Trachea midline. No JVD. CARDIOVASCULAR: Regular rate and rhythm. No murmur appreciated. RESPIRATORY: Expiratory wheezing bilaterally. GASTROINTESTINAL: Abdomen soft, non-tender, nondistended. Hepatic and splenic margins not palpable. MUSCULOSKELETAL: No obvious deformities. No clubbing. No cyanosis. Pitting bilateral lower extremity edema, erythematous bilat LE. NEUROLOGICAL: Awake and alert. No obvious cranial nerve deficits. Motor grossly within normal limits. Normal speech. PSYCHIATRIC: Appropriate mood and affect; insight and judgment normal. Course Initial Documented Vital Signs Pulse Rate 109 H 04/17/18 13:26 Respiratory Rate 26 H 04/17/18 13:26 Blood Pressure 155/76 H 04/17/18 13:26 Pulse Oximetry 86 L 04/17/18 13:26 Last Documented Vital Signs Temperature 98.4 F 04/17/18 17:00 Pulse Rate 110 H 04/17/18 17:50 Respiratory Rate 15 04/17/18 17:50 Blood Pressure 141/70 H 04/17/18 17:00 Pulse Oximetry 92 L 04/17/18 17:20 Critical Care Time Critical Care Time: Yes Total Critical Care Time: 30 Attestation: Aggregate critical care time was 30 minutes. Time to perform other separately billable procedures was not included in the critical care time. My time did not include minutes spent treating any other patients simultaneously or on activities that did not directly contribute to the patient's treatment. The services I provided to this patient were to treat and/or prevent clinically significant deterioration that could result in: respiratory failure, cardiac arrest, , increased morbidity I provided critical care services requiring my management, as noted below: Chart data review, documentation time, medication orders and management, vital sign assessments/reviewing monitor data, ordering and reviewing lab tests, ordering and interpreting/reviewing x-rays and diagnostic studies, care of the patient and discussion of the patient with the admitting physicians. Medical Decision Making MDM Narrative Medical decision making narrative: Patient presents to the emergency department for hypoxia and dyspnea. Patient placed on phototypesetting equipment monitor, continuous pulse ox , and IV access obtained. ABG, chest x-ray, EKG, and labs ordered. Patient also placed on BiPAP and given duo nebs in the ER. CTA chest: CONCLUSION:1. Limited CT PE examination despite repeat scanning.2. The pulmonary arteries are visualized to the proximal segmental level without evidence for pulmonary embolism. More distal segmental and subsegmental branches are inadequately visualized for definitive evaluation.3. Main pulmonary artery is prominent and consistent with some degree of pulmonary artery hypertension.4. Dense airspace consolidation with associated volume loss in the lower lobes, right greater than left and inferior right middle lobe. Differential considerations include aspiration and pneumonia in the appropriate clinical setting.5. Solitary prominent right hilar node measuring up to 10 mm. This is very nonspecific and may be reactive/infectious in etiology. CXR: FINDINGS: Scattered atelectatic changes are noted involving the lungs bilaterally and are stable. There is persistent elevation of the right hemidiaphragm. The heart is stable. There is no significant change compared to .CONCLUSION: No significant change compared 04/03/2018. Labs: decrease hgb/HCT; increase CO2, Medical Screen Exam Complete: Yes Emergency Medical Condition: Yes Differential Diagnosis Differential Diagnosis: COPD exacerbation, CHF, pneumonia, pulmonary edema, OH Lab Data Result diagrams: 04/17/18 14:03 04/17/18 14:03 Lab Results 04/17/18 04/17/18 04/17/18 Range/Units 14:03 14:03 14:03 WBC 6.8 (4.0-11.0) th/mm3 RBC 3.73 L (4.50-5.90) mil/mm3 Hgb 11.4 L (13.0-17.0) gm/dL Hct 35.6 L (39.0-51.0) % MCV 95.3 (80.0-100.0) fL MCH 30.4 (27.0-34.0) pg MCHC 31.9 L (32.0-36.0) % RDW 14.6 (11.6-17.2) % Plt Count 211 D (150-450) th/mm3 MPV 8.3 (7.0-11.0) fL Neut % (Auto) 83.0 H (16.0-70.0) % Lymph % (Auto) 11.3 (9.0-44.0) % Thomas % (Auto) 4.4 (0.0-8.0) % Eos % (Auto) 0.9 (0.0-4.0) % Baso % (Auto) 0.4 (0.0-2.0) % Neut # (Auto) 5.6 (1.8-7.7) th/mm3 Lymph # (Auto) 0.8 L (1.0-4.8) th/mm3 Thomas # (Auto) 0.3 (0.0-0.9) th/mm3 Eos # (Auto) 0.1 (0.0-0.4) th/mm3 Baso # (Auto) 0.0 (0.0-0.2) th/mm3 WBC Differential . Differential Comment Auto diff final PT (9.8-11.6) sec INR Ratio APTT (24.3-30.1) sec Puncture Site Patient Temperature O2 Saturation (90-100) % ABG pH (7.380-7.420) ABG pCO2 (38-42) mmHg ABG pO2 (61-120) mmHg ABG HCO3 (22-26) mmol/L ABG O2 Content (12.0-20.0) Vol % ABG Base Excess (-2-2) mmol/L ABG Methemoglobin (0-2) % Jeison Test Hemoglobin (12.0-16.0) G/DL Carboxyhemoglobin (0-4) % O2 Delivery Device Vent Setting Inspired O2 % Critical Value Sodium 145 (136-145) meq/L Potassium 3.7 (3.5-5.1) meq/L Chloride 102 (98-107) meq/L Carbon Dioxide 36.5 H (21.0-32.0) meq/L Anion Gap 7 (5-15) meq/L BUN 11 (7-18) mg/dL Creatinine 0.66 (0.60-1.30) mg/dL Estimated GFR Greater than 89 (>89) mL/min Random Glucose 118 H (74-106) mg/dL Lactic Acid (0.4-2.0) mmol/L Calcium 8.6 (8.5-10.1) mg/dL Magnesium 2.2 (1.5-2.5) mg/dL Total Bilirubin 0.2 (0.2-1.0) mg/dL AST 9 L (15-37) U/L ALT 23 (12-78) U/L Alkaline Phosphatase 53 (45-117) U/L Total Creatine Kinase 33 L (39-308) U/L Troponin I Less than 0.02 L (0.02-0.05) ng/mL B-Natriuretic Peptide 16 (0-100) pg/mL Total Protein 7.5 (6.4-8.2) g/dL Albumin 3.3 L (3.4-5.0) g/dL 04/17/18 04/17/18 04/17/18 Range/Units 14:03 14:03 14:15 WBC (4.0-11.0) th/mm3 RBC (4.50-5.90) mil/mm3 Hgb (13.0-17.0) gm/dL Hct (39.0-51.0) % MCV (80.0-100.0) fL MCH (27.0-34.0) pg MCHC (32.0-36.0) % RDW (11.6-17.2) % Plt Count (150-450) th/mm3 MPV (7.0-11.0) fL Neut % (Auto) (16.0-70.0) % Lymph % (Auto) (9.0-44.0) % Thomas % (Auto) (0.0-8.0) % Eos % (Auto) (0.0-4.0) % Baso % (Auto) (0.0-2.0) % Neut # (Auto) (1.8-7.7) th/mm3 Lymph # (Auto) (1.0-4.8) th/mm3 Thomas # (Auto) (0.0-0.9) th/mm3 Eos # (Auto) (0.0-0.4) th/mm3 Baso # (Auto) (0.0-0.2) th/mm3 WBC Differential Differential Comment PT 10.0 (9.8-11.6) sec INR 1.0 Ratio APTT 24.8 (24.3-30.1) sec Puncture Site Right radial Patient Temperature 98.6 O2 Saturation 91 (90-100) % ABG pH 7.30 L (7.380-7.420) ABG pCO2 77 H* (38-42) mmHg ABG pO2 68 (61-120) mmHg ABG HCO3 37 H (22-26) mmol/L ABG O2 Content 14.0 (12.0-20.0) Vol % ABG Base Excess 10.4 H (-2-2) mmol/L ABG Methemoglobin 0.8 (0-2) % Jeison Test Present Hemoglobin 11.0 L (12.0-16.0) G/DL Carboxyhemoglobin 1.2 (0-4) % O2 Delivery Device Bipap Vent Setting Ipap 15, epap 5 Inspired O2 60 % Critical Value Yes Sodium (136-145) meq/L Potassium (3.5-5.1) meq/L Chloride (98-107) meq/L Carbon Dioxide (21.0-32.0) meq/L Anion Gap (5-15) meq/L BUN (7-18) mg/dL Creatinine (0.60-1.30) mg/dL Estimated GFR (>89) mL/min Random Glucose (74-106) mg/dL Lactic Acid 1.8 (0.4-2.0) mmol/L Calcium (8.5-10.1) mg/dL Magnesium (1.5-2.5) mg/dL Total Bilirubin (0.2-1.0) mg/dL AST (15-37) U/L ALT (12-78) U/L Alkaline Phosphatase (45-117) U/L Total Creatine Kinase (39-308) U/L Troponin I (0.02-0.05) ng/mL B-Natriuretic Peptide (0-100) pg/mL Total Protein (6.4-8.2) g/dL Albumin (3.4-5.0) g/dL 04/17/18 Range/Units 17:50 WBC (4.0-11.0) th/mm3 RBC (4.50-5.90) mil/mm3 Hgb (13.0-17.0) gm/dL Hct (39.0-51.0) % MCV (80.0-100.0) fL MCH (27.0-34.0) pg MCHC (32.0-36.0) % RDW (11.6-17.2) % Plt Count (150-450) th/mm3 MPV (7.0-11.0) fL Neut % (Auto) (16.0-70.0) % Lymph % (Auto) (9.0-44.0) % Thomas % (Auto) (0.0-8.0) % Eos % (Auto) (0.0-4.0) % Baso % (Auto) (0.0-2.0) % Neut # (Auto) (1.8-7.7) th/mm3 Lymph # (Auto) (1.0-4.8) th/mm3 Thomas # (Auto) (0.0-0.9) th/mm3 Eos # (Auto) (0.0-0.4) th/mm3 Baso # (Auto) (0.0-0.2) th/mm3 WBC Differential Differential Comment PT (9.8-11.6) sec INR Ratio APTT (24.3-30.1) sec Puncture Site Right radial Patient Temperature 98.6 O2 Saturation 89 L* (90-100) % ABG pH 7.29 L* (7.380-7.420) ABG pCO2 79 H* (38-42) mmHg ABG pO2 67 (61-120) mmHg ABG HCO3 37 H (22-26) mmol/L ABG O2 Content 13.9 (12.0-20.0) Vol % ABG Base Excess 10.5 H (-2-2) mmol/L ABG Methemoglobin 1.3 (0-2) % Jeison Test Present Hemoglobin 11.0 L (12.0-16.0) G/DL Carboxyhemoglobin 1.1 (0-4) % O2 Delivery Device Bipap15/5 Vent Setting Inspired O2 60 % Critical Value Yes Sodium (136-145) meq/L Potassium (3.5-5.1) meq/L Chloride (98-107) meq/L Carbon Dioxide (21.0-32.0) meq/L Anion Gap (5-15) meq/L BUN (7-18) mg/dL Creatinine (0.60-1.30) mg/dL Estimated GFR (>89) mL/min Random Glucose (74-106) mg/dL Lactic Acid (0.4-2.0) mmol/L Calcium (8.5-10.1) mg/dL Magnesium (1.5-2.5) mg/dL Total Bilirubin (0.2-1.0) mg/dL AST (15-37) U/L ALT (12-78) U/L Alkaline Phosphatase (45-117) U/L Total Creatine Kinase (39-308) U/L Troponin I (0.02-0.05) ng/mL B-Natriuretic Peptide (0-100) pg/mL Total Protein (6.4-8.2) g/dL Albumin (3.4-5.0) g/dL Imaging Data Radiologist's impression: Chest X-Ray 04/17/18 13:52 CONCLUSION: No significant change compared 04/03/2018. Chest CTA 04/17/18 15:06 CONCLUSION: 1. Limited CT PE examination despite repeat scanning. 2. The pulmonary arteries are visualized to the proximal segmental level without evidence for pulmonary embolism. More distal segmental and subsegmental branches are inadequately visualized for definitive evaluation. 3. Main pulmonary artery is prominent and consistent with some degree of pulmonary artery hypertension. 4. Dense airspace consolidation with associated volume loss in the lower lobes , right greater than left and inferior right middle lobe. Differential considerations include aspiration and pneumonia in the appropriate clinical setting. 5. Solitary prominent right hilar node measuring up to 10 mm. This is very nonspecific and may be reactive/infectious in etiology. ECG Data Attestation: I personally reviewed and interpreted this ECG as follows: Discharge Plan Discharge Disposition Patient Disposition: 30 Still Patient Discharge Condition Condition: Critical Discharge Details Diagnosis: Acute exacerbation of chronic obstructive pulmonary disease (COPD), Hypoxia, Cellulitis Physicians Team ED Provider: Denita Lopes Primary Care Provider: Parviz Covington Attending Provider: Fausto Ayala Status ED Status: Left Department Discharge Information Discharge Date/Time: 04/17/18 17:06
[2018-04-17 14:16] LABS: Baso % (Auto) 0.4 % (0.0-2.0); Eos # (Auto) 0.1 th/mm3 (0.0-0.4); Eos % (Auto) 0.9 % (0.0-4.0); Hematocrit 35.6 % (39.0-51.0); Hemoglobin 11.4 gm/dL (13.0-17.0); Lymph # (Auto) 0.8 th/mm3 (1.0-4.8); Lymph % (Auto) 11.3 % (9.0-44.0); Mean Corpuscular HGB Conc 31.9 % (32.0-36.0); Mean Corpuscular Hemoglobin 30.4 pg (27.0-34.0); Mean Corpuscular Volume 95.3 fL (80.0-100.0); Mean Platelet Volume 8.3 fL (7.0-11.0); Mono # (Auto) 0.3 th/mm3 (0.0-0.9); Mono % (Auto) 4.4 % (0.0-8.0); Neut # (Auto) 5.6 th/mm3 (1.8-7.7); Platelet Count 211 th/mm3 (150-450); Red Blood Count 3.73 mil/mm3 (4.50-5.90); Red Cell Distribution Width 14.6 % (11.6-17.2); White Blood Count 6.8 th/mm3 (4.0-11.0)
--- NOTE | 2018-04-17 14:18 | XR ---
EXAM DATE: 04/17/2018 2:13 PM EDT AGE/SEX: 72 years / Male INDICATIONS: Shortness of breath. CLINICAL DATA: This is the patient's initial encounter. Patient reports that signs and symptoms have been present for 1 day and indicates a pain score of 0/10. MEDICAL/SURGICAL HISTORY: Diabetes. Hypercholesterolemia. Hypertension. Chronic obstructive pul monary disease. Afib. None. COMPARISON: [facility], CHEST 1V SINGLE AP, 04/03/2018. . FINDINGS: Scattered atelectatic changes are noted involving the lungs bilaterally and are stable. There is pers istent elevation of the right hemidiaphragm. The heart is stable. There is no significant change comp ared to 04/03/2018. CONCLUSION: No significant change compared 04/03/2018. Electronically signed by: Dony Martinez MD 04/17/2018 2:17 PM EDT
[2018-04-17 14:25] LABS: Activated Partial Thrombo Time 24.8 sec (24.3-30.1)
[2018-04-17 14:33] LABS: ABG Base Excess 10.4 mmol/L (-2-2); ABG PCO2 77 mmHg (38-42); ABG PO2 68 mmHg (61-120)
[2018-04-17 14:41] LABS: Alanine Aminotransferase 23 U/L (12-78); Albumin 3.3 g/dL (3.4-5.0); Anion Gap 7 meq/L (5-15); Aspartate Aminotransferase 9 U/L (15-37); Blood Urea Nitrogen 11 mg/dL (7-18); Calcium 8.6 mg/dL (8.5-10.1); Carbon Dioxide 36.5 meq/L (21.0-32.0); Chloride 102 meq/L (98-107); Glomerular Filtration Rate Greater Than 89 mL/min (>89); Glucose,Random 118 mg/dL (74-106); Magnesium 2.2 mg/dL (1.5-2.5); Potassium 3.7 meq/L (3.5-5.1); Sodium 145 meq/L (136-145)
[2018-04-17 14:45] LABS: Alkaline Phosphatase 53 U/L (45-117); Total Protein 7.5 g/dL (6.4-8.2)
[2018-04-17 14:50] LABS: Creatine Kinase 33 U/L (39-308)
[2018-04-17] MEDS ORDERED: Bisacodyl 10 MG Supp RECTAL PRN (15:24)
[2018-04-17] MEDS ORDERED: Dextrose 50% in Water 50 ML Vial IV.PUSH PRN (15:30)
[2018-04-17] MEDS: Sodium Chloride 0.45 % Inj 1,000 ML IV.CONT SCH (16:47)
--- NOTE | 2018-04-17 17:11 | CT ---
EXAM DATE: 04/17/2018 4:59 PM EDT AGE/SEX: 72 years / Male INDICATIONS: Shortness of breath. CLINICAL DATA: This is the patient's initial encounter. Patient reports that signs and symptoms have been present for 1 day and indicates a pain score of 7/10. MEDICAL/SURGICAL HISTORY: Diabetes. Chronic obstructive pulmonary disease. Cardiovascular disease . None. RADIATION DOSE: 23.21 CTDI (mGy) ; Patient body habitus COMPARISON: [facility], CT CHEST W/O CONTRAST, 06/24/2017. . TECHNIQUE: Volumetric scanning was performed using a multi-row detector CT scanner during bolus infu shyam of 70 ml Omnipaque 350 (iohexol) nonionic water-soluble contrast as a single exam dose. The angelo a was post processed with a variety of visualization algorithms including full volume maximum intensi ty projection and sliding thin slab reformation. Using automated exposure control and adjustment of the mA and/or kV according to patient size, radiation dose was kept as low as reasonably achievable t o obtain optimal diagnostic quality images. DICOM format image data is available electronically for review and comparison. FINDINGS: Patient was scanned twice with no improvement in phase of pulmonary artery contrast. Pulmonary Arteries: The pulmonary arteries are visualized to the proximal segmental level without in traluminal filling defect. More distal segmental and subsegmental branches are inadequately visualize d for definitive evaluation. The measuring pulmonary artery is dilated and measures up to 4 cm. Lung: Redemonstration of scarring in the right medial lung apex. Dense airspace consolidation and vo lume loss with air bronchograms in the inferior right middle lobe and right lower lobe. Less prominen t airspace consolidation in the posterior left lower lobe. Pleura: No effusion, significant pleural thickening or pneumothorax. Mediastinum: Prominent right hilar node measuring up to 10 mm. Otherwise, no significant mediastinal adenopathy. The heart is unremarkable without evidence for pericardial effusion. Osseous Structures: No abnormal focal lytic or blastic bony lesions. Other: Visulaized upper abdomen is unremarkable. CONCLUSION: 1. Limited CT PE examination despite repeat scanning. 2. The pulmonary arteries are visualized to the proximal segmental level without evidence for pulmon cody embolism. More distal segmental and subsegmental branches are inadequately visualized for definit luis evaluation. 3. Main pulmonary artery is prominent and consistent with some degree of pulmonary artery hypertensi on. 4. Dense airspace consolidation with associated volume loss in the lower lobes, right greater than l eft and inferior right middle lobe. Differential considerations include aspiration and pneumonia in t he appropriate clinical setting. 5. Solitary prominent right hilar node measuring up to 10 mm. This is very nonspecific and may be re active/infectious in etiology. Electronically signed by: Pino Nuñez MD 04/17/2018 5:10 PM EDT
[2018-04-17] MEDS: Enoxaparin Inj 40 MG/0.4 ML Syringe SQ SCH (17:54)
[2018-04-17] MEDS: MethylPREDNISolone Sod Succinate Inj 125 MG/2 ML Vial IV.PUSH SCH (17:54)
[2018-04-17] MEDS: Budesonide-Formoterol 160/4.5 MCG 6 GM Inhaler INH SCH ×2 (17:55→20:45)
[2018-04-17] MEDS: Piperacil/Tazo 4.5 GM Premix 4.5 GM/100 ML BAG IV.SIG SCH ×2 (17:55→21:59)
[2018-04-17] MEDS ORDERED: Insulin NovoLOG Aspart Correctional Sugar Inj SQ SCH (18:00)
[2018-04-17] MEDS ORDERED: acetaZOLAMIDE Inj 250 MG in Sodium Chlor 0.9% Inj 50 ML IV.SIG ONE (18:00)
[2018-04-17 18:01] LABS: ABG Base Excess 10.5 mmol/L (-2-2); ABG PCO2 79 mmHg (38-42); ABG PO2 67 mmHg (61-120)
[2018-04-17] MEDS: Morphine Sulfate 15 MG SR Tablet PO SCH (18:31)
[2018-04-17] MEDS: Famotidine PF Inj 20 MG/2 ML Vial IV.PUSH SCH (20:21)
[2018-04-17] MEDS: Senna/Docusate Sodium 8.6/50 MG Tablet PO SCH (20:21)
[2018-04-17] MEDS: Insulin NovoLOG Aspart Correctional Sugar Inj SQ SCH ×2 (20:24→23:22)
[2018-04-17] MEDS: Mometasone Furoate 50 MCG/ACT 17 GM Nasal Spray Bottle EACH NARE SCH (20:45)
[2018-04-17] MEDS ORDERED: Budesonide-Formoterol 160/4.5 MCG 6 GM Inhaler INH SCH (21:00)
--- NOTE | 2018-04-17 22:58 | US ---
EXAM DATE: 04/17/2018 10:55 PM EDT AGE/SEX: 72 years / Male INDICATIONS: Bilateral leg swelling. CLINICAL DATA: This is the patient's initial encounter. Patient reports that signs and symptoms have been present for 1 day and indicates a pain score of 0/10. MEDICAL/SURGICAL HISTORY: Diabetes. Chronic obstructive pulmonary disease. Cardiovascular dis ease. None. COMPARISON: [facility], US LEG VENOUS DOPPLER, BILATERAL, 04/13/2018. . TECHNIQUE: Venous ultrasound of both lower extremities was performed from the inguinal ligament to t he proximal calf. Real-time, color Doppler and spectral tracing, compression and augmentation techni ques were used. FINDINGS: Right Leg: Normal compression of the deep venous system from the inguinal region to the proximal abiodun f. No echogenic clot is seen. Normal response of the venous system to augmentation and respiration. Left Leg: Normal compression of the deep venous system from the inguinal region to the proximal calf . No echogenic clot is seen. Normal response of the venous system to augmentation and respiration. Other: None. CONCLUSION: No DVT. Electronically signed by: Michael Bustos MD 04/17/2018 10:57 PM EDT
[2018-04-18] MEDS: MethylPREDNISolone Sod Succinate Inj 125 MG/2 ML Vial IV.PUSH SCH ×3 (00:12→17:02)
[2018-04-18] MEDS: Morphine Sulfate 15 MG SR Tablet PO SCH ×3 (01:05→18:49)
[2018-04-18] MEDS ORDERED: Chlorhexidine Gluconate 2% 1 Pack (2 Cloths) TOPICAL PRN (04:00)
[2018-04-18 04:17] LABS: Baso % (Auto) 0.1 % (0.0-2.0); Hematocrit 33.3 % (39.0-51.0); Hemoglobin 10.6 gm/dL (13.0-17.0); Lymph # (Auto) 0.3 th/mm3 (1.0-4.8); Mean Corpuscular Hemoglobin 30.4 pg (27.0-34.0); Mean Platelet Volume 8.5 fL (7.0-11.0); Mono # (Auto) 0.1 th/mm3 (0.0-0.9); Mono % (Auto) 1.2 % (0.0-8.0); Neut # (Auto) 7.9 th/mm3 (1.8-7.7); Neut % (Auto) 94.7 % (16.0-70.0); Platelet Count 199 th/mm3 (150-450); Red Cell Distribution Width 14.5 % (11.6-17.2); White Blood Count 8.3 th/mm3 (4.0-11.0)
[2018-04-18 04:51] LABS: Alanine Aminotransferase 34 U/L (12-78); Albumin 2.9 g/dL (3.4-5.0); Alkaline Phosphatase 49 U/L (45-117); Anion Gap 8 meq/L (5-15); Aspartate Aminotransferase 20 U/L (15-37); Blood Urea Nitrogen 14 mg/dL (7-18); Calcium 8.5 mg/dL (8.5-10.1); Carbon Dioxide 33.4 meq/L (21.0-32.0); Chloride 104 meq/L (98-107); Glomerular Filtration Rate Greater Than 89 mL/min (>89); Glucose,Random 166 mg/dL (74-106); Magnesium 2.4 mg/dL (1.5-2.5); Potassium 3.6 meq/L (3.5-5.1); Sodium 145 meq/L (136-145); Total Protein 6.8 g/dL (6.4-8.2)
[2018-04-18] MEDS: Insulin NovoLOG Aspart Correctional Sugar Inj SQ SCH ×6 (04:53→23:37)
[2018-04-18] MEDS: Chlorhexidine Gluconate 2% 1 Pack (2 Cloths) TOPICAL SCH (04:54)
[2018-04-18] MEDS: Piperacil/Tazo 4.5 GM Premix 4.5 GM/100 ML BAG IV.SIG SCH ×4 (04:55→22:15)
[2018-04-18] MEDS: Sodium Chloride 0.45 % Inj 1,000 ML IV.CONT SCH ×2 (06:21→08:25)
[2018-04-18 06:26] LABS: ABG PCO2 64 mmHg (38-42); ABG PO2 70 mmHg (61-120)
--- NOTE | 2018-04-18 07:37 | MH ---
cc: Fausto Ayala MD DATE OF ADMISSION: 04/17/2018 HISTORY OF PRESENT ILLNESS: The patient is a 72-year-old male with past medical history of end-stage COPD, on 2-4 liters of oxygen at home and obstructive sleep apnea, who presented to [facility] ED for shortness of breath and episodes of desaturation. He is being followed up by Dr. Delacruz, his outpatient inside sales account representative. His home health nurse found him today hypoxic, with saturations in the mid 80s. He was given Lasix 40 mg and placed on CPAP by fire rescue. E-VAC gave Solu-Medrol 125 mg IV push and nebulizers, which increased his saturation to 93%. The patient was recently discharged from [facility] approximately 10 days ago after he was admitted for respiratory failure, chronic obstructive pulmonary disease exacerbation requiring intubation, and mechanical ventilation. In addition, he was treated for pneumonia and had MRSA in the sputum on 03/17/2018. Chest x-ray, NAD, showed scattered atelectatic changes bilaterally with elevation of the right hemidiaphragm. No significant change compared to prior study of 04/03/2018. The patient was placed on BiPAP of 15/5 with 60% FiO2 and his ABG showed respiratory acidosis with a pH of 7.30, CO2 of 77, PaO2 of 68, bicarbonate of 37, and saturation of 91%. PAST MEDICAL HISTORY: Significant for COPD, hyperlipidemia, diabetes mellitus, hypertension, previous history of MRSA pneumonia, history of paroxysmal atrial fibrillation. PAST SURGICAL HISTORY: Previous lumbar laminectomy. ALLERGIES: NO KNOWN DRUG ALLERGIES. REPORTED MEDICATIONS: Include: 1. Prednisone. 2. Keflex was given for cellulitis. 3. Valium. 4. Percocet p.r.n. 5. Albuterol inhaler. 6. Spiriva. 7. Advair. 8. Nasonex. 9. Metformin. 10. Glipizide. 11. Altace. 12. Lasix. 13. Norvasc. 14. Lipitor. 15. Digoxin. 16. Aspirin. REVIEW OF SYSTEMS: As per HPI. Rest of review of systems is unremarkable. PHYSICAL EXAMINATION: GENERAL: A 72-year-old male lying in bed in mild respiratory distress, on BiPAP. VITAL SIGNS: Temperature 98.3, pulse 102, blood pressure 120/61, saturation 93%. HEENT: Atraumatic, normocephalic. Pupils are equal, round and react to light and accommodation. Extraocular muscles intact. Conjunctivae pink. Nonicteric sclerae. Oral mucosa within normal. NECK: Supple. No JVD, adenopathy or thyromegaly. Trachea in the midline. CARDIOVASCULAR: Tachycardic. Normal S1, S2. No murmurs, rubs, or gallops noted. PULMONARY: Bilateral air entry. No rales or wheezing. ABDOMEN: Soft, obese, nontender. No distention. Positive bowel sounds. EXTREMITIES: No cyanosis, clubbing, 2+ edema, with erythema of bilateral lower extremities. NEUROLOGIC: No focal sensory deficits. LABORATORY DATA: Sodium 145, potassium 3.7, chloride 102, CO2 of 36, BUN 11, creatinine 0.6, glucose 118. Lactic acid 1.8, total bilirubin 0.2, AST 9, ALT 23, alkaline phosphatase 53, total CK 33. Troponin less than 0.02. BNP 16, WBC 6.8, hemoglobin 11.4, hematocrit 35, platelet count of 211,000. RADIOGRAPHIC STUDIES: Chest x-ray showed atelectatic changes bilaterally, elevation of right hemidiaphragm - unchanged compared to prior study of 04/03. ASSESSMENT: 1. Acute hypercapnic and hypoxemic respiratory failure. 2. Chronic obstructive pulmonary disease exacerbation. 3. Hypertension. 4. Atrial fibrillation. 5. History of methicillin-resistant Staphylococcus aureus pneumonia in 02/2018. 6. Cellulitis of lower extremity. 7. Diabetes mellitus. 8. Hyperlipidemia. RECOMMENDATIONS: 1. Monitor neuro status closely and avoid any sedatives. 2. Continue oxygen and maintain sats above 92%. 3. We will place on bronchodilators in the form of DuoNeb q.4 plus q.2 hours p.r.n. for shortness of breath. 4. Symbicort 160/4.5 two puffs b.i.d. 5. Continue with Solu-Medrol 60 mg IV every 8 hours. 6. We will repeat an ABG. If there is any worsening in clinical status or respiratory acidosis, will proceed with intubation and mechanical ventilation. 7. Hold p.o. prednisone. 8. Monitor heart rate and blood pressure closely and maintain MAP greater than 65 mmHg. Lactic acid measured at 1.8. We will continue with aspirin 81 mg daily and Lipitor 40 mg at bedtime. 9. Give Diamox 250 mg IV x1. 10. The patient is scheduled for CT angiogram of the chest to rule out pulmonary embolism. We will follow up. 11. Monitor renal function, I's and O's, and electrolyte replacement per protocol. Place on IV fluids half NS at 75 mL an hour. Hold Lasix. 12. Keep n.p.o. for now until respiratory status improves and place on Pepcid 20 mg IV every 12 hours for gastrointestinal prophylaxis. 13. Start empiric antibiotic, Zosyn, and monitor for signs of infection, which include fever and WBC. Check sputum culture with Gram stain. Follow up on blood cultures, which was performed in the ED. Monitor CBC. 14. Place on sliding scale insulin with Accu-Cheks for glycemic control. 15. Gastrointestinal prophylaxis with Pepcid 20 mg IV q.12 and deep venous thrombosis prophylaxis with sequential compression devices and Lovenox 40 mg subcutaneous daily. 16. We will obtain a Doppler ultrasound of lower extremity, rule out deep venous thrombosis. 17. Further recommendations will be based on hospital course. MD JIM Shahid/bill , 04:28 PM , 04:43 PM
[2018-04-18] MEDS: Senna/Docusate Sodium 8.6/50 MG Tablet PO SCH ×2 (09:18→20:33)
[2018-04-18] MEDS: Digoxin 125 MCG Tablet PO SCH (09:18)
[2018-04-18] MEDS: Famotidine PF Inj 20 MG/2 ML Vial IV.PUSH SCH ×2 (09:18→20:34)
[2018-04-18] MEDS: Mometasone Furoate 50 MCG/ACT 17 GM Nasal Spray Bottle EACH NARE SCH ×2 (09:20→20:34)
[2018-04-18] MEDS: Budesonide-Formoterol 160/4.5 MCG 6 GM Inhaler INH SCH ×2 (09:20→20:35)
--- NOTE | 2018-04-18 11:22 | P.PNCC ---
Subjective Subjective Remarks/Hospital Course: The patient is a 72-year-old male with past medical history of end-stage COPD, on 2-4 liters of oxygen at home and obstructive sleep apnea, who presented to [facility] ED for shortness of breath and episodes of desaturation. He is being followed up by Dr. Delacruz, his outpatient veterinary pharmacologist. His home health nurse found him today hypoxic, with saturations in the mid 80s. He was given Lasix 40 mg and placed on CPAP by fire rescue. E -VAC gave Solu-Medrol 125 mg IV push and nebulizers, which increased his saturation to 93%. The patient was recently discharged from [facility] approximately 10 days ago after he was admitted for respiratory failure, chronic obstructive pulmonary disease exacerbation requiring intubation, and mechanical ventilation. In addition, he was treated for pneumonia and had MRSA in the sputum on 03/17/2018. Chest x-ray, NAD, showed scattered atelectatic changes bilaterally with elevation of the right hemidiaphragm. No significant change compared to prior study of 04/03/2018. The patient was placed on BiPAP of 15/ 5 with 60% FiO2 and his ABG showed respiratory acidosis with a pH of 7.30, CO2 of 77, PaO2 of 68, bicarbonate of 37, and saturation of 91%. 04/18 Patient was on BIPAP overnight now off of it. Repeat ABG this morning showed improvements in his resp acidosis. Awake and alert. Objective Vital Signs / I&O: Vital Signs 04/17/18 13:26 04/17/18 13:54 04/17/18 14:03 Temperature Pulse Rate 109 H 114 H Respiratory Rate 26 H 34 H Blood Pressure 155/76 H Pulse Oximetry 86 L 89 L 93 L 04/17/18 15:15 04/17/18 15:46 04/17/18 16:00 Temperature 98.8 F Pulse Rate 103 H 106 H Respiratory Rate 12 15 Blood Pressure 120/61 115/67 Pulse Oximetry 91 L 93 L 04/17/18 17:00 04/17/18 17:20 04/17/18 17:50 Temperature 98.4 F Pulse Rate 110 H 110 H Respiratory Rate 12 15 Blood Pressure 141/70 H Pulse Oximetry 93 L 92 L 04/17/18 19:27 04/17/18 20:00 04/17/18 21:22 Temperature 98.1 F Pulse Rate 103 H 100 H 100 H Respiratory Rate 11 L 16 Blood Pressure 114/58 L Pulse Oximetry 93 L 94 L 94 L 04/17/18 23:38 04/18/18 00:00 04/18/18 01:00 Temperature 98.9 F Pulse Rate 90 86 Respiratory Rate 16 16 16 Blood Pressure 107/55 L Pulse Oximetry 93 L 95 04/18/18 02:59 04/18/18 03:24 04/18/18 04:00 Temperature 98.3 F Pulse Rate 83 82 Respiratory Rate 16 18 Blood Pressure 113/55 L Pulse Oximetry 93 L 95 04/18/18 07:49 Temperature Pulse Rate 77 Respiratory Rate 18 Blood Pressure Pulse Oximetry 90 L Intake & Output 04/17/18 04/18/18 04/18/18 18:59 06:59 18:59 Intake Total 250 / 250 200 / 200 1000 / 1000 Output Total 2099 Balance -1850 / -1850 -1950 / -1950 1000 / 1000 Weight 114.7 kg 115.8 kg Intake: IV 150 / 150 200 / 200 1000 / 1000 1/2 Normal Saline Inj 1,000 ML 1000 / 1000 @ 75 mls/hr IV.CONT .[id number] [facility] Rx#:[id number] Zosyn 4.5 GM Premix 4.5 gm In 100 / 100 200 / 200 100 ml @ 200 mls/hr IV.SIG Q6H [facility] Rx#:[id number] Diamox Inj 250 MG In NS Inj 50 50 / 50 ML @ 100 mls/hr IV.SIG ONCE ONE Rx#:[id number] Oral 100 / 100 Output: Urine Amount (Catheter) 2099 Indwelling Urethral Catheter 2099 Other: Weight On Admission 114.7 kg Result Diagrams: 04/18/18 03:28 04/18/18 03:28 Other Results: Laboratory Results - last 12 hr 04/18/18 04/18/18 04/18/18 01:05 03:28 03:28 WBC 8.3 RBC 3.50 L Hgb 10.6 L Hct 33.3 L MCV 95.0 MCH 30.4 MCHC 32.0 RDW 14.5 Plt Count 199 MPV 8.5 Neut % (Auto) 94.7 H Lymph % (Auto) 4.0 L Davis % (Auto) 1.2 Eos % (Auto) 0.0 Baso % (Auto) 0.1 Neut # (Auto) 7.9 H Lymph # (Auto) 0.3 L Davis # (Auto) 0.1 Eos # (Auto) 0.0 Baso # (Auto) 0.0 WBC Differential . Differential Comment Auto diff final Puncture Site Patient Temperature O2 Saturation ABG pH ABG pCO2 ABG pO2 ABG HCO3 ABG O2 Content ABG Base Excess ABG Methemoglobin Jeison Test Hemoglobin Carboxyhemoglobin O2 Delivery Device Vent Setting Inspired O2 Critical Value Sodium 145 Potassium 3.6 Chloride 104 Carbon Dioxide 33.4 H Anion Gap 8 BUN 14 Creatinine 0.61 Estimated GFR Greater than 89 POC Glucose Random Glucose 166 H Calcium 8.5 Phosphorus 4.0 Magnesium 2.4 Total Bilirubin 0.4 AST 20 ALT 34 Alkaline Phosphatase 49 Total Protein 6.8 D Albumin 2.9 L Nasal Screen MRSA (PCR) Not detected 04/18/18 04/18/18 04/18/18 04:45 06:12 07:48 WBC RBC Hgb Hct MCV MCH MCHC RDW Plt Count MPV Neut % (Auto) Lymph % (Auto) Davis % (Auto) Eos % (Auto) Baso % (Auto) Neut # (Auto) Lymph # (Auto) Davis # (Auto) Eos # (Auto) Baso # (Auto) WBC Differential Differential Comment Puncture Site Right radial Patient Temperature 98.6 O2 Saturation 91 ABG pH 7.33 L ABG pCO2 64 H* ABG pO2 70 ABG HCO3 33 H ABG O2 Content 13.3 ABG Base Excess 7.0 H ABG Methemoglobin 1.3 Jeison Test Present Hemoglobin 10.4 L Carboxyhemoglobin 1.2 O2 Delivery Device Bipap Vent Setting Epap 5/ipap 15 Inspired O2 50 Critical Value Yes Sodium Potassium Chloride Carbon Dioxide Anion Gap BUN Creatinine Estimated GFR POC Glucose 166 H 151 H Random Glucose Calcium Phosphorus Magnesium Total Bilirubin AST ALT Alkaline Phosphatase Total Protein Albumin Nasal Screen MRSA (PCR) Imaging: Venous Doppler Study 04/17/18 00:00 CONCLUSION: No DVT. Chest X-Ray 04/17/18 13:52 CONCLUSION: No significant change compared 04/03/2018. Chest CTA 04/17/18 15:06 CONCLUSION: 1. Limited CT PE examination despite repeat scanning. 2. The pulmonary arteries are visualized to the proximal segmental level without evidence for pulmonary embolism. More distal segmental and subsegmental branches are inadequately visualized for definitive evaluation. 3. Main pulmonary artery is prominent and consistent with some degree of pulmonary artery hypertension. 4. Dense airspace consolidation with associated volume loss in the lower lobes , right greater than left and inferior right middle lobe. Differential considerations include aspiration and pneumonia in the appropriate clinical setting. 5. Solitary prominent right hilar node measuring up to 10 mm. This is very nonspecific and may be reactive/infectious in etiology. Objective Remarks: GENERAL: Patient is 72 lying in bed in NAD SKIN: Warm and dry. HEAD: Normocephalic. EYES: No scleral icterus. No injection or drainage. NECK: Supple, trachea midline. No JVD or lymphadenopathy. CARDIOVASCULAR: Regular rate and rhythm without murmurs, gallops, or rubs. RESPIRATORY: Breath sounds equal bilaterally. No accessory muscle use. GASTROINTESTINAL: Abdomen soft, non-tender, nondistended. MUSCULOSKELETAL: No cyanosis, or edema. Neuro: Awake and alert. Assessment and Plan - Assessment and Plan Plan: 1. Acute hypercapnic and hypoxemic respiratory failure. 2. COPD exacerbation. 3. Hypertension. 4. Atrial fibrillation. 5. History of methicillin-resistant Staphylococcus aureus pneumonia in 02/2018. 6. Cellulitis of lower extremity. 7. Diabetes mellitus. 8. Hyperlipidemia. Plan Neuro: Awake and alert avoid any sedatives. Pulm: Continue oxygen and maintain sats >92%. Bronchodilators ( DuoNeb, Symbicort) Continue Solu-Medrol 60 mg IV every 8 hours. Give Diamox 250mg IVx1 Pulm is following- Dr. Wall CV: Monitor HR and BP and maintain MAP> 65 mmHg. Lactic acid : 1.8. Continue Aspirin 81 mg daily and Lipitor 40 mg , DIgoxin 125mcg daily, check Dig level. : Monitor renal function, I's and O's, and electrolyte replacement per protocol. d/c IVF GI: on Pepcid 20 mg IV every 12 hours for GI prophylaxis. Place on Cardiac diet ID: Continue Zosyn, and monitor for signs of infection(fever and WBC). Follow up on blood cultures Heme: Monitor CBC. Endo: SSI with Accu-Cheks for glycemic control. GI prophylaxis with Pepcid 20 mg IV q.12 and DVT prophylaxis with SCD and Lovenox 40 mg subcutaneous daily. Doppler US LE negative for DVT Will sign off and transfer care to [facility] Level 2
[2018-04-18] MEDS ORDERED: acetaZOLAMIDE Inj 250 MG in Sodium Chlor 0.9% Inj 50 ML IV.SIG ONE (12:00)
--- NOTE | 2018-04-18 16:27 | ECG ---
Date Performed: 04/17/2018 Time Performed: 13:28:24 PTAGE: 72 years EKG: SINUS TACHYCARDIA PATTERN CONSISTENT WITH PULMONARY DISEASE LEFT ANTERIOR FASCICULAR BLOCK Since the previous tracing, no significant change noted ABNORMAL ECG NO PREVIOUS TRACING DOCTOR: Dakota Mesa Interpretating Date/Time 04/18/2018 16:22:32
[2018-04-18] MEDS: Enoxaparin Inj 40 MG/0.4 ML Syringe SQ SCH (16:58)
--- NOTE | 2018-04-18 20:13 | MB ---
cc: Jose Wall MD, Alaa MD DATE: 04/18/2018 REQUESTING PHYSICIAN: Fausto Ayala MD REASON FOR CONSULTATION: COPD management. HISTORY OF PRESENT ILLNESS: Mr. Frost is a 72-year-old male with a history of COPD, oxygen dependent, and uses oxygen 2-3 liter nasal cannula. He also has a history of sleep apnea and uses a CPAP machine at home. The patient was getting more lethargic and more short of breath. His called. His initial blood gas showed a pH of 7.30, pCO2 of 77, pO2 of 68, bicarbonate of 37. He was put on BiPAP. Repeat blood gas, pH of 7.33, pCO2 of 64, pO2 of 70. Currently, he is weaned down to nasal cannula. His CBC shows WBC count of 8.3, hemoglobin 10.6, hematocrit 33.3, MCV 95, platelet count 199. His sodium is 145, potassium 3.6, chloride 104, CO2 of 33, BUN 14, creatinine 0.61. He had a CTA of the chest done, which shows no pulmonary embolism in the proximal segmental level. He has prominence of the main pulmonary artery and he has dense consolidation in both lung bases. PAST MEDICAL HISTORY: Significant for a history of COPD with recent respiratory failure and intubation, sleep apnea, hyperlipidemia, diabetes mellitus, pneumonia, paroxysmal atrial fibrillation, history of lumbar laminectomy. MEDICATIONS: He is currently taking albuterol and Atrovent nebulizer treatments, aspirin 81 mg a day, Lipitor 40 mg a day, Symbicort 160/4.5 two puffs twice a day, diazepam 10 mg twice a day, digoxin 0.125 mg a day, Lovenox 40 mg a day, famotidine 20 mg a day. He is on insulin, Solu-Medrol 60 mg q.8 hours, Nasonex nasal spray, morphine for pain, oxycodone for pain, Zosyn 4.5 grams q.6 hours IV. ALLERGIES: NO KNOWN DRUG ALLERGIES. SOCIAL HISTORY: He has no history of smoking. He used to drink socially. 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 FAMILY HISTORY: He is and has 1 son. REVIEW OF SYSTEMS: He walks only inside the house. Weight is stable. No DVT or pulmonary embolism. No malignancy. PHYSICAL EXAMINATION: GENERAL: Well-built, well-nourished male, mildly short of breath. VITAL SIGNS: Blood pressure 114/56, heart rate 90, respirations 18, temperature 98.1. HEENT: Pupils are equal and reactive to light. Oral mucosa and nasal mucosa normal. NECK: Supple. No JVD noted. CHEST: Equally bilaterally. He has decreased chest excursions and a few rhonchi. CARDIOVASCULAR: S1, S2 normal. ABDOMEN: Benign. EXTREMITIES: No edema. IMPRESSION: 1. Hypercapnic respiratory failure. 2. Chronic obstructive pulmonary disease exacerbation. 3. Bibasilar lung infiltrates. 4. Obstructive sleep apnea. 5. Diabetes mellitus. PLAN: I have discussed with the patient. Currently, he is on nasal cannula. He will use a CPAP machine at nighttime and as needed for shortness of breath. Continue antibiotics and aerosol treatments. Continue IV Solu-Medrol. Monitor his blood sugar. Monitor electrolytes. Further treatment will depend on the course in the hospital. Thank you, Dr. Ayala, for this consult. MD RONEY Lau/delilah , 07:15 PM , 07:23 PM
[2018-04-19] MEDS: MethylPREDNISolone Sod Succinate Inj 125 MG/2 ML Vial IV.PUSH SCH ×3 (00:24→16:31)
[2018-04-19] MEDS: Morphine Sulfate 15 MG SR Tablet PO SCH ×3 (02:06→18:18)
[2018-04-19] MEDS: Insulin NovoLOG Aspart Correctional Sugar Inj SQ SCH ×6 (03:34→23:47)
[2018-04-19] MEDS: Chlorhexidine Gluconate 2% 1 Pack (2 Cloths) TOPICAL SCH (03:37)
[2018-04-19] MEDS: Piperacil/Tazo 4.5 GM Premix 4.5 GM/100 ML BAG IV.SIG SCH ×4 (04:08→23:47)
--- NOTE | 2018-04-19 08:37 | P.PNIM ---
Subjective Interval history: f/u; respiratory failure in no acute distress. overall doing fine on N/C. no cough, pain or fever. Physical Exam Vital signs: Vital Signs 04/18/18 08:45 04/18/18 10:00 04/18/18 11:59 Temperature Pulse Rate 86 88 Respiratory Rate 23 Blood Pressure Pulse Oximetry 90 L 04/18/18 12:00 04/18/18 14:00 04/18/18 16:00 Temperature 97.8 F 98.1 F Pulse Rate 90 95 H 90 Respiratory Rate 44 H 13 Blood Pressure 104/55 L 114/56 L Pulse Oximetry 88 L 92 L 04/18/18 19:41 04/18/18 20:00 04/19/18 00:00 Temperature 99.0 F 98.5 F Pulse Rate 98 H 96 H 86 Respiratory Rate 24 20 15 Blood Pressure 114/56 L 108/55 L Pulse Oximetry 93 L 94 L 93 L 04/19/18 00:30 04/19/18 04:00 04/19/18 04:06 Temperature 98.6 F Pulse Rate 92 H 86 88 Respiratory Rate 25 H 14 13 Blood Pressure 124/62 Pulse Oximetry 94 L 93 L Intake & Output 04/18/18 04/19/18 04/19/18 18:59 06:59 18:59 Intake Total 2500 / 2500 2040 / 2040 Output Total 2450 / 2450 2400 / 2400 Balance 50 / 50 -360 / -360 Weight 117.2 kg Intake: IV 1500 / 1500 600 / 600 1/2 Normal Saline Inj 1,000 ML 1300 / 1300 400 / 400 @ 75 mls/hr IV.CONT .[id number] [facility] Rx#:[id number] Zosyn 4.5 GM Premix 4.5 gm In 200 / 200 200 / 200 100 ml @ 200 mls/hr IV.SIG Q6H [facility] Rx#:[id number] Oral 1000 / 1000 1440 / 1440 Output: Urine Amount (Catheter) 2450 / 2450 2400 / 2400 Indwelling Urethral Catheter 2450 / 2450 2400 / 2400 Other: Date of Last Bowel Movement 04/15/18 # Bowel Movements 0 - Constitutional no acute distress - Routine Respiratory Exam Present: CTA bilaterally - Routine Cardiovascular Exam Present: RRR - Routine Abdominal Exam Present: soft - Routine Extremities Exam Comments: no pedal edema. - Routine Neurological Exam Present: alert, oriented X3 - Urinary Catheter Management Indwelling Urethral Catheter Cath placed during this visit: yes Reason for continuing: Acute urinary retention Insertion date: 04/17/18 Insertion time: 15:15 Results - Labs CBC & Chem 7: 04/18/18 03:28 04/18/18 03:28 Laboratory Results - last 24 hr 04/18/18 04/18/18 04/18/18 12:00 12:06 16:44 POC Glucose 230 H 275 H Digoxin 0.5 L 04/18/18 04/18/18 04/19/18 20:23 23:29 03:29 POC Glucose 289 H 244 H 220 H Digoxin Microbiology 04/17/18 14:08 Blood - Peripheral Aerobic Blood Culture - Preliminary No growth in 1 day 04/17/18 14:08 Blood - Peripheral Anaerobic Blood Culture - Preliminary No growth in 1 day 04/17/18 14:03 Blood - Peripheral Aerobic Blood Culture - Preliminary No growth in 1 day 04/17/18 14:03 Blood - Peripheral Anaerobic Blood Culture - Preliminary No growth in 1 day Assessment and Plan - Plan 1. Acute hypercapnic and hypoxemic respiratory failure/ COPD exacerbation- improved and now stable on N/C. continue with IV steroid, antibiotics along with neb treatment. pulmonary following. patient is on home oxygen. 3. Hypertension; will resume home meds within the next 24 hrs. 4. Atrial fibrillation; continue aspirin and Digoxin. 5. Diabetes mellitus; on accu-check with SSI. DVt prophylaxis with subq Lovenox consult PT. transfer to floor. Discharge Planning: dc planning; within the next 48 hrs- pending PT evaluation.
[2018-04-19] MEDS: Pantoprazole Sodium 20 MG DR Tablet PO SCH (09:10)
[2018-04-19] MEDS: Digoxin 125 MCG Tablet PO SCH (09:10)
[2018-04-19] MEDS: Mometasone Furoate 50 MCG/ACT 17 GM Nasal Spray Bottle EACH NARE SCH ×2 (09:11→21:38)
[2018-04-19] MEDS: Senna/Docusate Sodium 8.6/50 MG Tablet PO SCH ×2 (09:11→21:39)
[2018-04-19] MEDS: Budesonide-Formoterol 160/4.5 MCG 6 GM Inhaler INH SCH ×2 (09:12→21:38)
[2018-04-19] MEDS: Enoxaparin Inj 40 MG/0.4 ML Syringe SQ SCH (16:30)
--- NOTE | 2018-04-19 20:05 | P.PNPL ---
Subjective Interval history: 72 YOWM with Severe COPD with exac, LEOBARDO Breathing better Used CPAP last night Weaned to NC Up in chair Physical Exam Vital signs: Vital Signs 04/19/18 00:00 04/19/18 00:30 04/19/18 04:00 Temperature 98.5 F 98.6 F Pulse Rate 86 92 H 86 Respiratory Rate 15 25 H 14 Blood Pressure 108/55 L 124/62 Pulse Oximetry 93 L 94 L 04/19/18 04:06 04/19/18 08:00 04/19/18 08:58 Temperature 97.6 F Pulse Rate 88 90 89 Respiratory Rate 13 24 16 Blood Pressure 130/68 Pulse Oximetry 93 L 94 L 95 04/19/18 10:00 04/19/18 11:46 04/19/18 12:00 Temperature 98.2 F Pulse Rate 100 H 100 H 100 H Respiratory Rate 18 27 H Blood Pressure 129/71 Pulse Oximetry 94 L 04/19/18 16:00 04/19/18 16:48 Temperature 97.7 F Pulse Rate 84 76 Respiratory Rate 16 17 Blood Pressure 121/60 Pulse Oximetry 97 Intake & Output 04/19/18 04/19/18 04/20/18 06:59 18:59 06:59 Intake Total 2040 / 2040 2000 / 2000 Output Total 2400 / 2400 2700 / 2700 Balance -360 / -360 -700 / -700 Weight 117.2 kg Intake: IV 600 / 600 200 / 200 1/2 Normal Saline Inj 1,000 ML 400 / 400 @ 75 mls/hr IV.CONT .[id number] [facility] Rx#:[id number] Zosyn 4.5 GM Premix 4.5 gm In 200 / 200 200 / 200 100 ml @ 200 mls/hr IV.SIG Q6H [facility] Rx#:[id number] Oral 1440 / 1440 1800 / 1800 Output: Urine 2700 / 2700 Urine Amount (Catheter) 2400 / 2400 Indwelling Urethral Catheter 2400 / 2400 Other: Date of Last Bowel Movement 04/19/18 # Bowel Movements 1 GENERAL: Elderly WM, NAD SKIN: Warm and dry. HEAD: Normocephalic. EYES: No scleral icterus. No injection or drainage. NECK: Supple, trachea midline. No JVD or lymphadenopathy. CARDIOVASCULAR: Regular rate and rhythm without murmurs, gallops, or rubs. RESPIRATORY: Breath sounds equal bilaterally. No accessory muscle use. GASTROINTESTINAL: Abdomen soft, non-tender, nondistended. MUSCULOSKELETAL: No cyanosis, or edema. BACK: Nontender without obvious deformity. No CVA tenderness. - Urinary Catheter Management Indwelling Urethral Catheter Cath placed during this visit: yes, but has since been removed by the nurse Reason for continuing: Decision to DC catheter Insertion date: 04/17/18 Insertion time: 15:15 Removal date: 04/19/18 Removal time: 15:00 Assessment and Plan - Plan IMPRESSION: 1. Hypercapnic respiratory failure. 2. Chronic obstructive pulmonary disease exacerbation. 3. Bibasilar lung infiltrates. 4. Obstructive sleep apnea. 5. Diabetes mellitus. PLAN: CPAP at Night Supplement 02 to keep sat 88-92% IV Solumedrol Cont ABX Aerosol nebs SQ Lovenox Digoxin 0.125 mg daily
[2018-04-20] MEDS: MethylPREDNISolone Sod Succinate Inj 125 MG/2 ML Vial IV.PUSH SCH ×2 (00:35→08:03)
[2018-04-20] MEDS: Morphine Sulfate 15 MG SR Tablet PO SCH ×3 (02:28→17:41)
[2018-04-20] MEDS: Insulin NovoLOG Aspart Correctional Sugar Inj SQ SCH ×5 (06:27→20:31)
[2018-04-20] MEDS: Piperacil/Tazo 4.5 GM Premix 4.5 GM/100 ML BAG IV.SIG SCH ×4 (06:27→22:31)
[2018-04-20] MEDS: Chlorhexidine Gluconate 2% 1 Pack (2 Cloths) TOPICAL SCH (06:28)
[2018-04-20] MEDS: Pantoprazole Sodium 20 MG DR Tablet PO SCH (08:02)
[2018-04-20] MEDS: Senna/Docusate Sodium 8.6/50 MG Tablet PO SCH ×2 (08:03→20:32)
[2018-04-20] MEDS: Mometasone Furoate 50 MCG/ACT 17 GM Nasal Spray Bottle EACH NARE SCH ×2 (08:03→21:34)
[2018-04-20] MEDS: Budesonide-Formoterol 160/4.5 MCG 6 GM Inhaler INH SCH ×2 (08:04→21:34)
[2018-04-20] MEDS: Digoxin 125 MCG Tablet PO SCH (08:05)
--- NOTE | 2018-04-20 09:10 | P.PNIM ---
Subjective Interval history: in no acute distress. stable on oxygen via N/C. no fever. d/w the RN and no acute issues over night. Physical Exam Vital signs: Vital Signs 04/19/18 10:00 04/19/18 11:46 04/19/18 12:00 Temperature 98.2 F Pulse Rate 100 H 100 H 100 H Respiratory Rate 18 27 H Blood Pressure 129/71 Pulse Oximetry 94 L 04/19/18 16:00 04/19/18 16:48 04/19/18 20:00 Temperature 97.7 F 97.8 F Pulse Rate 84 76 70 Respiratory Rate 16 17 14 Blood Pressure 121/60 115/54 L Pulse Oximetry 97 98 04/19/18 20:03 04/19/18 20:07 04/19/18 23:44 Temperature Pulse Rate 96 H 71 Respiratory Rate 16 13 Blood Pressure Pulse Oximetry 93 L 94 L 96 04/20/18 00:00 04/20/18 04:00 04/20/18 04:29 Temperature 97.8 F 97.7 F Pulse Rate 68 64 65 Respiratory Rate 14 17 17 Blood Pressure 136/66 157/74 H Pulse Oximetry 96 94 L 95 04/20/18 07:29 Temperature Pulse Rate 64 Respiratory Rate 18 Blood Pressure Pulse Oximetry 95 Intake & Output 04/19/18 04/20/18 04/20/18 18:59 06:59 18:59 Intake Total 1999 / 1999 100 / 100 100 / 100 Output Total 2700 / 2700 1300 / 1300 Balance -700 / -700 -1200 / -1200 100 / 100 Intake: IV 200 / 200 100 / 100 100 / 100 Zosyn 4.5 GM Premix 4.5 gm In 200 / 200 100 / 100 100 / 100 100 ml @ 200 mls/hr IV.SIG Q6H TEVIN Rx#:[id number] Oral 1800 / 1800 Output: Urine 2700 / 2700 1300 / 1300 Other: Date of Last Bowel Movement 04/19/18 04/19/18 # Bowel Movements 1 - Constitutional no acute distress - Routine Respiratory Exam Present: diminished air movement - Routine Cardiovascular Exam Present: RRR - Routine Abdominal Exam Present: soft - Routine Extremities Exam Comments: no pedal edema. - Routine Neurological Exam Present: alert, oriented X3 - Urinary Catheter Management Indwelling Urethral Catheter Cath placed during this visit: yes, but has since been removed by the nurse Reason for continuing: Decision to DC catheter Insertion date: 04/17/18 Insertion time: 15:15 Removal date: 04/19/18 Removal time: 15:00 Results - Labs CBC & Chem 7: 04/18/18 03:28 04/18/18 03:28 Laboratory Results - last 24 hr 04/19/18 04/19/18 04/19/18 11:49 16:14 21:45 POC Glucose 275 H 312 H 310 H 04/20/18 04/20/18 06:23 07:54 POC Glucose 202 H 252 H Microbiology 04/17/18 14:08 Blood - Peripheral Aerobic Blood Culture - Preliminary No growth in 2 days 04/17/18 14:08 Blood - Peripheral Anaerobic Blood Culture - Preliminary No growth in 2 days 04/17/18 14:03 Blood - Peripheral Aerobic Blood Culture - Preliminary No growth in 2 days 04/17/18 14:03 Blood - Peripheral Anaerobic Blood Culture - Preliminary No growth in 2 days Assessment and Plan - Plan 1. Acute hypercapnic and hypoxemic respiratory failure/ COPD exacerbation- improved and now stable on N/C. continue with IV steroid; will start to taper down- , antibiotics along with neb treatment. pulmonary following. patient is on home oxygen. 3. Hypertension; will resume home meds within the next 24 hrs. 4. Atrial fibrillation; continue aspirin and Digoxin.resume Casrdizem. 5. Diabetes mellitus; on accu-check with SSI. DVt prophylaxis with subq Lovenox consulted PT. for transfer to floor. Discharge Planning: dc planning; within the next 24-48 hrs if stable and cleared by pulmonary.
[2018-04-20] MEDS: dilTIAZem CD 240 MG Capsule PO SCH (09:51)
[2018-04-20] MEDS ORDERED: MethylPREDNISolone Sod Succinate Inj 40 MG/ML Vial IV.PUSH SCH (10:00)
--- NOTE | 2018-04-20 15:56 | P.PNPL ---
Subjective Interval history: 72 YOWM with Severe COPD with exac, LEOBARDO Breathing better Used CPAP last night Weaned to NC Up in chair at BS Physical Exam Vital signs: Vital Signs 04/19/18 16:00 04/19/18 16:48 04/19/18 20:00 Temperature 97.7 F 97.8 F Pulse Rate 84 76 70 Respiratory Rate 16 17 14 Blood Pressure 121/60 115/54 L Pulse Oximetry 97 98 04/19/18 20:03 04/19/18 20:07 04/19/18 23:44 Temperature Pulse Rate 96 H 71 Respiratory Rate 16 13 Blood Pressure Pulse Oximetry 93 L 94 L 96 04/20/18 00:00 04/20/18 04:00 04/20/18 04:29 Temperature 97.8 F 97.7 F Pulse Rate 68 64 65 Respiratory Rate 14 17 17 Blood Pressure 136/66 157/74 H Pulse Oximetry 96 94 L 95 04/20/18 07:29 04/20/18 08:00 04/20/18 10:54 Temperature 98.6 F Pulse Rate 64 64 Respiratory Rate 18 25 H 18 Blood Pressure 165/77 H Pulse Oximetry 95 93 L 04/20/18 11:10 04/20/18 12:00 04/20/18 15:14 Temperature 98.8 F Pulse Rate 88 64 98 H Respiratory Rate 22 25 H 20 Blood Pressure 165/77 H Pulse Oximetry 93 L Intake & Output 04/19/18 04/20/18 04/20/18 18:59 06:59 18:59 Intake Total 1999 / 1999 100 / 100 200 / 200 Output Total 2700 / 2700 1300 / 1300 Balance -700 / -700 -1200 / -1200 200 / 200 Intake: IV 200 / 200 100 / 100 200 / 200 Zosyn 4.5 GM Premix 4.5 gm In 200 / 200 100 / 100 200 / 200 100 ml @ 200 mls/hr IV.SIG Q6H TEVIN Rx#:[id number] Oral 1800 / 1800 Output: Urine 2700 / 2700 1300 / 1300 Other: Date of Last Bowel Movement 04/19/18 04/19/18 04/19/18 # Bowel Movements 1 GENERAL: Elderly WM NAD SKIN: Warm and dry. HEAD: Normocephalic. EYES: No scleral icterus. No injection or drainage. NECK: Supple, trachea midline. No JVD or lymphadenopathy. CARDIOVASCULAR: Regular rate and rhythm without murmurs, gallops, or rubs. RESPIRATORY: Breath sounds equal bilaterally. No accessory muscle use. GASTROINTESTINAL: Abdomen soft, non-tender, nondistended. MUSCULOSKELETAL: No cyanosis, or edema. BACK: Nontender without obvious deformity. No CVA tenderness. - Urinary Catheter Management Indwelling Urethral Catheter Cath placed during this visit: yes, but has since been removed by the nurse Reason for continuing: Decision to DC catheter Insertion date: 04/17/18 Insertion time: 15:15 Removal date: 04/19/18 Removal time: 15:00 Assessment and Plan - Plan IMPRESSION: 1. Hypercapnic respiratory failure. 2. Chronic obstructive pulmonary disease exacerbation. 3. Bibasilar lung infiltrates. 4. Obstructive sleep apnea. 5. Diabetes mellitus. PLAN: CPAP at Night Supplement 02 to keep sat 88-92% IV Solumedrol Change to PO Prednisone in AM Cont ABX Aerosol nebs SQ Lovenox Digoxin 0.125 mg daily DC plans underway DW pt and his at BS.
[2018-04-20] MEDS: Enoxaparin Inj 40 MG/0.4 ML Syringe SQ SCH (16:06)
--- NOTE | 2018-04-20 16:08 | P.DCO ---
- Physical Therapy Order: Evaluate and treat - Home Health Nursing Order: Medical education, Signs/symptoms of disease process, Medication education-adverse effect, Nursing assessment with vital signs - Certification I have seen patient Jerome Frost on 04/20/18. My clinical findings support the need for the requested home health care services because: Limited mobility due to disease progression, Patient has SOB I certify that my clinical findings support that this patient is homebound because: Hx COPD - exertion dyspnea/weakness
[2018-04-21] MEDS: Insulin NovoLOG Aspart Correctional Sugar Inj SQ SCH ×3 (00:27→08:56)
[2018-04-21] MEDS: Morphine Sulfate 15 MG SR Tablet PO SCH ×2 (05:16→09:38)
[2018-04-21] MEDS: Chlorhexidine Gluconate 2% 1 Pack (2 Cloths) TOPICAL SCH (05:32)
[2018-04-21] MEDS: Piperacil/Tazo 4.5 GM Premix 4.5 GM/100 ML BAG IV.SIG SCH (05:37)
[2018-04-21 07:21] VITALS: RESP 20; O2SAT 95
[2018-04-21 08:30] VITALS: BP 143/74; PULSE 77; TEMP 99
[2018-04-21] MEDS: Pantoprazole Sodium 20 MG DR Tablet PO SCH (08:32)
[2018-04-21] MEDS: dilTIAZem CD 240 MG Capsule PO SCH (08:32)
[2018-04-21] MEDS: Digoxin 125 MCG Tablet PO SCH (08:32)
[2018-04-21] MEDS: Senna/Docusate Sodium 8.6/50 MG Tablet PO SCH (08:33)
[2018-04-21] MEDS: Budesonide-Formoterol 160/4.5 MCG 6 GM Inhaler INH SCH (08:33)
[2018-04-21] MEDS: Mometasone Furoate 50 MCG/ACT 17 GM Nasal Spray Bottle EACH NARE SCH (08:33)
[2018-04-21] MEDS ORDERED: predniSONE 20 MG Tablet PO SCH (09:00)
--- NOTE | 2018-04-21 09:03 | P.PNIM ---
Subjective Interval history: f/u; copd exacerbation resting comfortably- stable on oxygen via N/C. no new complaints. wants to go home. d/w the RN and no acute issues over night. Physical Exam Vital signs: Vital Signs 04/20/18 10:54 04/20/18 11:10 04/20/18 12:00 Temperature 98.8 F Pulse Rate 88 64 Respiratory Rate 18 22 25 H Blood Pressure 165/77 H Pulse Oximetry 93 L 04/20/18 15:14 04/20/18 16:00 04/20/18 18:49 Temperature 98.2 F Pulse Rate 98 H 100 H Respiratory Rate 20 25 H 22 Blood Pressure 127/73 Pulse Oximetry 93 L 04/20/18 19:38 04/20/18 20:00 04/20/18 22:17 Temperature 98.0 F Pulse Rate 75 82 Respiratory Rate 18 22 Blood Pressure 139/67 Pulse Oximetry 95 94 L 98 04/20/18 23:36 04/20/18 23:38 04/21/18 00:00 Temperature 97.9 F Pulse Rate 59 L 55 L Respiratory Rate 14 24 Blood Pressure 161/75 H Pulse Oximetry 97 98 04/21/18 03:27 04/21/18 04:00 04/21/18 07:20 Temperature 98.0 F Pulse Rate 60 62 84 Respiratory Rate 18 14 20 Blood Pressure 154/72 H Pulse Oximetry 98 94 L 95 04/21/18 08:00 Temperature 99.0 F Pulse Rate 77 Respiratory Rate 20 Blood Pressure 143/74 H Pulse Oximetry 95 Intake & Output 04/20/18 04/21/18 04/21/18 18:59 06:59 18:59 Intake Total 2300 / 2300 2200 / 2200 Output Total 3475 / 3475 3475 / 3475 Balance -1175 / -1175 -1275 / -1275 Weight 112.3 kg Intake: IV 300 / 300 200 / 200 Zosyn 4.5 GM Premix 4.5 gm In 300 / 300 200 / 200 100 ml @ 200 mls/hr IV.SIG Q6H TEVIN Rx#:[id number] Oral 1999 Output: Urine 3475 / 3475 3475 / 3475 Other: # Voids 4 4 Date of Last Bowel Movement 08/29/18 08/29/18 08/31/18 # Bowel Movements 1 - Constitutional no acute distress - Routine Respiratory Exam Present: CTA bilaterally - Routine Cardiovascular Exam Present: RRR - Routine Abdominal Exam Present: soft - Routine Extremities Exam Comments: no pedal edema. - Routine Neurological Exam Present: alert, oriented X3 - Urinary Catheter Management Indwelling Urethral Catheter Cath placed during this visit: yes, but has since been removed by the nurse Reason for continuing: Decision to DC catheter Insertion date: 04/17/18 Insertion time: 15:15 Removal date: 04/19/18 Removal time: 15:00 Results - Labs CBC & Chem 7: 04/18/18 03:28 04/18/18 03:28 Laboratory Results - last 24 hr 04/20/18 04/20/18 04/20/18 11:59 15:46 15:47 POC Glucose 312 H 547 H* 492 H* 04/20/18 04/20/18 04/20/18 15:48 15:53 19:35 POC Glucose 357 H 380 H 277 H 04/20/18 04/21/18 23:14 04:58 POC Glucose 227 H 108 Microbiology 04/17/18 14:08 Blood - Peripheral Aerobic Blood Culture - Preliminary No growth in 3 days 04/17/18 14:08 Blood - Peripheral Anaerobic Blood Culture - Preliminary No growth in 3 days 04/17/18 14:03 Blood - Peripheral Aerobic Blood Culture - Preliminary No growth in 3 days 04/17/18 14:03 Blood - Peripheral Anaerobic Blood Culture - Preliminary No growth in 3 days - Procedures none. Assessment and Plan - Plan 1. Acute hypercapnic and hypoxemic respiratory failure/ COPD exacerbation- improved and now stable on N/C. will switch to oral steroids upon discharge , antibiotics along with neb treatment. pulmonary following. patient is on home oxygen. 3. Hypertension; resume home meds upon discharge. 4. Atrial fibrillation; continue aspirin and Digoxin.resume Casrdizem. 5. Diabetes mellitus; on accu-check with SSI. Discharge Planning: dc home with C today. see med list. f/u; pcp and pulmonary. d/w the patient and RN. Ca was reviewed.
--- NOTE | 2018-04-21 09:08 | P.DS ---
Date of admission: 04/17/18 15:05 Primary care physician: Parviz Covington MD Brief History from admission: The patient is a 72-year-old male with past medical history of end-stage COPD, on 2-4 liters of oxygen at home and obstructive sleep apnea, who presented to [facility] ED for shortness of breath and episodes of desaturation. He is being followed up by Dr. 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 His home health nurse found him hypoxic, with saturations in the mid 80s. DS: Medications - Discharge Medications Prescriptions: pantoprazole [Protonix] 20 mg PO DAILY 10 Days #10 tab prednisone 5 mg PO DIRECTED 10 Days #10 tab DS: Summary Hospital Course: patient was admitted with respiratory failure/ COPD exacerbation. he was started on IV steroids, neb neb treatment. pulmonary consulted. his condition improved and remained stable on N/C prior to discharge.he will have a f/u with his pcp and pulmonary upon discharge. - Time Spent with Patient Total time spent providing and/or coordinating discharge services: Less than 30 minutes - Quality: VTE Deep Vein Thrombosis/Pulmonary Embolism Present on Admission: No Exam Vital signs: Vital Signs 04/20/18 10:54 04/20/18 11:10 04/20/18 12:00 Temperature 98.8 F Pulse Rate 88 64 Respiratory Rate 18 22 25 H Blood Pressure 165/77 H Pulse Oximetry 93 L 04/20/18 15:14 04/20/18 16:00 04/20/18 18:49 Temperature 98.2 F Pulse Rate 98 H 100 H Respiratory Rate 20 25 H 22 Blood Pressure 127/73 Pulse Oximetry 93 L 04/20/18 19:38 04/20/18 20:00 04/20/18 22:17 Temperature 98.0 F Pulse Rate 75 82 Respiratory Rate 18 22 Blood Pressure 139/67 Pulse Oximetry 95 94 L 98 04/20/18 23:36 04/20/18 23:38 04/21/18 00:00 Temperature 97.9 F Pulse Rate 59 L 55 L Respiratory Rate 14 24 Blood Pressure 161/75 H Pulse Oximetry 97 98 04/21/18 03:27 04/21/18 04:00 04/21/18 07:20 Temperature 98.0 F Pulse Rate 60 62 84 Respiratory Rate 18 14 20 Blood Pressure 154/72 H Pulse Oximetry 98 94 L 95 04/21/18 08:00 Temperature 99.0 F Pulse Rate 77 Respiratory Rate 20 Blood Pressure 143/74 H Pulse Oximetry 95 Intake & Output 04/20/18 04/21/18 04/21/18 18:59 06:59 18:59 Intake Total 2300 / 2300 2200 / 2200 Output Total 3475 / 3475 3475 / 3475 Balance -1175 / -1175 -1275 / -1275 Weight 112.3 kg Intake: IV 300 / 300 200 / 200 Zosyn 4.5 GM Premix 4.5 gm In 300 / 300 200 / 200 100 ml @ 200 mls/hr IV.SIG Q6H TEVIN Rx#:[id number] Oral 1999 Output: Urine 3475 / 3475 3475 / 3475 Other: # Voids 4 4 Date of Last Bowel Movement 04/19/18 04/19/18 04/21/18 # Bowel Movements 1 - Constitutional no acute distress - Routine Respiratory Exam Present: CTA bilaterally - Routine Cardiovascular Exam Present: RRR - Routine Abdominal Exam Present: soft - Routine Extremities Exam Comments: no pedal edema. - Routine Neurological Exam Present: alert, oriented X3 Results Procedures completed during hospitalization: none. Labs on day of discharge: Labs from last 24 hours 04/21/18 04/20/18 04/20/18 04:58 23:14 19:35 POC Glucose 108 227 H 277 H 04/20/18 04/20/18 04/20/18 15:53 15:48 15:47 POC Glucose 380 H 357 H 492 H* 04/20/18 04/20/18 15:46 11:59 POC Glucose 547 H* 312 H Preliminary micro results at discharge 04/17/18 14:08 Aerobic Blood Culture - Preliminary Blood - Peripheral No growth in 3 days Anaerobic Blood Culture - Preliminary No growth in 3 days 04/17/18 14:03 Aerobic Blood Culture - Preliminary Blood - Peripheral No growth in 3 days Anaerobic Blood Culture - Preliminary No growth in 3 days - Impressions ITS Impressions Venous Doppler Study 04/17/18 00:00 CONCLUSION: No DVT. Chest X-Ray 04/17/18 13:52 CONCLUSION: No significant change compared 04/03/2018. Chest CTA 04/17/18 15:06 CONCLUSION: 1. Limited CT PE examination despite repeat scanning. 2. The pulmonary arteries are visualized to the proximal segmental level without evidence for pulmonary embolism. More distal segmental and subsegmental branches are inadequately visualized for definitive evaluation. 3. Main pulmonary artery is prominent and consistent with some degree of pulmonary artery hypertension. 4. Dense airspace consolidation with associated volume loss in the lower lobes , right greater than left and inferior right middle lobe. Differential considerations include aspiration and pneumonia in the appropriate clinical setting. 5. Solitary prominent right hilar node measuring up to 10 mm. This is very nonspecific and may be reactive/infectious in etiology. Discharge Plan - Discharge Disposition Patient Disposition: 06 Disch W/Home Health Service - Discharge Condition Condition: Stable - Physicians Team Primary Care Provider: Parviz Covington Attending Provider: Norberto Quintero Other Providers: Jose Wall MD ; [employer]
== END 2018-04-21 10:12 | disposition home health service (06) ==
LOC: NEPC 13:15 → NEDA 15:05 → N03 16:54
PROVIDERS: ADMIT Internal Medicine; ATTEND Internal Medicine